=== PATIENT | male | born 1940 | race Caucasian/White ===

== ENCOUNTER 2016-11-15 10:09 | Emergency (ER) | payer MEDICARE, OTHER ==
[2016-11-15] MEDS ORDERED: IPRATROPIUM-ALBUTEROL 3 ML NEB INHALATION STA (10:27)
[2016-11-15] MEDS ORDERED: RX INFO: IV CONTRAST WAS GIVEN 1 EACH MISC MISCELLANE PRN (10:56)
[2016-11-15 10:58] LABS: Basophils # (A) 0.1 k/uL (0-0.2); Basophils % (A) 1 %; CH 31.1; CHCM 33.5; Eosinophils # (A) 0.2 k/uL (0-0.7); Eosinophils % (A) 3 %; HCT 41.3 % (39.0-53.0); HDW 2.22; HGB 13.7 gm/dL (13.0-17.5); Luc # (Auto) 0.12; Luc % (Auto) 2; Lymphocytes % (A) 13 %; MCHC 33.1 g/dL (31.0-37.0); MCV 93.4 fL (80.0-100.0); Mean Platelet Volume 6.7; Monocytes # (A) 0.5 k/uL (0-1.0); Monocytes % (A) 7 %; Neutrophils % (A) 76 %; RBC 4.42 m/uL (4.30-5.90); RDW 13.1 % (11.5-15.5); WBC 7.9 k/uL (3.8-10.6); WBC (Perox) 7.99
[2016-11-15 11:06] LABS: INR 1.1 (<1.1); Partial Thromboplastin Time 22.6 sec (22.0-30.0)
[2016-11-15 11:07] LABS: ALT 15 U/L (21-72); AST 23 U/L (17-59); Alkaline Phosphatase 78 U/L (38-126); Anion Gap 11 mmol/L; Blood Urea Nitrogen 11 mg/dL (9-20); Calcium 9.2 mg/dL (8.4-10.2); Carbon Dioxide 27 mmol/L (22-30); Chloride 105 mmol/L (98-107); Glucose 103 mg/dL (74-99); Magnesium 1.9 mg/dL (1.6-2.3); Non-African American GFR(MDRD) >60 (>60 ml/min/1.73 sqM); Potassium 3.9 mmol/L (3.5-5.1); Sodium 143 mmol/L (137-145); Total Bilirubin 0.8 mg/dL (0.2-1.3); Total Protein 7.6 g/dL (6.3-8.2)
[2016-11-15 11:09] VITALS: RESP 18
[2016-11-15 11:24] LABS: Creatine Kinase 57 U/L (55-170)
[2016-11-15 11:37] LABS: Creatine Kinase MB 0.4 ng/mL (0.0-2.4); Troponin I <0.012 ng/mL (0.000-0.034)
--- NOTE | 2016-11-15 11:54 | XR ---
EXAMINATION TYPE: XR chest 2V DATE OF EXAM: 11/15/2016 11:22 AM COMPARISON: Chest x-ray August HISTORY: Difficulty breathing, dyspnea TECHNIQUE: Frontal and lateral views of the chest are obtained. FINDINGS: Bilateral airspace disease is noted with associated bronchiectasis at the lung bases, ther e is a scarring. Pleural calcification noted along the right hemidiaphragm. There is no pneumothorax or pleural effusion. Heart size is stable. There are overlying cardiac leads. IMPRESSION: Correlate for pneumonia bilaterally, bronchiectasis.
--- NOTE | 2016-11-15 12:11 | CT ---
EXAMINATION TYPE: CT angio chest DATE OF EXAM: 11/15/2016 11:43 AM COMPARISON: NONE HISTORY: Shortness of breath. CT DLP: 323.8 mGycm Automated exposure control for dose reduction was used. CONTRAST: CTA scan of the thorax is performed with IV Contrast, patient injected with 100 mL of Omnipaque 300, pulmonary embolism protocol. FINDINGS: There is extensive bronchiectasis and consolidation at both lung bases. There are groundgla ss opacities throughout the left lung. There is a 9.3 mm spiculated density in the posterior segment of the right upper lobe. There is a 2.9 cm groundglass nodule in the apical posterior segment of the right upper lobe. There is a 2.8 cm groundglass nodule in the left lingula. There is a solid-appearin g 9.4 mm nodule in the left lingula best seen on image 82. There is a 3 cm ground glass nodule in the anterior segment of the left upper lobe. There is no significant axillary adenopathy. There are small shoddy aortopulmonary window lymph nodes . No pathologically enlarged lymph nodes are seen. This examination is negative for pulmonary embolus. The aorta is normal in caliber without evidence of dissection. The heart is enlarged. There is no ple ural or pericardial fluid. There is pleural calcification overlying the right hemidiaphragm. There is evidence of old granulomatous disease within the spleen. There is a 4.9 cm exophytic mass arising from the upper pole of the right kidney. This likely represe nts a cyst. Visualized portions of the upper abdomen are otherwise unremarkable. 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 IMPRESSION: 1. THIS EXAMINATION IS NEGATIVE FOR PULMONARY EMBOLUS. 2. EXTENSIVE BRONCHIECTASIS IN THE LOWER LOBES BILATERALLY. 3. EXTENSIVE GROUNDGLASS OPACITIES WELL SOLID PULMONARY NODULES PRESENT BILATERALLY. 4. EVIDENCE OF OLD SPECIFICITY EXPOSURE. 5. EVIDENCE OF OLD GRANULOMATOUS DISEASE WITHIN THE SPLEEN. 6. PROBABLE CYST IN THE UPPER POLE OF THE RIGHT KIDNEY. THIS SHOULD BE CONFIRMED WITH ULTRASOUND. 7. 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
--- NOTE | 2016-11-15 12:14 | ED ---
SOB HPI - General Chief Complaint: Shortness of Breath Stated Complaint: diff breathing Time Seen by Provider: 11/15/16 10:20 Source: patient, RN notes reviewed Mode of arrival: ambulatory Limitations: no limitations - History of Present Illness Initial Comments: This is a 76-year-old male with a history of bronchiectasis who presents with complaints of some chest discomfort occurs with breathing. He describes pleuritic type discomfort especially on the left no overt fevers chills and sweats he states he coughs all the time. He was instructed to come here for evaluation. He denies any chest pain at rest 1 with deep breathing no palpitations no lightheadedness or dizziness no other symptoms MD Complaint: shortness of breath, chest pain - Related Data Home Medications Medication Instructions Recorded Confirmed Albuterol Nebulized [Ventolin 2.5 mg INHALATION RT-Q4H PRN 11/15/16 11/15/16 Nebulized] Aspirin 81 mg PO DAILY 11/15/16 11/15/16 Ciprofloxacin HCl [Cipro] 500 mg PO Q12HR 11/15/16 11/15/16 Levothyroxine Sodium [Synthroid] 100 mcg PO DAILY 11/15/16 11/15/16 Omeprazole [PriLOSEC] 20 mg PO AC-BRKFST 11/15/16 11/15/16 Tamsulosin HCl [Flomax] 0.4 mg PO HS 11/15/16 11/15/16 Allergies Allergy/AdvReac Type Severity Reaction Status Date / Time No Known Allergies Allergy Verified 11/15/16 11:16 Review of Systems ROS Statement: Those systems with pertinent positive or pertinent negative responses have been documented in the HPI. ROS Other: All systems not noted in ROS Statement are negative. Past Medical History Additional Past Medical History / Comment(s): Bronchiectasis History of Any Multi-Drug Resistant Organisms: None Reported Past Surgical History: Orthopedic Surgery Additional Past Surgical History / Comment(s): thyroidectomy, right knee Past Psychological History: No Psychological Hx Reported Smoking Status: Former smoker Past Alcohol Use History: Occasional Past Drug Use History: None Reported General Exam - General Exam Comments Initial Comments: This is a well-developed well-nourished awake alert oriented 3 male Limitations: no limitations General appearance: alert, in no apparent distress Head exam: Present: atraumatic, normocephalic, normal inspection Eye exam: Present: normal appearance, PERRL, EOMI. Absent: scleral icterus, conjunctival injection, periorbital swelling ENT exam: Present: normal exam, mucous membranes moist Neck exam: Present: normal inspection. Absent: tenderness, meningismus, lymphadenopathy Respiratory exam: Present: rhonchi, decreased breath sounds. Absent: respiratory distress, wheezes, rales, stridor Cardiovascular Exam: Present: regular rate, normal rhythm, normal heart sounds. Absent: systolic murmur, diastolic murmur, rubs, gallop, clicks GI/Abdominal exam: Present: soft, normal bowel sounds. Absent: distended, tenderness, guarding, rebound, rigid Extremities exam: Present: normal inspection, full ROM, normal capillary refill. Absent: tenderness, pedal edema, joint swelling, calf tenderness Back exam: Present: normal inspection Neurological exam: Present: alert, oriented X3, CN II-XII intact Psychiatric exam: Present: normal affect, normal mood Skin exam: Present: warm, dry, intact, normal color. Absent: rash Course Vital Signs 11/15/16 11/15/16 11/15/16 10:10 10:58 11:07 Temperature 97.2 F L Pulse Rate 93 80 Respiratory 18 16 18 Rate Blood Pressure 153/74 O2 Sat by Pulse 91 L Oximetry 11/15/16 11/15/16 11/15/16 11:24 11:51 12:29 Temperature 98.4 F Pulse Rate 78 81 77 Respiratory 18 18 18 Rate Blood Pressure 137/81 129/75 153/82 O2 Sat by Pulse 94 L 95 95 Oximetry Medical Decision Making - Medical Decision Making I did discuss findings with the patient and with Dr. Vela. Patient be placed on oral steroids the patient will be discharged. - Lab Data Result diagrams: 11/15/16 10:45 11/15/16 10:45 Lab Results 11/15/16 11/15/16 11/15/16 Range/Units 10:45 10:45 10:45 WBC 7.9 (3.8-10.6) k/uL RBC 4.42 (4.30-5.90) m/uL Hgb 13.7 (13.0-17.5) gm/dL Hct 41.3 (39.0-53.0) % MCV 93.4 (80.0-100.0) fL MCH 31.0 (25.0-35.0) pg MCHC 33.1 (31.0-37.0) g/dL RDW 13.1 (11.5-15.5) % Plt Count 275 (150-450) k/uL Neutrophils % 76 % Lymphocytes % 13 % Monocytes % 7 % Eosinophils % 3 % Basophils % 1 % Neutrophils # 6.0 (1.3-7.7) k/uL Lymphocytes # 1.0 (1.0-4.8) k/uL Monocytes # 0.5 (0-1.0) k/uL Eosinophils # 0.2 (0-0.7) k/uL Basophils # 0.1 (0-0.2) k/uL PT (9.0-12.0) sec INR (<1.1) APTT (22.0-30.0) sec Sodium 143 (137-145) mmol/L Potassium 3.9 (3.5-5.1) mmol/L Chloride 105 (98-107) mmol/L Carbon Dioxide 27 (22-30) mmol/L Anion Gap 11 mmol/L BUN 11 (9-20) mg/dL Creatinine 0.62 L (0.66-1.25) mg/dL Est GFR (MDRD) Af Amer >60 (>60 ml/min/1.73 sqM) Est GFR (MDRD) Non-Af >60 (>60 ml/min/1.73 sqM) Glucose 103 H (74-99) mg/dL Calcium 9.2 (8.4-10.2) mg/dL Magnesium 1.9 (1.6-2.3) mg/dL Total Bilirubin 0.8 (0.2-1.3) mg/dL AST 23 (17-59) U/L ALT 15 L (21-72) U/L Alkaline Phosphatase 78 (38-126) U/L Total Creatine Kinase 57 (55-170) U/L CK-MB (CK-2) 0.4 (0.0-2.4) ng/mL CK-MB (CK-2) Rel Index 0.7 Troponin I <0.012 (0.000-0.034) ng/mL NT-Pro-B Natriuret Pep pg/mL Total Protein 7.6 (6.3-8.2) g/dL Albumin 3.9 (3.5-5.0) g/dL 11/15/16 11/15/16 Range/Units 10:45 10:45 WBC (3.8-10.6) k/uL RBC (4.30-5.90) m/uL Hgb (13.0-17.5) gm/dL Hct (39.0-53.0) % MCV (80.0-100.0) fL MCH (25.0-35.0) pg MCHC (31.0-37.0) g/dL RDW (11.5-15.5) % Plt Count (150-450) k/uL Neutrophils % % Lymphocytes % % Monocytes % % Eosinophils % % Basophils % % Neutrophils # (1.3-7.7) k/uL Lymphocytes # (1.0-4.8) k/uL Monocytes # (0-1.0) k/uL Eosinophils # (0-0.7) k/uL Basophils # (0-0.2) k/uL PT 11.0 (9.0-12.0) sec INR 1.1 (<1.1) APTT 22.6 (22.0-30.0) sec Sodium (137-145) mmol/L Potassium (3.5-5.1) mmol/L Chloride (98-107) mmol/L Carbon Dioxide (22-30) mmol/L Anion Gap mmol/L BUN (9-20) mg/dL Creatinine (0.66-1.25) mg/dL Est GFR (MDRD) Af Amer (>60 ml/min/1.73 sqM) Est GFR (MDRD) Non-Af (>60 ml/min/1.73 sqM) Glucose (74-99) mg/dL Calcium (8.4-10.2) mg/dL Magnesium (1.6-2.3) mg/dL Total Bilirubin (0.2-1.3) mg/dL AST (17-59) U/L ALT (21-72) U/L Alkaline Phosphatase (38-126) U/L Total Creatine Kinase (55-170) U/L CK-MB (CK-2) (0.0-2.4) ng/mL CK-MB (CK-2) Rel Index Troponin I (0.000-0.034) ng/mL NT-Pro-B Natriuret Pep 56 pg/mL Total Protein (6.3-8.2) g/dL Albumin (3.5-5.0) g/dL - EKG Data -: EKG Interpreted by Me EKG shows normal: sinus rhythm ([place] [address] QRS duration 96 QT/QTC of 370/444 left exodeviation some evidence of LVH.) - Radiology Data Radiology results: report reviewed (I did review the imaging and reports no acute findings.), image reviewed Disposition Clinical Impression: Bronchiectasis, Pleurisy Disposition: HOME SELF-CARE Condition: Good Instructions: Bronchiectasis (ED), Pleurisy (ED) Additional Instructions: Prednisone taper as directed 30 mg per day 5 days followed by 20 mg a day 5 days followed by 10 mg daily 5 days Referrals: None,Stated [Primary Care Provider] - 1-2 days Vangie Vela MD [STAFF PHYSICIAN] - 1-2 days
[2016-11-15 12:30] VITALS: PULSE 77
[2016-11-15] MEDS ORDERED: methylPREDNISolone SOD SUCCI 125 MG/2 ML VIAL IV STA (13:00)
[2016-11-15 13:15] VITALS: BP 135/79; TEMP 98.8
== END 2016-11-15 13:42 | disposition home or self-care (01) ==
LOC: EC 10:09
DX: J47.9 Bronchiectasis, uncomplicated (principal); R09.1 Pleurisy; Z87.891 Personal history of nicotine dependence; Z79.82 Long term (current) use of aspirin; Z79.899 Other long term (current) drug therapy
CPT/HCPCS: 36415; 94640; 93005; 83880; 80053; 82550; 82553; 83735; 84484; 85025; 85610; 85730; 71020; 71275; 99285; 96374; J2930; Q9967

== ENCOUNTER → 2017-03-06 | Outpatient (CLI) | payer MEDICARE, OTHER ==
[2017-03-06 13:24] LABS: Blood Urea Nitrogen 13 mg/dL (9-20); Non-African American GFR(MDRD) >60 (>60 ml/min/1.73 sqM)
--- NOTE | 2017-03-06 14:28 | CT ---
EXAMINATION TYPE: CT chest w con DATE OF EXAM: 03/06/2017 COMPARISON: 11/15/2016 TECHNIQUE: PA and lateral views submitted. HISTORY: Follow-up pulmonary nodule Contrast: 100 mL Omnipaque 300 FINDINGS: There is a right-sided hydropneumothorax measuring approximately 10-15%. No mediastinal deviation. Multiple pulmonary nodules are again noted and appear to be stable. Large bulla in the left lower lob e. Tree-in-bud appearance within both lower lobes can be seen occasionally with granulomatous disease or opportunistic infection. Areas of consolidation seen bilaterally including anterior segment left upper lobe and posterior segm ent right upper lobe. Marked bronchiectasis is noted involving the lung bases. Incidental note made of a splenic granuloma and coronary artery calcification There is extensive bronchiectasis and consolidation at both lung bases. There are groundglass opaciti es throughout the left lung. There is a 9.3 mm spiculated density in the posterior segment of the rig ht upper lobe. There is a 2.9 cm groundglass nodule in the apical posterior segment of the right uppe r lobe. There is a 2.8 cm groundglass nodule in the left lingula. There is a solid-appearing 9.4 mm n odule in the left lingula. There is a 3 cm ground glass nodule in the anterior segment of the left up per lobe. There is no significant axillary adenopathy. There are small shoddy aortopulmonary window lymph nodes . No pathologically enlarged lymph nodes are seen. Shotty adenopathy in the mediastinum noted. Accessory spleen noted. Cardiomegaly stable. The aorta is normal in caliber without evidence of dissection. The heart is enlarged. There is no ple ural or pericardial fluid. There is pleural calcification overlying the right hemidiaphragm. There is evidence of old granulomatous disease within the spleen. There is a 4.9 cm exophytic mass arising from the upper pole of the right kidney. This likely represe nts a cyst. Visualized portions of the upper abdomen are otherwise unremarkable. 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 Scoliotic curvature of the spine. C onsolidative process. Fatty replacement of the body and tail the pancreas. Atherosclerotic change aor ta. Calcified lymph nodes in the hilum noted. Correlate for chronic obstructive pulmonary disease. IMPRESSION: 1. Approximate 10-15% hydropneumothorax. Report called to patient's physician. 2. Severe changes of bronchiectasis involving the lower lungs bilaterally with bilateral areas of inf iltrate and subsegmental consolidation. Tree-in-bud pattern seen bilaterally which can be associated with atypical or opportunistic infection or granulomatous disease. 3. Multiple pulmonary nodules are again noted and appear stable. Malignancy not excluded. Pleural li cification may been the basis of asbestosis related disease.
== END | disposition home or self-care (01) ==
LOC: RADCTMAIN 12:07
PROVIDERS: ATTEND Internal Medicine
DX: J18.1 Lobar pneumonia, unspecified organism (principal); J47.9 Bronchiectasis, uncomplicated; R91.8 Other nonspecific abnormal finding of lung field; Z88.1 Allergy status to other antibiotic agents
CPT/HCPCS: 82565; 84520; 71260; 36415; Q9967

== ENCOUNTER 2017-08-05 16:47 | Inpatient (IN) | payer MEDICARE, OTHER ==
[2017-08-05] MEDS ORDERED: PNEUMONIA PROTOCOL UTILIZED 1 EACH MISC PO PRN (17:33)
[2017-08-05] MEDS ORDERED: IPRATROPIUM-ALBUTEROL 3 ML NEB INHALATION PRN (17:33)
--- NOTE | 2017-08-05 17:33 | ED ---
General Adult HPI - General Chief complaint: Recheck/Abnormal Lab/Rx Stated complaint: sepsis/pneumonia Time Seen by Provider: 08/05/17 17:08 Source: patient, EMS, RN notes reviewed, old records reviewed Mode of arrival: EMS Limitations: no limitations - History of Present Illness Initial comments: Patient is a pleasant 77-year-old male presenting to the emergency department as a transfer from [facility]. Patient was transferred for level of care. 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 Patient woke up this morning with fever and did have nausea with some episodes of vomiting. Patient was generally weak and unable to walk. Patient does have cough and shortness of breath however this is mostly chronic. An [facility] patient was found to have bilateral pneumonia and sepsis. Patient was started on levothyroid and given IV antibiotics. Patient states he is starting to feel better. - Related Data Home Medications Medication Instructions Recorded Confirmed Albuterol Nebulized [Ventolin 2.5 mg INHALATION RT-TID PRN 11/15/16 08/05/17 Nebulized] Aspirin 81 mg PO DAILY 11/15/16 08/05/17 Ciprofloxacin HCl [Cipro] 500 mg PO Q12HR 11/15/16 08/05/17 Levothyroxine Sodium [Synthroid] 100 mcg PO DAILY 11/15/16 08/05/17 Omeprazole [PriLOSEC] 20 mg PO DAILY 11/15/16 08/05/17 guaiFENesin [Mucinex] 600 mg PO BID PRN 08/05/17 08/05/17 predniSONE 10 mg PO DAILY PRN 08/05/17 08/05/17 Allergies Allergy/AdvReac Type Severity Reaction Status Date / Time No Known Allergies Allergy Verified 08/05/17 17:21 Review of Systems ROS Statement: Those systems with pertinent positive or pertinent negative responses have been documented in the HPI. ROS Other: All systems not noted in ROS Statement are negative. Constitutional: Reports: fever, chills, weakness Eyes: Denies: eye pain ENT: Denies: ear pain Respiratory: Reports: cough, dyspnea Cardiovascular: Denies: chest pain Endocrine: Reports: fatigue Gastrointestinal: Reports: nausea, vomiting. Denies: abdominal pain Genitourinary: Denies: dysuria Musculoskeletal: Denies: back pain Skin: Denies: rash Neurological: Denies: headache Past Medical History Additional Past Medical History / Comment(s): Bronchiectasis History of Any Multi-Drug Resistant Organisms: None Reported Past Surgical History: Orthopedic Surgery Additional Past Surgical History / Comment(s): thyroidectomy, right knee Past Psychological History: No Psychological Hx Reported Smoking Status: Former smoker Past Alcohol Use History: Occasional Past Drug Use History: None Reported General Exam Limitations: no limitations General appearance: alert, in no apparent distress Head exam: Present: atraumatic Eye exam: Present: normal appearance, PERRL ENT exam: Present: normal oropharynx Neck exam: Present: normal inspection Respiratory exam: Present: wheezes, rales Cardiovascular Exam: Present: regular rate, normal rhythm GI/Abdominal exam: Present: soft. Absent: tenderness Extremities exam: Present: normal inspection Neurological exam: Present: alert Psychiatric exam: Present: normal affect, normal mood Skin exam: Present: normal color Course Vital Signs 08/05/17 16:55 Temperature 97.9 F Pulse Rate 88 Respiratory 18 Rate Blood Pressure 111/63 O2 Sat by Pulse 89 L Oximetry - Reevaluation(s) Reevaluation #1: 08/05/17 17:24 Chart reviewed from [facility]. 08/05/17 17:26 Case was discussed with practitioner Karen, who will admit for Dr. james, covering for patient's stated primary care physician Dr. Perez. Patient states he sees Dr. Vela for pulmonology. Dr. Thompson has been paged. 08/05/17 17:27 Patient did meet criteria for septic shock prior to arrival. Lactic acid was done at 1.2. IV antibiotics were already started. Patient did receive fluid boluses. Patient was started on Levophed. Unclear if blood cultures were drawn and will be added at this time. 08/05/17 17:54 Case was discussed with Dr. Thompson, who will consult. EKG Findings - EKG Comments: EKG Findings:: Sinus rhythm and 90. ID 160. QRS 92. QT 372. QTC 455. Left axis. Normal QRS. No acute ST change. Procedures - Sepsis Sepsis Focused Exam #1 Sepsis Focused Exam Date: 08/05/17 Sepsis Focused Exam Time: 17:36 Sepsis Focused Exam Complete: Yes Vital Signs & RN Notes Reviewed: Yes Capillary Refill: < 2 Seconds: Fingers, Toes Peripheral Pulses: Normal: Radial (R), Radial (L) Skin Color: Normal for Patient Respiratory Exam: wheezes, rales Cardiovascular Exam: regular rate, normal rhythm Disposition Clinical Impression: Septic shock, Pneumonia Disposition: ADMITTED IP TO THIS HOSP Condition: Serious Referrals: Vangie Vela MD [Primary Care Provider] - 1-2 days Decision Time: 17:27
[2017-08-05 18:04] LABS: Basophils % (A) 0 %; Eosinophils % (A) 0 %; HCT 39.1 % (39.0-53.0); HGB 12.8 gm/dL (13.0-17.5); Lymphocytes # (A) 0.2 k/uL (1.0-4.8); Lymphocytes % (A) 1 %; MCH 30.1 pg (25.0-35.0); MCHC 32.8 g/dL (31.0-37.0); MCV 91.9 fL (80.0-100.0); Mean Platelet Volume 6.5; Monocytes # (A) 0.6 k/uL (0-1.0); Monocytes % (A) 4 %; Neutrophils # (A) 16.2 k/uL (1.3-7.7); Neutrophils % (A) 95 %; Platelet Count 175 k/uL (150-450); RBC 4.25 m/uL (4.30-5.90); RDW 14.3 % (11.5-15.5); WBC 17.1 k/uL (3.8-10.6)
[2017-08-05 18:18] LABS: ALT 20 U/L (21-72); AST 28 U/L (17-59); Albumin 3.2 g/dL (3.5-5.0); Alkaline Phosphatase 58 U/L (38-126); Anion Gap 9 mmol/L; Blood Urea Nitrogen 16 mg/dL (9-20); Calcium 8.4 mg/dL (8.4-10.2); Carbon Dioxide 27 mmol/L (22-30); Chloride 104 mmol/L (98-107); Glucose 103 mg/dL (74-99); Potassium 4.2 mmol/L (3.5-5.1); Sodium 140 mmol/L (137-145); Total Bilirubin 0.6 mg/dL (0.2-1.3); Total Protein 6.2 g/dL (6.3-8.2)
[2017-08-05] MEDS: SODIUM CHLORIDE 0.9% 1,000 ML IV SCH (19:09)
[2017-08-05] MEDS ORDERED: ACETAMINOPHEN TAB 500 MG TAB PO STA (19:19)
[2017-08-05] MEDS ORDERED: guaiFENesin 600 MG TABLET.ER PO PRN (20:34)
[2017-08-05] MEDS: IPRATROPIUM-ALBUTEROL 3 ML NEB INHALATION SCH (21:32)
[2017-08-05 21:42] VITALS: BMI 24.8
[2017-08-05] MEDS ORDERED: LEVOFLOXACIN 750MG-D5W PMX 750 MG in DEXTROSE/WATER 1 150ML.BAG IVPB SCH (22:00)
[2017-08-05] MEDS: PIPERACILLIN-TAZOBACTAM 3.375 GM in DEXTROSE/WATER 1 50ML.BAG IVPB SCH (23:34)
[2017-08-06] MEDS: ACETAMINOPHEN TAB 325 MG TAB PO PRN ×2 (06:27→14:11)
[2017-08-06] MEDS: LEVOTHYROXINE 100 MCG TAB PO SCH (06:27)
[2017-08-06] MEDS: SODIUM CHLORIDE 0.9% 1,000 ML IV SCH ×2 (06:29→11:22)
[2017-08-06] MEDS: IPRATROPIUM-ALBUTEROL 3 ML NEB INHALATION SCH ×4 (07:49→20:10)
--- NOTE | 2017-08-06 08:40 | XR ---
EXAMINATION TYPE: XR chest 2V DATE OF EXAM: 08/06/2017 COMPARISON: 08/05/2017 TECHNIQUE: PA and lateral views submitted. HISTORY: Cough FINDINGS: Bilateral lower lobe infiltrate noted. Small right effusion seen. Suggestion of pleural-based calcifi cation along the right diaphragm. Apical pleural thickening on the right stable. Arthropathy of the s houlders and atherosclerotic change aorta. Heart size stable. Underlying COPD suspected. IMPRESSION: 1. Bilateral lower lobe infiltrate greater on the right stable.
[2017-08-06] MEDS: PIPERACILLIN-TAZOBACTAM 3.375 GM in DEXTROSE/WATER 1 50ML.BAG IVPB SCH ×3 (09:19→23:22)
[2017-08-06] MEDS: ASPIRIN 81 MG PO SCH (09:19)
--- NOTE | 2017-08-06 13:33 | P.CNPUL ---
History of Present Illness Consult date: 08/06/17 Reason for consult: dyspnea, cough, COPD, hypoxemia, pneumonia, abnormal CXR/CT Chief complaint: Shortness of breath History of present illness: Consult dated 08/06/2017 77-year-old male who sees my partner for his bronchiectasis. His primary doctor is Dr. Perez. The patient apparently presented to the emergency room up in that area with complaints of increasing shortness of breath difficulty breathing. The patient was very congested. Could barely walk. Could even get up from the chair at home. Has significant no wet congested cough. He was producing some yellow phlegm. He was very short of breath. He was wheezing. He does have chronic complaints similar to this but this was more than acute episode. He apparently was in the hospital in April here, with a similar episode. He was seen in the emergency room by with a diagnosis of acute pneumonia and possible sepsis. Initially Dr. Willard thought he might have to come to the ICU because he was mildly hypotensive. That responded very nicely to fluid administration. His bronchiectasis he takes updraft treatments with albuterol. Also takes ciprofloxacin 500 mg twice a day for the first 10 days of every month uses Synthroid for his hypothyroidism Prilosec for his acid reflux disease Mucinex for his bronchiectasis and prednisone 10 mg when necessary. The patient also apparently uses N- acetylcysteine as a mucolytic and his nebulizer machine. Review of Systems A 12 point review of system is positive for shortness of breath chest congestion cough wheezing and phlegm production. Past Medical History Past Medical History: Pneumonia, Thyroid Disorder Additional Past Medical History / Comment(s): Bronchiectasis History of Any Multi-Drug Resistant Organisms: None Reported Past Surgical History: Orthopedic Surgery, Tonsillectomy Additional Past Surgical History / Comment(s): thyroidectomy, right knee Past Psychological History: No Psychological Hx Reported Smoking Status: Former smoker Past Alcohol Use History: Occasional Past Drug Use History: None Reported Medications and Allergies Home Medications Medication Instructions Recorded Confirmed Type Albuterol Nebulized [Ventolin 2.5 mg INHALATION RT-TID PRN 11/15/16 08/05/17 History Nebulized] Aspirin 81 mg PO DAILY 11/15/16 08/05/17 History Ciprofloxacin HCl [Cipro] 500 mg PO Q12HR 11/15/16 08/05/17 History Levothyroxine Sodium [Synthroid] 100 mcg PO DAILY 11/15/16 08/05/17 History Omeprazole [PriLOSEC] 20 mg PO DAILY 11/15/16 08/05/17 History Terazosin [Hytrin] 2 mg PO HS 08/05/17 08/05/17 History guaiFENesin [Mucinex] 600 mg PO BID PRN 08/05/17 08/05/17 History predniSONE 10 mg PO DAILY PRN 08/05/17 08/05/17 History Allergies Allergy/AdvReac Type Severity Reaction Status Date / Time No Known Allergies Allergy Verified 08/05/17 17:21 Physical Exam Osteopathic Statement: *. No significant issues noted on an osteopathic structural exam other than those noted in the History and Physical/Consult. Vitals: Vital Signs Temp Pulse Pulse Resp BP BP Pulse Ox 08/06/17 11:24 88 08/06/17 08:02 96 08/06/17 08:00 98.3 F 96 18 116/66 91 L 08/06/17 07:51 92 93 L 08/06/17 06:30 101.7 F H 08/06/17 04:00 100.5 F H 100 18 120/68 97 08/06/17 00:00 98.2 F 77 18 98/56 98 08/05/17 20:36 98.5 F 08/05/17 20:30 98.5 F 84 18 97/56 97 08/05/17 20:01 83 14 106/66 93 L 08/05/17 19:25 97.0 F L 85 17 109/58 93 L 08/05/17 19:09 82 18 105/57 93 L 08/05/17 18:59 85 20 99/55 94 L 08/05/17 18:00 78 20 107/59 95 08/05/17 17:33 97 08/05/17 17:30 81 22 100/59 94 L 08/05/17 16:55 97.9 F 88 18 111/63 89 L Intake and Output 08/05/17 08/06/17 08/06/17 22:59 06:59 14:59 Intake Total 300 1000 Output Total 225 Balance 300 775 Intake: IV 300 800 0.9 300 800 Intake, IV Titration 200 Amount Levofloxacin 750Mg-D5w 150 Pmx 750 mg In Dextrose/ Water 1 150ml.bag @ 100 mls/hr IVPB Q24H [facility] Rx#: [id number] Piperacillin-Tazobactam 3 50 .375 gm In Dextrose/Water 1 50ml.bag @ 12.5 mls/hr IVPB Q8HR [facility] Rx#: [id number] Output: Urine 225 Other: Voiding Method Urinal Urinal Urinal Weight 78.471 kg 78.8 kg No acute distress, oriented 3. HEENT examination is grossly unremarkable. Mucous membranes are moist. No oral lesions. Neck supple. Full range of motion. No adenopathy thyromegaly or neck vein distention. Cardiovascular examination reveals regular rhythm rate. S1-S2 normal. No S3 or S4. No discernible murmur noted. Lungs reveal diffuse bilateral expiratory rhonchi and wheezes. The some bibasilar crackles. Breath sounds are diminished. There is prolongation on forced maneuver. Abdomen soft bowel sounds are heard. No masses or tenderness. Extremities are intact. No cyanosis clubbing or edema. Skin is without rash or lesion. Neurologic examination is brief but nonfocal. Results - Laboratory Findings CBC and BMP: 08/05/17 17:05 08/05/17 17:05 Abnormal lab findings: Abnormal Labs 08/05/17 08/05/17 17:05 17:05 WBC 17.1 H RBC 4.25 L Hgb 12.8 L Neutrophils # 16.2 H Lymphocytes # 0.2 L Glucose 103 H ALT 20 L Total Protein 6.2 L Albumin 3.2 L - Diagnostic Findings Chest x-ray: image reviewed (Labs x-rays a medications are reviewed. The patient interviewed and examined.) Assessment and Plan Assessment: Assessment Exacerbation of the patient's underlying bronchiectasis/COPD, likely exacerbated by purulent tracheobronchitis or bronchopneumonia Hypothyroidism COPD Bronchiectasis Chronic cough Gastroesophageal reflux disease Plan: Plan dated 06/05/2018 The patient's medications are reviewed. He is on DuoNeb 4 times a day and when necessary. He also is on Zosyn 3.375 g every 8 hours. In addition, we will add some Perforomist plus Pulmicort twice a day. We'll also make sure he gets some Solu-Medrol. Additional recommendations and suggestions are forthcoming. Prognosis is guarded. Time with Patient: Greater than 30
[2017-08-06] MEDS: PANTOPRAZOLE 40 MG TABLET PO SCH (17:12)
[2017-08-06] MEDS: methylPREDNISolone SOD SUCCI 40 MG/ML 1 ML VIAL IV SCH ×2 (17:12→23:22)
--- NOTE | 2017-08-06 17:33 | HP ---
HISTORY AND PHYSICAL DATE OF ADMISSION: 08/05/2017. PRESENTING COMPLAINT: Cough, fever. HISTORY OF PRESENTING COMPLAINT: This is a 77-year-old patient of Dr. Perez. Also follows with Dr. Vela. Back in 2013 [place] was [place], he had an episode of coughing up blood, chest infection, with diagnosis of bronchiectasis. The patient's chronic stable medical conditions otherwise include hypothyroidism and BPH. The patient presents with 1 week of increasing cough, shortness of breath, runny nose, temperature up to 103, having some chills, feeling extremely weak and tired. He presented for the same. Chest x-ray showing basilar infiltrates. The patient was put on antibiotics and admitted for that. REVIEW OF SYSTEMS: Constitutional: Febrile. Decreased appetite, weak, tired. HEENT: Runny nose. RESPIRATORY: As above. CARDIOVASCULAR: None. GASTROINTESTINAL: Some constipation. GENITOURINARY: None. MUSCULOSKELETAL: None. DERMATOLOGIC: None. HEMATOLOGIC: None. LYMPHATICS: None. PSYCHIATRY: None. NEUROLOGIC: None. PAST HISTORY: Bronchiectasis, BPH, hypothyroidism. PAST SURGICAL HISTORY: Orthopedic surgery, tonsillectomy, thyroidectomy, right knee surgery. SOCIAL HISTORY: Alcohol occasionally. Smoked for about 20 years, stopped in 1992. 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 . FAMILY HISTORY: Reviewed, noncontributory to presentation. HOME MEDICATIONS: 1. Hytrin 2 mg at bedtime. 2. Mucinex 600 mg p.o. b.i.d. p.r.n. 3. Prilosec 20 mg p.o. daily. 4. Synthroid 100 mcg p.o. daily. 5. Cipro 500 mg p.o. every 12. 6. Aspirin 81 mg p.o. daily. 7. Ventolin 2.5 t.i.d. p.r.n. 8. Prednisone 10 mg p.o. daily p.r.n. ALLERGIES: None. PHYSICAL EXAMINATION: On examination, T-max 101.7 this morning, pulse 96, respirations 18, blood pressure 106/67, pulse ox 91% room air. GENERAL APPEARANCE: Average build, sitting up, tired appearing. EYES: Pupils are normal. HEENT: Oral cavity normal. NECK: JVD not raised. Mass not palpable. RESPIRATORY: Effort increased. LUNGS: Decreased breath sounds. Expiratory crackles especially in the right base. Inspiratory crackles. CARDIOVASCULAR: 1st and 2nd sounds. No edema. ABDOMEN: Soft, nontender. Liver and spleen not palpable. LYMPHATIC: No lymph nodes palpable in the neck or axillae. PSYCHIATRIC: Alert, oriented x3. Mood and affect normal. NEUROLOGIC: Pupils equal. Cranial nerves grossly intact. Power and sensation grossly intact. INVESTIGATIONS: Chest x-ray shows infiltrates, mostly on the right side. White count 17.1, hemoglobin 12.8, platelets 135, potassium 4.2 BUN and creatinine normal. Chest x-ray showing bilateral infiltrates. ASSESSMENT: 1. Acute bilateral pneumonia, suspect gram-negative organism. 2. Chronic bronchiectasis. 3. Hypothyroidism. 4. Benign prostatic hypertrophy. 5. Acute chronic obstructive pulmonary disease exacerbation in an ex-smoker. 6. Sepsis from bilateral pneumonia, present on admission. PLAN: Patient is put on IV Zosyn. Nebulized bronchodilators and steroids. Other home medications resumed. Care was discussed with the patient. Pulmonary, Dr. Padilla, was consulted. MMODL / IJN: [id number] /
[2017-08-06] MEDS: BUDESONIDE 1 MG/2 ML NEBU INHALATION SCH (20:10)
[2017-08-06] MEDS: FORMOTEROL FUMARATE 20 MCG/2 ML NEBU INHALATION SCH (20:10)
[2017-08-06 20:49] LABS: Glucose,Whole Blood 124 mg/dL (75-99)
[2017-08-06] MEDS ORDERED: LEVOFLOXACIN 750 MG TAB PO SCH (21:00)
[2017-08-06] MEDS: INSULIN ASPART 100 UNIT/ML 1 ML 10 ML VIAL SQ SCH (21:32)
[2017-08-06] MEDS: DOXAZOSIN 2 MG TAB PO SCH (21:32)
[2017-08-07 03:40] LABS: Hemoglobin A1C 5.7 % (4.0-6.0)
[2017-08-07] MEDS: SODIUM CHLORIDE 0.9% 1,000 ML IV SCH ×2 (04:58→06:50)
[2017-08-07 06:09] LABS: Glucose,Whole Blood 120 mg/dL (75-99)
[2017-08-07] MEDS: INSULIN ASPART 100 UNIT/ML 1 ML 10 ML VIAL SQ SCH ×4 (06:31→22:19)
[2017-08-07] MEDS: methylPREDNISolone SOD SUCCI 40 MG/ML 1 ML VIAL IV SCH ×4 (06:49→23:13)
[2017-08-07] MEDS: PANTOPRAZOLE 40 MG TABLET PO SCH (06:50)
[2017-08-07] MEDS: LEVOTHYROXINE 100 MCG TAB PO SCH (06:50)
[2017-08-07] MEDS: ASPIRIN 81 MG PO SCH (08:03)
[2017-08-07] MEDS: IPRATROPIUM-ALBUTEROL 3 ML NEB INHALATION SCH ×4 (08:20→20:22)
[2017-08-07] MEDS: BUDESONIDE 1 MG/2 ML NEBU INHALATION SCH ×2 (08:20→20:22)
[2017-08-07] MEDS: FORMOTEROL FUMARATE 20 MCG/2 ML NEBU INHALATION SCH ×2 (08:20→20:22)
[2017-08-07] MEDS: PIPERACILLIN-TAZOBACTAM 3.375 GM in DEXTROSE/WATER 1 50ML.BAG IVPB SCH ×3 (08:43→23:13)
[2017-08-07 11:08] LABS: Glucose,Whole Blood 171 mg/dL (75-99)
--- NOTE | 2017-08-07 11:32 | P.PN ---
Subjective Progress Note Date: 08/07/17 Principal diagnosis: Acute exacerbation of bronchiectasis. This is a very pleasant 77-year-old gentleman who was admitted on 08/05/2017 for an acute exacerbation of his bronchiectasis and COPD. He follows with Dr. Vela in our office for the same. He is maintained on ciprofloxacin 500 mg twice a day for the first 10 days of each month. He also will take oral prednisone when needed. Presently he is sitting up in a chair at the bedside. He is awake and alert in no acute distress. He states he is breathing easier today as compared to yesterday. He is maintaining O2 saturations in the low 90s on room air. He's been afebrile. No tachycardia. No tachypnea. Blood pressure stable. Blood culture reveals no growth to date. Objective - Vital Signs Vital signs: Vital Signs Temp 97.5 F L 08/07/17 08:00 Pulse 84 08/07/17 11:08 Resp 16 08/07/17 08:00 BP 120/71 08/07/17 08:00 Pulse Ox 92 L 08/07/17 08:00 Intake & Output 08/06/17 08/07/17 08/07/17 18:59 06:59 18:59 Intake Total 240 360 Output Total 700 1300 800 Balance -460 -1300 -440 Weight 77.3 kg Intake: Oral 240 360 Output: Urine 700 1300 800 Other: Voiding Method Urinal Urinal Urinal # Voids 1 - Exam GENERAL EXAM: Alert, active, comfortable in no apparent distress. HEAD: Normocephalic. EYES: Normal reaction of pupils, equal size. NOSE: Clear with pink turbinates. THROAT: No erythema or exudates. NECK: No masses, no JVD. CHEST: No chest wall deformity. LUNGS: Equal air entry with coarse crackles in the bilateral posterior bases. CVS: S1 and S2 normal with no audible murmur, regular rhythm. ABDOMEN: No hepatosplenomegaly, normal bowel sounds, no guarding or rigidity. SPINE: No scoliosis or deformity SKIN: No rashes CENTRAL NERVOUS SYSTEM: No focal deficits, tone is normal in all 4 extremities. EXTREMITIES: There is no peripheral edema. No clubbing, no cyanosis. Peripheral pulses are intact. - Labs CBC & Chem 7: 08/05/17 17:05 08/05/17 17:05 Labs: Abnormal Lab Results - Last 24 Hours (Table) 08/06/17 08/07/17 08/07/17 Range/Units 20:47 06:03 11:05 POC Glucose (mg/dL) 124 H 120 H 171 H (75-99) mg/dL Microbiology - Last 24 Hours (Table) 08/05/17 17:05 Blood Culture - Preliminary Blood No Growth after 24 hours Assessment and Plan Assessment: Impression: #1 Acute exacerbation of bronchiectasis in combination with an acute exacerbation of chronic obstructive pulmonary disease. #2 Acute hypoxic respiratory failure secondary to above. #3 History of bronchiectasis treated with ciprofloxacin 500 mg twice a day the first 10 days of each month. Mucinex and prednisone as needed. #4 History of multiple stable pulmonary nodules in follow-up in the outpatient setting. 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 #5 Hypothyroidism with previous thyroidectomy. Plan: The patient was seen and evaluated by Dr. Padilla. We will continue with his current treatment for now. Continue IV Solu-Medrol, DuoNeb inhalations, Pulmicort and Perforomist inhalations, Mucinex, antibiotics in the form of Zosyn. We'll increase his activity as tolerated. We'll continue to follow and make further recommendations based on his clinical status. I, the cosigning physician, performed a history & physical examination of the patient. Lungs sounds have coarse crackles in the bilateral posterior bases. Maintaining good O2 saturations in the 90s on room air. I discussed the assessment and plan of care with my nurse practitioner, Sheree Boyd. I attest to the above note as dictated by her.
--- NOTE | 2017-08-07 14:12 | P.PN ---
Progress Note - Text Progress Note Date: 08/07/17 DATE OF SERVICE: 08/07/2017 PRESENTING COMPLAINT: Cough and fever HISTORY OF PRESENT ILLNESS: 77-year-old male had an episode of coughing up blood chest infection with diagnosis of bronchiectasis. Presented to the emergency department with 1 week of increased cough shortness of breath when he knows temperature of 103 and having some chills feeling extremely weak and tired. Chest x-ray shows bibasilar infiltrates. Admitted for the same. INTERVAL HISTORY: 08/07/2017 Sitting up in bed appears tired. States he did not sleep very well last night. Continues to have a cough which he is unable to produce any sputum. States his breathing is better than it was when he arrived. But still has some shortness of breath with exertion. Remains on nasal cannula. Tolerating his diet and states his appetite is still somewhat low eating between 30 and 40% of his meals. Ambulatory independently but has shortness of breath. Last BM 08/07. REVIEW OF SYSTEMS: Done for constitutional ,cardiovascular, GI, pulmonary with relevant findings as above. CURRENT MEDICATIONS Acetaminophen, DuoNeb, aspirin, Pulmicort, Cardura, Perforomist, Mucinex, insulin, levothyroxine, Solu-Medrol, Protonix, Zosyn. PHYSICAL EXAM VITAL SIGNS: Temperature 97.4, pulse 75, respiratory rate 18, blood pressure 126/78, oxygen saturation 92% on room air. GENERAL APPEARANCE: Sitting up in bed, tired appearing, not in distress. HENT: Normocephalic, JVD not raised. Mass not palpable. Oral cavity dry mucous membranes, external appearance of ears and nose normal. EYES:Pupils equal. Conjunctiva normal. RESPIRATORY: Respiratory effort mildly increased. Lungs diminished with coarse crackles bilaterally to auscultation. CARDIOVASCULAR: First and second sounds normal. No edema. ABDOMEN: Soft. Liver and spleen not palpable. No tenderness. No mass palpable. PSYCHIATRY: Alert and oriented x3. Mood and affect normal. INVESTIGATIONS: LABS: Accu-Cheks noted ASSESSMENT: -Acute bilateral pneumonia, suspect gram-negative organism. -Chronic bronchiectasis. -Hypothyroidism with previous thyroidectomy -Benign prostatic hypertrophy. -Acute chronic obstructive pulmonary disease exacerbation and an ex-smoker. -Sepsis from bilateral pneumonia, present on admission. PLAN: Continue IV Zosyn, and nebulized bronchodilators and IV steroids. Increase activities patient can tolerate. Discharge planning for next 24-48 hours based on patient condition. We will continue to follow closely. SYSTEMS ANALYST DEVELOPER statement: Patient was seen and examined by nurse practitioner Karen London and all elements of the case discussed with attending Dr. Acharya
[2017-08-07 16:26] LABS: Glucose,Whole Blood 144 mg/dL (75-99)
--- NOTE | 2017-08-07 19:10 | PN ---
PROGRESS NOTE DATE OF SERVICE: 08/07/2017 ATTENDING NOTE: The patient seen and examined by me. I discussed with my nurse practitioner, Cristelalexey. Patient admitted with pneumonia, bronchiectasis exacerbation. Also COPD exacerbation, still coughing up some sputum. Cough is a little bit better. EXAMINATION: Afebrile, pulse 75, respirations 18, blood pressure 120/78, pulse ox 92% on room air. LUNGS: Decreased breath sounds. Some expiratory crackles. Mild wheezing. Sitting up on bed. Accu-Cheks noted. Blood cultures pending. ASSESSMENT: 1. Acute bilateral pneumonia, suspect gram-negative organism, present on admission. 2. Acute chronic obstructive pulmonary disease exacerbation in an ex-smoker. 3. Possible acute on chronic bronchiectasis flare-up. 4. Hypothyroidism with previous thyroidectomy. 5. Benign prostatic hypertrophy. 6. Patient is on chronic ciprofloxacin 500 mg twice a day for the 1st 10 days of each month. 7. Multiple stable pulmonary nodules, being followed as an outpatient setting. 8. 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 9. Possible acute hypoxic respiratory failure present on admission per Pulmonary. PLAN: At this point, patient is on IV Solu-Medrol, IV Zosyn. Will send off a sputum. Will also add Mucinex. Care was discussed with the patient. MMODL / IJN: [id number] /
[2017-08-07] MEDS: guaiFENesin 600 MG TABLET.ER PO SCH (20:14)
[2017-08-07] MEDS: DOXAZOSIN 2 MG TAB PO SCH (20:15)
[2017-08-07 20:53] LABS: Glucose,Whole Blood 193 mg/dL (75-99)
[2017-08-08 06:16] LABS: Glucose,Whole Blood 136 mg/dL (75-99)
[2017-08-08 06:36] LABS: Basophils % (A) 0 %; Eosinophils % (A) 0 %; HCT 39.5 % (39.0-53.0); HGB 12.8 gm/dL (13.0-17.5); Lymphocytes # (A) 0.6 k/uL (1.0-4.8); Lymphocytes % (A) 8 %; MCH 29.6 pg (25.0-35.0); MCHC 32.4 g/dL (31.0-37.0); MCV 91.5 fL (80.0-100.0); Mean Platelet Volume 6.8; Monocytes # (A) 0.2 k/uL (0-1.0); Monocytes % (A) 2 %; Neutrophils % (A) 89 %; Platelet Count 154 k/uL (150-450); RBC 4.32 m/uL (4.30-5.90); RDW 13.9 % (11.5-15.5); WBC 7.9 k/uL (3.8-10.6)
[2017-08-08] MEDS: LEVOTHYROXINE 100 MCG TAB PO SCH (06:36)
[2017-08-08] MEDS: PANTOPRAZOLE 40 MG TABLET PO SCH (06:36)
[2017-08-08] MEDS: methylPREDNISolone SOD SUCCI 40 MG/ML 1 ML VIAL IV SCH ×2 (06:36→12:46)
[2017-08-08] MEDS: INSULIN ASPART 100 UNIT/ML 1 ML 10 ML VIAL SQ SCH ×2 (06:46→12:46)
[2017-08-08 06:49] LABS: Anion Gap 10 mmol/L; Blood Urea Nitrogen 13 mg/dL (9-20); Calcium 9.1 mg/dL (8.4-10.2); Carbon Dioxide 28 mmol/L (22-30); Chloride 103 mmol/L (98-107); Glucose 144 mg/dL (74-99); Sodium 141 mmol/L (137-145)
[2017-08-08] MEDS: IPRATROPIUM-ALBUTEROL 3 ML NEB INHALATION SCH ×3 (08:09→16:26)
[2017-08-08] MEDS: BUDESONIDE 1 MG/2 ML NEBU INHALATION SCH (08:09)
[2017-08-08] MEDS: FORMOTEROL FUMARATE 20 MCG/2 ML NEBU INHALATION SCH (08:09)
[2017-08-08] MEDS: guaiFENesin 600 MG TABLET.ER PO SCH (08:17)
[2017-08-08] MEDS: PIPERACILLIN-TAZOBACTAM 3.375 GM in DEXTROSE/WATER 1 50ML.BAG IVPB SCH (08:17)
[2017-08-08] MEDS: ASPIRIN 81 MG PO SCH (08:17)
--- NOTE | 2017-08-08 11:43 | P.PN ---
Subjective Progress Note Date: 08/08/17 Principal diagnosis: Acute exacerbation of bronchiectasis. This is a very pleasant 77-year-old gentleman who was admitted on 08/05/2017 for an acute exacerbation of his bronchiectasis and COPD. He follows with Dr. Vela in our office for the same. He is maintained on ciprofloxacin 500 mg twice a day for the first 10 days of each month. He also will take oral prednisone when needed. Presently he is sitting up in a chair at the bedside. He is awake and alert in no acute distress. He states he is breathing easier today as compared to yesterday. He is maintaining O2 saturations in the low 90s on room air. He's been afebrile. No tachycardia. No tachypnea. Blood pressure stable. Blood culture reveals no growth to date. The patient is seen again today 08/08/2017 in follow-up on the selective care unit. He is currently sitting up in a chair at the bedside. He is awake and alert in no acute distress. He is nearly back to his baseline. He denies any worsening shortness of breath. He has a continued loose nonproductive cough. No chills or night sweats. Blood culture reveals no growth. No leukocytosis. He is afebrile. No tachycardia. No tachypnea. Maintaining O2 saturations in the 90s on room air. Objective - Vital Signs Vital signs: Vital Signs Temp 97.6 F 08/08/17 07:50 Pulse 78 08/08/17 08:30 Resp 18 08/08/17 08:00 BP 137/75 08/08/17 07:50 Pulse Ox 92 L 08/08/17 07:50 Intake & Output 08/07/17 08/08/17 08/08/17 18:59 06:59 18:59 Intake Total 1080 190 240 Output Total 2600 1000 Balance -1520 190 -760 Weight 77.5 kg Intake: IV 190 0.9 140 Piperacillin-Tazobactam 3 50 .375 gm In Dextrose/Water 1 50ml.bag @ 12.5 mls/hr IVPB Q8HR [facility] Rx#: [id number] Oral 1080 240 Output: Urine 2600 1000 Other: Voiding Method Urinal Urinal Urinal - Exam GENERAL EXAM: Alert, active, comfortable in no apparent distress. HEAD: Normocephalic. EYES: Normal reaction of pupils, equal size. NOSE: Clear with pink turbinates. THROAT: No erythema or exudates. NECK: No masses, no JVD. CHEST: No chest wall deformity. LUNGS: Equal air entry with coarse crackles in the bilateral posterior bases, right greater than left. CVS: S1 and S2 normal with no audible murmur, regular rhythm. ABDOMEN: No hepatosplenomegaly, normal bowel sounds, no guarding or rigidity. SPINE: No scoliosis or deformity SKIN: No rashes CENTRAL NERVOUS SYSTEM: No focal deficits, tone is normal in all 4 extremities. EXTREMITIES: There is no peripheral edema. No clubbing, no cyanosis. Peripheral pulses are intact. - Labs CBC & Chem 7: 08/08/17 06:00 08/08/17 06:00 Labs: Abnormal Lab Results - Last 24 Hours (Table) 08/07/17 08/07/17 08/08/17 Range/Units 16:24 20:51 06:00 Hgb 12.8 L (13.0-17.5) gm/dL Lymphocytes # 0.6 L (1.0-4.8) k/uL Creatinine (0.66-1.25) mg/dL Glucose (74-99) mg/dL POC Glucose (mg/dL) 144 H 193 H (75-99) mg/dL 08/08/17 08/08/17 Range/Units 06:00 06:14 Hgb (13.0-17.5) gm/dL Lymphocytes # (1.0-4.8) k/uL Creatinine 0.60 L (0.66-1.25) mg/dL Glucose 144 H (74-99) mg/dL POC Glucose (mg/dL) 136 H (75-99) mg/dL Microbiology - Last 24 Hours (Table) 08/05/17 17:05 Blood Culture - Preliminary Blood No Growth after 48 hours Assessment and Plan Assessment: Impression: #1 Acute exacerbation of bronchiectasis. #2 Acute hypoxic respiratory failure secondary to above. Recovered. #3 History of bronchiectasis treated with ciprofloxacin 500 mg twice a day the first 10 days of each month. Mucinex and prednisone as needed. #4 History of multiple stable pulmonary nodules in follow-up in the outpatient setting. 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 #5 Hypothyroidism with previous thyroidectomy. Plan: The patient was seen and evaluated by Dr. Padilla. He is cleared for discharge from the pulmonary standpoint. He'll complete a prednisone taper. Complete his course of antibiotics. Follow-up with Dr. Vela closely in our office. He is encouraged however to call sooner with any recurrence of symptoms or other questions or concerns. I, the cosigning physician, performed a history & physical examination of the patient. Lungs sounds have coarse crackles in the bilateral posterior bases. Maintaining good O2 saturations in the 90s on room air. I discussed the assessment and plan of care with my nurse practitioner, Sheree Boyd. I attest to the above note as dictated by her.
[2017-08-08 11:45] LABS: Glucose,Whole Blood 152 mg/dL (75-99)
[2017-08-08 11:59] VITALS: BP 143/77; RESP 16; TEMP 97.2
[2017-08-08 12:30] VITALS: PULSE 80
--- NOTE | 2017-08-08 23:05 | DS ---
DISCHARGE SUMMARY DATE OF ADMISSION: 08/05/2017. DATE OF DISCHARGE: 08/08/2017 FINAL DIAGNOSES: 1. Acute bilateral pneumonia; suspect Gram-negative organism, present on admission. 2. Acute chronic obstructive pulmonary disease exacerbation in an ex-smoker. 3. Acute on chronic bronchiectasis flareup. 4. Hypothyroidism with previous thyroidectomy. 5. Benign prostatic hypertrophy. 6. Patient is on chronic ciprofloxacin 500 mg twice a day for the first ten days of each month for the bronchiectasis. 7. Multiple stable pulmonary nodules, being followed as an outpatient. 8. Pleural calcification; may be secondary to asbestos-related disease. 9. Possible acute hypoxic respiratory failure, present on admission, per Pulmonary. HOSPITAL COURSE: This is a patient with known bronchiectasis who presented with cough, sputum production, not feeling well, tired. He was put on antibiotics, to which he responded well. The patient is on IV Zosyn. The patient's sputum production greatly improved by the time of discharge today with pulse ox 96% on room air. On examination, lungs have improved air entry, minimal crackles. He is up and about. Diet is greatly improved. Care was discussed with the patient. Discussion and discharge planning more than 35 minutes. Questions were answered. CONSULTATION: Dr. Padilla from Pulmonary. DISCHARGE MEDICATIONS: 1. Ventolin 2.5 t.i.d. p.r.n. 2. Aspirin 81 mg p.o. daily. 3. Cipro 500 mg p.o. q.12 to continue as before on the first ten days of the month. 4. Synthroid 100 mcg p.o. daily. 5. Prilosec 20 mg p.o. daily. 6. Hytrin 2 mg p.o. at bedtime. 7. Prednisone 10 mg p.r.n. 8. Tylenol 650 mg p.o. q.6 p.r.n. 9. Augmentin 875 one tablet p.o. q.12; 10 tablets. 10.DuoNeb t.i.d. 11.Mucinex 1200 mg p.o. q.12; 14 tablets. 12.Prednisone taper. FOLLOWUP: Follow up with Dr. Vela on 08/22/2017. Follow up with Dr. Perez on 08/20/2017. Discussion and discharge planning more than 35 minutes. MMODL / IJN: [id number] /
== END 2017-08-08 17:35 | disposition home or self-care (01) | DRG 871 ==
LOC: EC 16:47 → 6SEL 17:33
PROVIDERS: ADMIT Hospitalist; ATTEND Hospitalist
DX: A41.9 Sepsis, unspecified organism (principal); J15.6 Pneumonia due to other Gram-negative bacteria; J96.01 Acute respiratory failure with hypoxia; J47.1 Bronchiectasis with (acute) exacerbation; J47.0 Bronchiectasis with acute lower respiratory infection; N40.0 Benign prostatic hyperplasia without lower urinary tract symptoms; E89.0 Postprocedural hypothyroidism; Z77.090 Contact with and (suspected) exposure to asbestos; K21.9 Gastro-esophageal reflux disease without esophagitis; R91.8 Other nonspecific abnormal finding of lung field; R26.2 Difficulty in walking, not elsewhere classified; Z87.891 Personal history of nicotine dependence; Z79.899 Other long term (current) drug therapy; Z79.82 Long term (current) use of aspirin; Z79.52 Long term (current) use of systemic steroids; Z79.2 Long term (current) use of antibiotics; Z90.89 Acquired absence of other organs; Z87.01 Personal history of pneumonia (recurrent); Z79.4 Long term (current) use of insulin
CPT/HCPCS: 36415; 71046; 80048; 80053; 83036; 83605; 85025; 87040; 93005; 94640; 94667; 94760; 99285

== ENCOUNTER → 2017-08-22 | Outpatient (CLI) | payer MEDICARE, OTHER ==
[2017-08-22 11:12] LABS: Basophils # (A) 0.1 k/uL (0-0.2); Basophils % (A) 1 %; Eosinophils # (A) 0.2 k/uL (0-0.7); Eosinophils % (A) 2 %; HCT 41.4 % (39.0-53.0); HGB 13.1 gm/dL (13.0-17.5); Lymphocytes # (A) 1.5 k/uL (1.0-4.8); Lymphocytes % (A) 21 %; MCH 29.5 pg (25.0-35.0); MCHC 31.8 g/dL (31.0-37.0); MCV 92.9 fL (80.0-100.0); Mean Platelet Volume 7.1; Monocytes # (A) 0.4 k/uL (0-1.0); Monocytes % (A) 6 %; Neutrophils # (A) 4.7 k/uL (1.3-7.7); Neutrophils % (A) 68 %; Platelet Count 308 k/uL (150-450); RBC 4.45 m/uL (4.30-5.90); RDW 14.5 % (11.5-15.5); WBC 6.9 k/uL (3.8-10.6)
[2017-08-22 16:45] LABS: Immunoglobulin E 17.3 IU/mL (0.00-114.00)
[2017-08-23 11:02] LABS: IgG Subclass 3 90.8 mg/dL (11.0-85.0)
== END | disposition home or self-care (01) ==
LOC: LABWHC1 10:21
PROVIDERS: ATTEND Internal Medicine
DX: J47.9 Bronchiectasis, uncomplicated (principal)
CPT/HCPCS: 36415; 82784; 82785; 82787; 85025; 87070; 87077; 87186; 87205

== ENCOUNTER 2017-12-06 19:54 | Inpatient (IN) | payer MEDICARE, OTHER ==
[2017-12-06] MEDS ORDERED: SODIUM CHLORIDE 0.9% 1,000 ML IV STA (20:15)
[2017-12-06] MEDS ORDERED: IBUPROFEN 600 MG TAB PO STA (20:15)
[2017-12-06] MEDS ORDERED: ACETAMINOPHEN TAB 500 MG TAB PO STA (20:15)
[2017-12-06 20:54] LABS: Basophils % (A) 0 %; Eosinophils # (A) 0.1 k/uL (0-0.7); Eosinophils % (A) 1 %; HCT 45.4 % (39.0-53.0); HGB 15.2 gm/dL (13.0-17.5); Lymphocytes # (A) 0.7 k/uL (1.0-4.8); Lymphocytes % (A) 4 %; MCH 30.1 pg (25.0-35.0); MCHC 33.5 g/dL (31.0-37.0); MCV 89.7 fL (80.0-100.0); Mean Platelet Volume 6.7; Monocytes # (A) 0.4 k/uL (0-1.0); Monocytes % (A) 2 %; Neutrophils # (A) 14.1 k/uL (1.3-7.7); Neutrophils % (A) 92 %; Platelet Count 222 k/uL (150-450); RBC 5.06 m/uL (4.30-5.90); RDW 13.6 % (11.5-15.5); WBC 15.4 k/uL (3.8-10.6)
--- NOTE | 2017-12-06 20:56 | ED ---
General Adult HPI - General Chief complaint: Fever Stated complaint: Fever Time Seen by Provider: 12/06/17 20:03 Source: patient, EMS, RN notes reviewed, old records reviewed Mode of arrival: EMS Limitations: no limitations - History of Present Illness Initial comments: This is a 77-year-old male the ER for evaluation. They presents for evaluation of fever, fever with cough and congestion, mild shortness of breath. Patient sent from bronchiectasis. He has esophageal dilation earlier today. Patient had fever that developed this afternoon, continued fever currently. Patient continue to cough up sputum. No chest pain denies any abdominal pain no sore throat no dysuria diarrhea - Related Data Home Medications Medication Instructions Recorded Confirmed Albuterol Nebulized [Ventolin 2.5 mg INHALATION RT-TID PRN 11/15/16 12/06/17 Nebulized] Aspirin 81 mg PO DAILY 11/15/16 12/06/17 Levothyroxine Sodium [Synthroid] 100 mcg PO DAILY 11/15/16 12/06/17 Omeprazole [PriLOSEC] 20 mg PO DAILY 11/15/16 12/06/17 Terazosin [Hytrin] 2 mg PO HS 08/05/17 12/06/17 Budesonide-Formot 160-4.5 Mcg 2 puff INHALATION RT-BID PRN 12/06/17 12/06/17 [Symbicort 160-4.5 Mcg Inhaler] Ipratropium-Albuterol Nebulize 3 ml INHALATION RT-TID 12/06/17 12/06/17 [Duoneb 0.5 mg-3 mg/3 ml Soln] Previous Rx's Medication Instructions Recorded guaiFENesin [Mucinex] 1,200 mg PO Q12HR #14 tablet.er 08/08/17 Allergies Allergy/AdvReac Type Severity Reaction Status Date / Time No Known Allergies Allergy Verified 12/06/17 20:35 Review of Systems ROS Statement: Those systems with pertinent positive or pertinent negative responses have been documented in the HPI. ROS Other: All systems not noted in ROS Statement are negative. Past Medical History Past Medical History: Pneumonia, Thyroid Disorder Additional Past Medical History / Comment(s): Bronchiectasis, narrowing of esophagus, sepsis february History of Any Multi-Drug Resistant Organisms: None Reported Past Surgical History: Orthopedic Surgery, Tonsillectomy Additional Past Surgical History / Comment(s): thyroidectomy, right knee Past Psychological History: No Psychological Hx Reported Smoking Status: Former smoker Past Alcohol Use History: Occasional Past Drug Use History: None Reported General Exam Limitations: no limitations General appearance: alert, in no apparent distress Head exam: Present: atraumatic, normocephalic, normal inspection Eye exam: Present: normal appearance, PERRL, EOMI. Absent: scleral icterus, conjunctival injection, periorbital swelling ENT exam: Present: normal exam, mucous membranes moist Neck exam: Present: normal inspection. Absent: tenderness, meningismus, lymphadenopathy Respiratory exam: Present: wheezes, decreased breath sounds, prolonged expiratory. Absent: respiratory distress, rales, rhonchi, stridor Cardiovascular Exam: Present: normal rhythm, tachycardia, normal heart sounds. Absent: systolic murmur, diastolic murmur, rubs, gallop, clicks GI/Abdominal exam: Present: soft, normal bowel sounds. Absent: distended, tenderness, guarding, rebound, rigid Extremities exam: Present: normal inspection, full ROM, normal capillary refill. Absent: tenderness, pedal edema, joint swelling, calf tenderness Back exam: Present: normal inspection Neurological exam: Present: alert, oriented X3, CN II-XII intact Psychiatric exam: Present: normal affect, normal mood Skin exam: Present: warm, dry, intact, normal color. Absent: rash Course Vital Signs 12/06/17 12/06/17 12/06/17 20:00 21:54 22:05 Temperature 104 F H Pulse Rate 118 H 103 H 104 H Respiratory 20 Rate Blood Pressure 155/74 O2 Sat by Pulse 89 L Oximetry 12/06/17 22:36 Temperature Pulse Rate 100 Respiratory 18 Rate Blood Pressure 118/63 O2 Sat by Pulse 95 Oximetry - Reevaluation(s) Reevaluation #1: 12/06/17 23:15 Patient is swelling, does feel better with fever control Medical Decision Making - Medical Decision Making 77 male the ER for evaluation. Patient has positive fever history of bronchiectasis with esophageal dilation today. Patient be admitted for IV antibiotics to control fever and prevent infection. Patient will be admitted for further evaluation and treatment, cultures - Lab Data Result diagrams: 12/06/17 20:39 12/06/17 20:39 Lab Results 12/06/17 12/06/17 12/06/17 Range/Units 20:39 20:39 20:39 WBC 15.4 H (3.8-10.6) k/uL RBC 5.06 (4.30-5.90) m/uL Hgb 15.2 (13.0-17.5) gm/dL Hct 45.4 (39.0-53.0) % MCV 89.7 (80.0-100.0) fL MCH 30.1 (25.0-35.0) pg MCHC 33.5 (31.0-37.0) g/dL RDW 13.6 (11.5-15.5) % Plt Count 222 (150-450) k/uL Neutrophils % 92 % Lymphocytes % 4 % Monocytes % 2 % Eosinophils % 1 % Basophils % 0 % Neutrophils # 14.1 H (1.3-7.7) k/uL Lymphocytes # 0.7 L (1.0-4.8) k/uL Monocytes # 0.4 (0-1.0) k/uL Eosinophils # 0.1 (0-0.7) k/uL Basophils # 0.0 (0-0.2) k/uL Sodium 138 (137-145) mmol/L Potassium 4.3 (3.5-5.1) mmol/L Chloride 102 (98-107) mmol/L Carbon Dioxide 23 (22-30) mmol/L Anion Gap 13 mmol/L BUN 17 (9-20) mg/dL Creatinine 0.60 L (0.66-1.25) mg/dL Est GFR (CKD-EPI)AfAm >90 (>60 ml/min/1.73 sqM) Est GFR (CKD-EPI)NonAf >90 (>60 ml/min/1.73 sqM) Glucose 83 (74-99) mg/dL Plasma Lactic Acid [place] (0.7-2.0) mmol/L Calcium 9.4 (8.4-10.2) mg/dL Total Bilirubin 1.1 (0.2-1.3) mg/dL AST 44 (17-59) U/L ALT 22 (21-72) U/L Alkaline Phosphatase 75 (38-126) U/L Total Protein 7.8 (6.3-8.2) g/dL Albumin 4.4 (3.5-5.0) g/dL Urine Color Urine Appearance (Clear) Urine pH (5.0-8.0) Ur Specific [place] (1.001-1.035) Urine Protein (Negative) Urine Glucose (UA) (Negative) Urine Ketones (Negative) Urine Blood (Negative) Urine Nitrite (Negative) Urine Bilirubin (Negative) Urine Urobilinogen (<2.0) mg/dL Ur Leukocyte Esterase (Negative) Urine RBC (0-5) /hpf Urine WBC (0-5) /hpf Urine Bacteria (None) /hpf Influenza Type A RNA Not Detected (Not Detectd) Influenza Type B (PCR) Not Detected (Not Detectd) 12/06/17 12/06/17 Range/Units 20:39 20:43 WBC (3.8-10.6) k/uL RBC (4.30-5.90) m/uL Hgb (13.0-17.5) gm/dL Hct (39.0-53.0) % MCV (80.0-100.0) fL MCH (25.0-35.0) pg MCHC (31.0-37.0) g/dL RDW (11.5-15.5) % Plt Count (150-450) k/uL Neutrophils % % Lymphocytes % % Monocytes % % Eosinophils % % Basophils % % Neutrophils # (1.3-7.7) k/uL Lymphocytes # (1.0-4.8) k/uL Monocytes # (0-1.0) k/uL Eosinophils # (0-0.7) k/uL Basophils # (0-0.2) k/uL Sodium (137-145) mmol/L Potassium (3.5-5.1) mmol/L Chloride (98-107) mmol/L Carbon Dioxide (22-30) mmol/L Anion Gap mmol/L BUN (9-20) mg/dL Creatinine (0.66-1.25) mg/dL Est GFR (CKD-EPI)AfAm (>60 ml/min/1.73 sqM) Est GFR (CKD-EPI)NonAf (>60 ml/min/1.73 sqM) Glucose (74-99) mg/dL Plasma Lactic Acid [place] 1.3 (0.7-2.0) mmol/L Calcium (8.4-10.2) mg/dL Total Bilirubin (0.2-1.3) mg/dL AST (17-59) U/L ALT (21-72) U/L Alkaline Phosphatase (38-126) U/L Total Protein (6.3-8.2) g/dL Albumin (3.5-5.0) g/dL Urine Color Light Yellow Urine Appearance Clear (Clear) Urine pH 7.5 (5.0-8.0) Ur Specific [place] 1.010 (1.001-1.035) Urine Protein Negative (Negative) Urine Glucose (UA) Negative (Negative) Urine Ketones 1+ H (Negative) Urine Blood Negative (Negative) Urine Nitrite Negative (Negative) Urine Bilirubin Negative (Negative) Urine Urobilinogen <2.0 (<2.0) mg/dL Ur Leukocyte Esterase Small H (Negative) Urine RBC 3 (0-5) /hpf Urine WBC 5 (0-5) /hpf Urine Bacteria Rare H (None) /hpf Influenza Type A RNA (Not Detectd) Influenza Type B (PCR) (Not Detectd) - Radiology Data Radiology results: report reviewed (Chest x-ray CT chest negative for acute disease), image reviewed Disposition Clinical Impression: Fever, Postoperative fever Disposition: ADMITTED IP TO THIS HOSP Condition: Fair Is patient prescribed a controlled substance at d/c from ED?: No Referrals: Gildardo Perez MD [Primary Care Provider] - 1-2 days
[2017-12-06 21:06] LABS: Appearance,Urine Clear (Clear); Bacteria,Urine Rare /hpf; Bilirubin,Urine Negative (Negative); Blood,Urine Negative (Negative); Color,Urine Light Yellow; Glucose,Urine (UA) Negative (Negative); Ketones,Urine 1+ (Negative); Leukocyte Esterase,Urine Small (Negative); Nitrite,Urine Negative (Negative); PH, Urine 7.5 (5.0-8.0); Protein,Urine Negative (Negative); RBC,Urine 3 /hpf (0-5); Urobilinogen,Urine <2.0 mg/dL (<2.0); WBC,Urine 5 /hpf (0-5)
[2017-12-06 21:07] LABS: ALT 22 U/L (21-72); AST 44 U/L (17-59); Albumin 4.4 g/dL (3.5-5.0); Alkaline Phosphatase 75 U/L (38-126); Anion Gap 13 mmol/L; Blood Urea Nitrogen 17 mg/dL (9-20); Calcium 9.4 mg/dL (8.4-10.2); Carbon Dioxide 23 mmol/L (22-30); Chloride 102 mmol/L (98-107); Glucose 83 mg/dL (74-99); Potassium 4.3 mmol/L (3.5-5.1); Sodium 138 mmol/L (137-145); Total Bilirubin 1.1 mg/dL (0.2-1.3); Total Protein 7.8 g/dL (6.3-8.2)
--- NOTE | 2017-12-06 21:19 | XR ---
EXAMINATION TYPE: XR chest 2V DATE OF EXAM: 12/06/2017 COMPARISON: 08/06/2017 HISTORY: Chest pain fever and chills TECHNIQUE: Frontal and lateral views of the chest are obtained. FINDINGS: There is coarse interstitial density throughout the lungs with coalescent patchy infiltrat e and atelectasis at the lung bases. Thoracic aorta is atheromatous. Heart size is normal. Pulmonary vascularity is difficult to evaluate because of the lung disease. There are chest leads. IMPRESSION: Extensive pulmonary fibrosis. There is improved aeration of the right lung base compared to last exam. No new pulmonary infiltrate. No heart failure seen.
[2017-12-06] MEDS ORDERED: IPRATROPIUM-ALBUTEROL 3 ML NEB INHALATION STA (21:27)
[2017-12-06] MEDS ORDERED: RX INFO: IV CONTRAST WAS GIVEN 1 EACH MISC MISCELLANE PRN (21:45)
[2017-12-06] MEDS ORDERED: cefTRIAXone 2,000 MG in SODIUM CHLORIDE 0.9% 100 ML IVPB STA (21:45)
[2017-12-06] MEDS ORDERED: cefTRIAXone IN SWFI 2,000 MG/20 ML SYRINGE IVP STA (21:46)
--- NOTE | 2017-12-06 22:42 | CT ---
EXAMINATION TYPE: CT chest w con DATE OF EXAM: 12/06/2017 COMPARISON: 03/06/2017 HISTORY: Patient had esophageal dilatation today. When he got home, started having fever and chills. CT DLP: 378.2 mGycm Automated exposure control for dose reduction was used. CONTRAST: CT scan of the chest is performed with IV Contrast, patient injected with 100 mL of Isovue 300. FINDINGS: There is extensive patchy infiltrate at the lung bases. There is extensive bronchiectasis in the lowe r lobes. There are multiple fluid levels in the dilated bronchi. There is bullous emphysema in the le ft lower lobe. There is patchy nodular infiltrate in the remainder of the lung [place]. Thoracic aorta is atheromatous. There is no mediastinal air identified. There is no sign of an esophageal mass. I s ee no mediastinal adenopathy. There are paratracheal lymph nodes measure less than 1 cm. There is no pericardial effusion. There is no pleural effusion. There is spurring in the thoracic spine. IMPRESSION: Extensive pulmonary infiltrates and cystic bronchiectasis. Pulmonary emphysema. No evide nce of mediastinal emphysema. There is overall no adverse change compared to old CT scan. There is cl earing of the right-sided pneumothorax compared to old exam.
[2017-12-06] MEDS ORDERED: SODIUM CHLORIDE 0.9% 1,000 ML IV ONE (23:13)
[2017-12-06] MEDS ORDERED: ACETAMINOPHEN TAB 325 MG TAB PO PRN (23:14)
[2017-12-07] MEDS ORDERED: IPRATROPIUM-ALBUTEROL 3 ML NEB INHALATION SCH
[2017-12-07] MEDS ORDERED: IPRATROPIUM-ALBUTEROL 3 ML NEB INHALATION PRN (00:29)
[2017-12-07 00:30] VITALS: BMI 24.6
[2017-12-07 06:29] VITALS: BP 104/61; RESP 20; TEMP 96.9
[2017-12-07] MEDS: IPRATROPIUM-ALBUTEROL 3 ML NEB INHALATION SCH ×3 (07:19→15:31)
[2017-12-07] MEDS ORDERED: SYMBICORT 160-4.5 MCG INHALER INHALATION SCH (10:00)
[2017-12-07] MEDS ORDERED: PANTOPRAZOLE 40 MG TABLET PO SCH (10:00)
[2017-12-07] MEDS ORDERED: guaiFENesin 600 MG TABLET.ER PO SCH (10:00)
[2017-12-07] MEDS ORDERED: ASPIRIN 81 MG PO SCH (10:00)
[2017-12-07] MEDS ORDERED: LEVOTHYROXINE 100 MCG TAB PO SCH (10:00)
--- NOTE | 2017-12-07 10:36 | P.CONS ---
History of Present Illness - Reason for Consult Consult date: 12/07/17 Status post esophageal dilation Requesting physician: Fabien Acharya - History of Present Illness 77-year-old gentleman with a history of esophageal stricture status post dilation and [place] yesterday. He has an underlying history of bronchiectasis status post multiple bronchoscopies. Patient was discharged yesterday in satisfactory condition but later developed chills high fever T-max 104. He presented to the emergency room for further evaluation. Presently he denies abdominal pain dysphagia odynophagia chest pain shortness of breath hematemesis hematochezia or melena. CT chest extensive pulmonary infiltrates and cystic bronchiectasis. Pulmonary emphysema. No evidence of mediastinal emphysema. No evidence of pneumomediastinum. No sign of esophageal mass. Review of Systems Constitutional: That it with fever, chills, denies sweats, weight gain, or loss. HEENT: Negative for migraines, blurred vision or loss, earaches, drainage, tinnitus, oral mucosal lesions, dysphagia, or odynophagia. Cardiac: Negative for chest pain, arrhythmias, or palpitation. Respiratory: Negative for shortness of breath, hemoptysis, cough, or sputum production. Gastrointestinal: See HPI for pertinent findings. Genitourinary: Negative for hematuria, urgency, frequency, polyuria, dysuria, or penile discharge. Musculoskeletal: Negative for muscle aches, swelling, arthritis, and arthralgias. Neurologic: Negative for stroke or TIA. Endocrine: Negative for thyroid problems. Skin: Negative for rash or itching. Psychiatric: Negative history for depression and anxiety Past Medical History Past Medical History: Pneumonia, Thyroid Disorder Additional Past Medical History / Comment(s): Bronchiectasis, narrowing of esophagus, sepsis february History of Any Multi-Drug Resistant Organisms: None Reported Past Surgical History: Orthopedic Surgery, Tonsillectomy Additional Past Surgical History / Comment(s): thyroidectomy, right knee Past Psychological History: No Psychological Hx Reported Smoking Status: Former smoker Past Alcohol Use History: Occasional Past Drug Use History: None Reported Medications and Allergies Home Medications Medication Instructions Recorded Confirmed Type Albuterol Nebulized [Ventolin 2.5 mg INHALATION RT-TID PRN 11/15/16 12/06/17 History Nebulized] Aspirin 81 mg PO DAILY 11/15/16 12/06/17 History Levothyroxine Sodium [Synthroid] 100 mcg PO DAILY 11/15/16 12/06/17 History Omeprazole [PriLOSEC] 20 mg PO DAILY 11/15/16 12/06/17 History Terazosin [Hytrin] 2 mg PO HS 08/05/17 12/06/17 History guaiFENesin [Mucinex] 1,200 mg PO Q12HR #14 tablet.er 08/08/17 12/06/17 Rx Budesonide-Formot 160-4.5 Mcg 2 puff INHALATION RT-BID PRN 12/06/17 12/06/17 History [Symbicort 160-4.5 Mcg Inhaler] Ipratropium-Albuterol Nebulize 3 ml INHALATION RT-TID 12/06/17 12/06/17 History [Duoneb 0.5 mg-3 mg/3 ml Soln] Allergies Allergy/AdvReac Type Severity Reaction Status Date / Time No Known Allergies Allergy Verified 12/06/17 20:35 Physical Exam Vitals: Vital Signs Temp Pulse Pulse Resp BP BP Pulse Ox 12/07/17 07:31 80 12/07/17 07:22 76 94 L 12/07/17 06:05 96.9 F L 70 20 104/61 96 12/07/17 00:30 97.6 F 93 20 107/63 95 12/06/17 23:58 100.6 F H 86 16 120/68 98 12/06/17 23:56 98.5 F 93 16 118/78 98 12/06/17 22:36 100 18 118/63 95 12/06/17 22:05 104 H 12/06/17 21:54 103 H 12/06/17 20:00 104 F H 118 H 20 155/74 89 L Intake and Output 12/06/17 12/07/17 12/07/17 22:59 06:59 14:59 Other: Voiding Method Toilet # Voids 2 Weight 78.925 kg 78 kg General appearance: The patient is alert, oriented, in no acute distress. HET: Head is normocephalic and atraumatic. Pupils are equal and reactive. Oropharynx is clear without lesions. Neck: Supple without lymphadenopathy. Trachea midline. Heart: S1 S2. Regular rate and rhythm. Lungs: No crackles or wheezes are heard. Bilateral diminishment in bases Abdomen: Soft, nontender, nondistended with bowel sounds. No peritoneal signs. No palpable organomegaly or masses. Extremities: Normal skin color and turgor. No cyanosis, rash, ulceration, clubbing, or edema. Radial and pedal pulses are 2/4 bilaterally. Neurological: No focal deficits. Strength and sensation are grossly intact. Results CBC & Chem 7: 12/06/17 20:39 12/06/17 20:39 Labs: Abnormal Lab Results - Last 24 Hours (Table) 12/06/17 12/06/17 12/06/17 Range/Units 20:39 20:39 20:43 WBC 15.4 H (3.8-10.6) k/uL Neutrophils # 14.1 H (1.3-7.7) k/uL Lymphocytes # 0.7 L (1.0-4.8) k/uL Creatinine 0.60 L (0.66-1.25) mg/dL Urine Ketones 1+ H (Negative) Ur Leukocyte Esterase Small H (Negative) Urine Bacteria Rare H (None) /hpf Microbiology - Last 24 Hours (Table) 12/06/17 20:43 Urine Culture - Preliminary Urine,Voided CT scan - chest: report reviewed (Dr. Pino) Assessment and Plan (1) Fever Current Visit: Yes Status: Acute Code(s): R50.9 - FEVER, UNSPECIFIED SNOMED Code(s): 614291115 (2) Status post dilatation of esophageal stricture Current Visit: Yes Status: Chronic Code(s): Z98.890 - OTHER SPECIFIED POSTPROCEDURAL STATES; Z87.19 - PERSONAL HISTORY OF OTHER DISEASES OF THE DIGESTIVE SYSTEM SNOMED Code(s): 332813836 (3) Bronchiectasis Current Visit: Yes Status: Chronic Code(s): J47.9 - BRONCHIECTASIS, UNCOMPLICATED SNOMED Code(s): 54998876 Plan: Presently he is comfortable denying chest pain shortness of breath odynophagia or dysphagia. He's requesting discharge. Tolerating regular diet. CT reported no evidence of pneumomediastinum. From a GI standpoint continue with GI prophylaxis diet as tolerated. We'll continue to follow with you. Thank you for this kind referral and the opportunity to participate in the care of your patient. This consultation was discussed with Dr. Pino. The impression and plan of care have been directed as dictated.
--- NOTE | 2017-12-07 11:12 | P.CNPUL ---
History of Present Illness Consult date: 12/07/17 Requesting physician: Fabien Acharya Reason for consult: dyspnea, abnormal CXR/CT Chief complaint: Shortness of breath, cough, congestion History of present illness: This is a very pleasant 77-year-old gentleman who follows with Dr. Perez as his primary care physician. He has a history of hypothyroidism secondary to thyroidectomy, gastroesophageal reflux disease. He also has a history of bronchiectasis and pulmonary fibrosis and follows in our office for the same. He has been taken Cipro 500 mg twice a day for the first 10 days of every month. He was last seen by Dr. Vela in October and was doing quite well at that time and his Cipro was changed to every other month. He also continues on Mucinex. He has a vest as well to help loosen secretions when needed. He also has a history of esophageal stricture and had undergone EGD with dilation at [facility] yesterday. He was doing well at discharge liter last evening he developed a high temperature of 104 with chills and presented to the emergency room for the same. CT scan of the chest did reveal extensive pulmonary infiltrates and cystic bronchiectasis. There is evidence of emphysema. No mediastinal emphysema. No pneumothorax. There were however no new changes compared to previous CAT scan from 2017. He is seen today in consultation on the regular medical floor. He is awake and alert in no acute distress. He is maintaining O2 saturations in the mid 90s on room air. He is currently afebrile. Hemodynamically stable.. Feeling quite well. His knee shortness of breath, cough or congestion. No chills. No dysphagia. White count 15.4. Hemoglobin 15.2. Creatinine 0.60. Influenza screen was negative. Review of Systems Constitutional: Reports fever Eyes: denies blurred vision, denies decreased vision Ears: deny: decreased hearing Ears, nose, mouth and throat: Denies headache, Denies sore throat Cardiovascular: Denies chest pain, Denies shortness of breath Respiratory: Reports cough Gastrointestinal: Denies abdominal pain, Denies diarrhea, Denies nausea, Denies vomiting Genitourinary: Reports as per HPI Musculoskeletal: Denies myalgias Integumentary: Denies pruritus, Denies rash Neurological: Denies numbness, Denies weakness Psychiatric: Denies anxiety, Denies depression Endocrine: Denies fatigue, Denies weight change Hematologic/Lymphatic: Reports as per HPI Allergic/Immunologic: Reports as per HPI Past Medical History Past Medical History: GERD/Reflux, Pneumonia, Thyroid Disorder Additional Past Medical History / Comment(s): Bronchiectasis, fibrosis, narrowing of esophagus status post EGD with dilation, sepsis secondary to pneumonia 07/2017 History of Any Multi-Drug Resistant Organisms: None Reported Past Surgical History: Orthopedic Surgery, Tonsillectomy Additional Past Surgical History / Comment(s): thyroidectomy, right knee Past Psychological History: No Psychological Hx Reported Smoking Status: Former smoker Past Alcohol Use History: Occasional Past Drug Use History: None Reported Medications and Allergies Home Medications Medication Instructions Recorded Confirmed Type Albuterol Nebulized [Ventolin 2.5 mg INHALATION RT-TID PRN 11/15/16 12/06/17 History Nebulized] Aspirin 81 mg PO DAILY 11/15/16 12/06/17 History Levothyroxine Sodium [Synthroid] 100 mcg PO DAILY 11/15/16 12/06/17 History Omeprazole [PriLOSEC] 20 mg PO DAILY 11/15/16 12/06/17 History Terazosin [Hytrin] 2 mg PO HS 08/05/17 12/06/17 History guaiFENesin [Mucinex] 1,200 mg PO Q12HR #14 tablet.er 08/08/17 12/06/17 Rx Budesonide-Formot 160-4.5 Mcg 2 puff INHALATION RT-BID PRN 12/06/17 12/06/17 History [Symbicort 160-4.5 Mcg Inhaler] Ipratropium-Albuterol Nebulize 3 ml INHALATION RT-TID 12/06/17 12/06/17 History [Duoneb 0.5 mg-3 mg/3 ml Soln] Allergies Allergy/AdvReac Type Severity Reaction Status Date / Time No Known Allergies Allergy Verified 12/06/17 20:35 Physical Exam Vitals: Vital Signs Temp Pulse Pulse Resp BP BP Pulse Ox 12/07/17 07:31 80 12/07/17 07:22 76 94 L 12/07/17 06:05 96.9 F L 70 20 104/61 96 12/07/17 00:30 97.6 F 93 20 107/63 95 12/06/17 23:58 100.6 F H 86 16 120/68 98 12/06/17 23:56 98.5 F 93 16 118/78 98 12/06/17 22:36 100 18 118/63 95 12/06/17 22:05 104 H 12/06/17 21:54 103 H 12/06/17 20:00 104 F H 118 H 20 155/74 89 L Intake and Output 12/06/17 12/07/17 12/07/17 22:59 06:59 14:59 Other: Voiding Method Toilet # Voids 2 Weight 78.925 kg 78 kg - Constitutional General appearance: average body habitus - EENT Eyes: EOMI, PERRLA ENT: hearing grossly normal Ears: bilateral: normal - Neck Neck: normal ROM Carotids: bilateral: upstroke normal - Respiratory Respiratory: bilateral: rhonchi - Cardiovascular Rhythm: regular Heart sounds: normal: S1, S2 - Gastrointestinal General gastrointestinal: no organomegaly, soft, no tenderness - Integumentary Integumentary: normal turgor - Neurologic Neurologic: CNII-XII intact - Musculoskeletal Musculoskeletal: gait normal - Psychiatric Psychiatric: A&O x's 3, appropriate affect, intact judgment & insight Results - Laboratory Findings CBC and BMP: 12/06/17 20:39 12/06/17 20:39 Abnormal lab findings: Abnormal Labs 12/06/17 12/06/17 12/06/17 20:39 20:39 20:43 WBC 15.4 H Neutrophils # 14.1 H Lymphocytes # 0.7 L Creatinine 0.60 L Urine Ketones 1+ H Ur Leukocyte Esterase Small H Urine Bacteria Rare H - Diagnostic Findings Chest x-ray: image reviewed CT scan - chest: image reviewed Assessment and Plan Assessment: Impression: #1 Febrile illness suspect secondary to aspiration of gastric contents during EGD/dilatation. No clear evidence of pneumonia. Recovered. #2 Dysphagia with esophageal stricture status post EGD dilatation on 12/06/2017 in [facility]. #3 History of bronchiectasis maintained on Cipro the first 10 days of the month. #4 History of pulmonary fibrosis. #5 Hypothyroidism secondary to thyroidectomy. #6 Gastroesophageal reflux disease. Plan: The patient was seen and evaluated by Dr. Padilla. Chest x-ray, CAT scans and labs were all reviewed. He does feel the patient may have aspirated during the procedure caused a reaction with fever. The patient is feeling quite back to his baseline. He could be discharged home on a course of antibiotics. He will follow up with Dr. Vela in our office in 1-2 weeks' time. We'll repeat a chest x-ray then. He is encouraged however to call sooner with any recurrence of symptoms or other questions or concerns. I, the cosigning physician, performed a history & physical examination of the patient. Lungs sounds have few scattered rhonchi. Maintaining good O2 saturations in the 90s on room air. I discussed the assessment and plan of care with my nurse practitioner, Sheree Boyd. I attest to the above note as dictated by her. Time with Patient: Greater than 30
[2017-12-07 11:24] VITALS: PULSE 86
--- NOTE | 2017-12-07 17:43 | HP ---
HISTORY AND PHYSICAL HISTORY AND PHYSICAL AND DISCHARGE SUMMARY: DATE OF ADMISSION: 12/06/2017 DATE OF DISCHARGE: 12/07/2017 PRESENTING COMPLAINT: Cough. HISTORY OF PRESENTING COMPLAINT: This is a very pleasant 77-year-old patient who follows with Dr. Perez. Patient also follows with Dr. Vela from Pulmonary. Patient's chronic stable medical conditions include BPH, bronchiectasis, hypothyroid, for which patient is chronically on ciprofloxacin. 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 Patient yesterday underwent dilatation of the esophagus by Dr. Pino, went home, and developed what he describes as chills, fever, some cough, not able to bring up any sputum. Patient presented to the ER. Initially patient had a temperature recorded of 104 with a pulse of 118 and a pulse ox of 89%. Patient was admitted to the ER and given a dose of ceftriaxone, IV fluids, admitted for the same. Overnight the patient felt better; did not feel like eating, but felt like eating this morning. REVIEW OF SYSTEMS: CONSTITUTIONAL: Fever chills. HEENT: None. RESPIRATORY: Baseline cough. CARDIOVASCULAR: None. GASTROINTESTINAL: None. GENITOURINARY: None. MUSCULOSKELETAL: None. DERMATOLOGICAL: None. HEMATOLOGICAL: None. LYMPHATICS: None. PSYCHIATRY: None. NEUROLOGICAL: None. PAST MEDICAL HISTORY: 1. Pneumonia. 2. COPD. 3. Bronchiectasis. 4. Hypothyroidism. 5. BPH. 6. Pulmonary nodules. 7. 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 PAST SURGICAL HISTORY: 1. Orthopedic surgery. 2. Tonsillectomy. 3. Thyroidectomy. 4. Right knee surgery. SOCIAL HISTORY: Alcohol occasionally. Smoked for 20 years; stopped in 1992. 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 Lives with his . FAMILY HISTORY: Reviewed; noncontributory to presentation. HOME MEDICATIONS: 1. Synthroid 100 mcg p.o. daily. 2. Aspirin 81 mg p.o. daily. 3. Mucinex 1200 mg p.o. q.12. 4. Hytrin 2 mg p.o. at bedtime. 5. Prilosec 20 mg p.o. daily. 6. DuoNeb t.i.d. 7. Symbicort 2 puffs b.i.d. p.r.n. 8. Ventolin 2.5 t.i.d. p.r.n. ALLERGIES: NONE. PHYSICAL EXAMINATION: VITAL SIGNS ON PRESENTATION: Temperature 104, pulse 118, respiration 20, blood pressure 155/74, pulse ox 89% on room air. GENERAL APPEARANCE: Sitting on bed, slightly tired-appearing. EYES: Pupils equal. Conjunctivae normal. HEENT: External appearance of nose and ears normal. Oral cavity normal. NECK: JVD not raised. Mass not palpable. RESPIRATORY: Effort normal. LUNGS: Decreased breath sounds. Some mild crackles. CARDIOVASCULAR: First and second sounds normal. No edema. ABDOMEN: Soft, non-tender. Liver and spleen not palpable. LYMPHATIC: No lymph node palpable in neck or axillae. PSYCHIATRY: Alert and oriented x3. Mood and affect normal. NEUROLOGICAL: Pupils equal. Cranial nerves grossly intact. Power and sensation grossly intact. INVESTIGATIONS: White count 15.4, hemoglobin 15.2, potassium 4.3. CT scan of the chest shows extensive infiltrates and cystic bronchiectasis, emphysema. There was no change compared to the previous CT scan. ASSESSMENT: 1. Possible acute chemical pneumonitis in a patient who did undergo esophageal dilatation with a sepsis-like picture/sepsis, present on admission. 2. Chronic obstructive pulmonary disease in an ex-smoker. 3. Chronic bronchiectasis. 4. Hypothyroidism. 5. Benign prostatic hypertrophy. 6. Multiple stable pulmonary nodules. 7. Pleural calcification for asbestos-related disease. 8. Esophageal stricture, status post dilatation by Dr. Virginia Pino. PLAN: Patient did receive IV ceftriaxone. Home medications are resumed. Dr. Padilla saw the patient earlier this morning and later called me that patient can be discharged. I did discuss with her about his vital signs on presentation and a white count, but she said Dr. Padilla is rather comfortable with the clinical picture and patient can go home on a short course of antibiotics. I am adding Bactrim DS for 5 days. Patient is also very keen to go home, as he feels well. Follow up with Dr. Vela on 12/14/2017. Follow up with Dr. Perez on 12/12/2017. This is both a history and physical and discharge summary. MMODL / IJN: [id number] /
[2017-12-07] MEDS ORDERED: cefTRIAXone IN SWFI 1,000 MG/10 ML SYRINGE IVP SCH (21:00)
[2017-12-07] MEDS ORDERED: DOXAZOSIN 2 MG TAB PO SCH (21:00)
--- NOTE | 2017-12-18 09:35 | CDI ---
Last Revision, May 2017 Documentation Clarification Form Date: 12/18/2017 12:00:00 AM From: Karissa Hoskins Phone: If you have a question , please contact Guillermina Yoo, Ad Clerk at [phone] between 8am and 5pm. Admit Date: 12/06/2017 11:15:00 PM Patient Name: Brice Ahuja Visit Number: [id number] Discharge Date: 12/07/17 ATTENTION: The Clinical Documentation Specialists (CDI) and [facility] Coding Staff appreciate your assistance in clarifying documentation. Please respond to the clarification below the line at the bottom and electronically sign. The CDI & [facility] Coding staff will review the response and follow-up if needed. Please note: Queries are made part of the Legal Health Record. If you have any questions, please contact the author of this message via ITS. Dr. Fabien Acharya: H&P states "chemical pneumonitis in a patient who did undergo esophageal dilatation with a sepsis like picture/sepsis POA." Pulmonary Consult states -febrile reaction due to aspiration of gastric contents -no pneumonia History/Risk Factors: Previous esophageal dilatation, fever Clinical Indicators: CXR showing infiltrate WBC/Left Shift 15.4 Vitals signs on admission: 104F 118 bpm 20 155/74 89 in ER In your professional opinion, please clarify diagnoses after study: Sepsis ruled out Sepsis confirmed & Pneumonia ruled out Pneumonia, confirmed Other, please specify Unable to determine see addendum to dc summary MTDD
--- NOTE | 2018-01-05 21:41 | DS ---
DISCHARGE SUMMARY DATE OF ADMISSION: 12/06/2017 DATE OF DISCHARGE: 12/07/2017. ADDENDUM: FINAL DIAGNOSIS: Possible aspiration pneumonia and chemical pneumonitis causing sepsis, present on admission. MMODL / IJN: [id number] /
== END 2017-12-07 16:01 | disposition home or self-care (01) | DRG 871 ==
LOC: EC 19:54 → 4MS4W 23:15
PROVIDERS: ADMIT Hospitalist; ATTEND Hospitalist
DX: A41.9 Sepsis, unspecified organism (principal); J69.0 Pneumonitis due to inhalation of food and vomit; J95.4 Chemical pneumonitis due to anesthesia; E89.0 Postprocedural hypothyroidism; J43.9 Emphysema, unspecified; J47.9 Bronchiectasis, uncomplicated; Z87.891 Personal history of nicotine dependence; J84.10 Pulmonary fibrosis, unspecified; K21.9 Gastro-esophageal reflux disease without esophagitis; K22.2 Esophageal obstruction; N40.0 Benign prostatic hyperplasia without lower urinary tract symptoms; Z79.51 Long term (current) use of inhaled steroids; Z79.82 Long term (current) use of aspirin; Z79.899 Other long term (current) drug therapy; R91.8 Other nonspecific abnormal finding of lung field; J61 Pneumoconiosis due to asbestos and other mineral fibers; Z87.01 Personal history of pneumonia (recurrent); R13.10 Dysphagia, unspecified; Z79.890 Hormone replacement therapy
CPT/HCPCS: 36415; 71046; 71260; 80053; 81001; 83605; 85025; 87040; 87086; 87502; 94640; 94760; 96361; 96374; 99285

== ENCOUNTER → 2018-03-15 | Day surgery (SDC) | payer MEDICARE, OTHER ==
[2018-03-14 09:32] VITALS: BMI 23.5
[~2018-03-15] MED LIST: FAMOTIDINE 20 MG/2 ML VIAL IV ONE; GLYCOPYRROLATE 0.2 MG/ML 2 ML VIAL ONE; LACTATED RINGERS 1,000 ML IV SCH; LIDOCAINE 1% 20 ML VIAL (10MG/ML) FOR IV START INTRADERMA ONE; LIDOCAINE 2% SYG (PF) 100 MG/5 ML ONE; METOCLOPRAMIDE 5 MG/ML 2 ML VIAL IVP ONE; PROPOFOL 10 MG/ML 20 ML VIAL IV ONE
[2018-03-15 09:00] VITALS: RESP 16; TEMP 97.3
--- NOTE | 2018-03-15 10:08 | P.PCN ---
Date of Procedure: 03/15/18 Procedure(s) Performed: BRIEF HISTORY: Patient is a 77-year-old, pleasant, white male, scheduled for an upper endoscopy as a part of evaluation of progressive dysphagia to solids. He underwent an upper endoscopy with balloon dilation in December 2017 and was diagnosed with distal esophageal stricture. He still has persistent symptoms and hence scheduled for repeat upper endoscopy with balloon dilation PROCEDURE PERFORMED: Esophagogastroduodenoscopy with balloon dilation. PREOPERATIVE DIAGNOSIS: Progressive dysphagia to solids/history of esophageal stricture. IV sedation per anesthesia. PROCEDURE: After informed consent was obtained, the patient was brought into the endoscopy unit. IV sedation was administered by Anesthesia under continuous monitoring. Initially the Olympus GIF-140 video endoscope was inserted into the mouth. Esophagus intubated without any difficulty. It was gradually advanced into the esophagus where esophageal stricture where identified. I could not pass the scope to the stricture. Hence I proceeded with balloon dilation using 10-12 mm TTS balloon as sequential fashion for 90 seconds. Following this I was able to advance the scope into the stomach and duodenum and carefully examined. The bulb and the second part of the duodenum appeared normal. The scope at this time was withdrawn to the stomach, adequately insufflated with air , and upon careful examination, mucosa of the antrum, body, cardia and the fundus appeared normal. The scope was then withdrawn into the esophagus. Small sliding Hiatal hernia noted. The GE junction was located at 40 cm from the incisors. There was a mucosal tears noted the site of dilation with some oozing. The rest of the esophagus appeared normal. There were no erosions or ulcerations seen and the patient tolerated the procedure well. IMPRESSION: 1. Distal esophageal stricture status post balloon dilation with 10-12 mm TTS balloon as described above. 2. Small hiatal hernia. RECOMMENDATIONS: The findings of this examination were discussed with the patient as well as his family. He will be on clear liquid diet today and will be advanced as tolerated. He will remain on Prilosec 20 mg daily and follow antireflux measures. He'll be seen in the office in 3 months.
[2018-03-15 10:21] VITALS: BP 129/76; PULSE 81
== END ==
LOC: ORWHC2ENDO 08:43
PROVIDERS: ATTEND Internal Medicine Gastroenterology
DX: K22.2 Esophageal obstruction (principal); K44.9 Diaphragmatic hernia without obstruction or gangrene; I10 Essential (primary) hypertension; J44.9 Chronic obstructive pulmonary disease, unspecified; E07.9 Disorder of thyroid, unspecified; Z79.82 Long term (current) use of aspirin; Z79.890 Hormone replacement therapy; Z79.51 Long term (current) use of inhaled steroids; Z79.899 Other long term (current) drug therapy
CPT/HCPCS: 43249; J2765; J2001; J2704; C1726

== ENCOUNTER 2022-04-14 09:52 | Day surgery (SDC) | payer MEDICARE, OTHER ==
[2022-04-12 10:04] VITALS: BMI 21.5
[~2022-04-14 09:52] MED LIST changes: -FAMOTIDINE 20 MG/2 ML VIAL IV ONE; -GLYCOPYRROLATE 0.2 MG/ML 2 ML VIAL ONE; -LIDOCAINE 1% 20 ML VIAL (10MG/ML) FOR IV START INTRADERMA ONE; -LIDOCAINE 2% SYG (PF) 100 MG/5 ML ONE; -METOCLOPRAMIDE 5 MG/ML 2 ML VIAL IVP ONE; -PROPOFOL 10 MG/ML 20 ML VIAL IV ONE
[2022-04-14 10:54] VITALS: TEMP 96.8
[2022-04-14] MEDS ORDERED: LIDOCAINE 1% (10MG/ML) FOR IV START INTRADERMA ONE (11:00)
[2022-04-14] MEDS ORDERED: PROPOFOL 10 MG/ML 20 ML VIAL IV ONE (12:04)
[2022-04-14] MEDS ORDERED: LIDOCAINE 2% INJ 20 MG/ML (2 ML VIAL) ONE (12:04)
--- NOTE | 2022-04-14 12:18 | P.PCN ---
Date of Procedure: 04/14/22 Procedure(s) Performed: BRIEF HISTORY: Patient is a 81-year-old, pleasant, white male scheduled for an upper endoscopy as a part of evaluation of intermittent dysphagia to solids for the last 4 months duration. He has prior history of esophageal stricture for which she underwent an EGD with dilation in 2018. He does have long-standing history of GERD and has been maintained on omeprazole 20 mg daily for several years.. PROCEDURE PERFORMED: Esophagogastroduodenoscopy with biopsy and dilation. PREOPERATIVE DIAGNOSIS: Progressive dysphagia to solids and history of distal esophageal stricture. IV sedation per anesthesia. PROCEDURE: After informed consent was obtained, the patient was brought into the endoscopy unit. IV sedation was administered by Anesthesia under continuous monitoring. Initially the Olympus GIF-140 video endoscope was inserted into the mouth. Esophagus intubated without any difficulty. It was gradually advanced into the stomach and duodenum and carefully examined. The bulb and the second part of the duodenum appeared normal. The scope at this time was withdrawn to the stomach, adequately insufflated with air, and upon careful examination, mucosa of the antrum, body, cardia and the fundus appeared normal. The scope was then withdrawn into the esophagus. Small hiatal hernia noted. The GE junction was located at 39 cm from the incisors. There was a distal esophageal stricture identified that was dilated using 12-15 mm TTS balloon in a sequential fashion for 60 seconds. There was a small mucosal tear at the site of dilation. Biopsies were also done from the GE junction. The rest of the esophagus appeared normal. There were no erosions or ulcerations seen and the patient tolerated the procedure well. IMPRESSION: 1. Distal esophageal stricture status post balloon dilation using 12-15 mm TTS balloon as described above. 2. Small hiatal hernia.. RECOMMENDATIONS: The findings of this examination were discussed with the patient as well as his family. He was advised to be on a clear liquid diet for lunch today. Continue with omeprazole 20 mg daily and follow antrum reflux measures. Follow up in office in 3 months..
[2022-04-14 12:38] VITALS: BP 138/78; PULSE 84; RESP 20
== END 2022-04-14 13:00 ==
LOC: ORWHC2ENDO 09:52
PROVIDERS: ATTEND Internal Medicine Gastroenterology
DX: K22.2 Esophageal obstruction (principal); K44.9 Diaphragmatic hernia without obstruction or gangrene; R13.10 Dysphagia, unspecified; J84.10 Pulmonary fibrosis, unspecified; J47.9 Bronchiectasis, uncomplicated; E07.9 Disorder of thyroid, unspecified; K21.9 Gastro-esophageal reflux disease without esophagitis; Z79.890 Hormone replacement therapy; Z79.899 Other long term (current) drug therapy; Z90.89 Acquired absence of other organs
CPT/HCPCS: 88305; 43239; 43249; J2704; J2001; C1726

== ENCOUNTER 2023-03-06 10:16 | Emergency (ER) | payer OTHER, MEDICARE ==
[2023-03-06 10:25] VITALS: RESP 16
[2023-03-06 11:34] LABS: Basophils % (A) 0 %; Eosinophils # (A) 0.1 k/uL (0-0.7); Eosinophils % (A) 2 %; HCT 37.8 % (39.0-53.0); HGB 12.5 gm/dL (13.0-17.5); Lymphocytes # (A) 0.7 k/uL (1.0-4.8); Lymphocytes % (A) 8 %; MCH 30.7 pg (25.0-35.0); MCHC 33.1 g/dL (31.0-37.0); MCV 92.8 fL (80.0-100.0); Mean Platelet Volume 7.4; Monocytes # (A) 0.4 k/uL (0-1.0); Monocytes % (A) 5 %; Neutrophils # (A) 7.4 k/uL (1.3-7.7); Neutrophils % (A) 84 %; Platelet Count 264 k/uL (150-450); RBC 4.07 m/uL (4.30-5.90); RDW 13.4 % (11.5-15.5); WBC 8.8 k/uL (3.8-10.6)
[2023-03-06] MEDS ORDERED: methylPREDNISolone SOD SUCCI 125 MG/2 ML VIAL IV STA (11:49)
[2023-03-06] MEDS ORDERED: IPRATROPIUM-ALBUTEROL 3 ML NEB INHALATION STA (11:49)
[2023-03-06 12:12] LABS: ALT 14 U/L (4-49); AST 27 U/L (17-59); African American GFR (CKD) >90 (>60 ml/min/1.73 sqM); Albumin 3.9 g/dL (3.5-5.0); Alkaline Phosphatase 89 U/L (38-126); Anion Gap 10 mmol/L; Blood Urea Nitrogen 11 mg/dL (9-20); Calcium 9.4 mg/dL (8.4-10.2); Carbon Dioxide 27 mmol/L (22-30); Chloride 101 mmol/L (98-107); Glucose 84 mg/dL (74-99); Non-African American GFR(CKD) >90 (>60 ml/min/1.73 sqM); Potassium 4.4 mmol/L (3.5-5.1); Sodium 138 mmol/L (137-145); Total Bilirubin 0.9 mg/dL (0.2-1.3); Total Protein 8.3 g/dL (6.3-8.2)
--- NOTE | 2023-03-06 12:14 | ED ---
General Adult HPI - General Chief complaint: Shortness of Breath Stated complaint: SOB Time Seen by Provider: 03/06/23 10:32 Source: patient, RN notes reviewed, old records reviewed Mode of arrival: ambulatory Limitations: no limitations - History of Present Illness Initial comments: Patient is an 82-year-old male with past medical history remarkable for COPD, respiratory disease on vest therapy, hypertension, pneumonia who presents emergency Department complaining of relatively chronic symptoms but is not having productive cough which he normally gets and he wants to be evaluated so he doesn't develop a pneumonia. States he has been on doxycycline for the last 5-6 days and finished a course of steroids that is still coughing but no production. States it really he does have a productive cough in the past and this happens he eventually does have pneumonia and he wants to stay hydrated and try to avoid this. Denies any chest pain, current shortness of breath, abdominal pain, nausea, vomiting. States he was a former smoker. Not on oxygen at home. Typically runs between 93 and 95% where he is at right now. No fevers. No sick contacts. No other acute complaints. Presents for further evaluation at this time. Follows up with his aviation project engineer Dr. Baird next Sunday. - Related Data Home Medications Medication Instructions Recorded Confirmed Levothyroxine Sodium [Synthroid] 100 mcg PO QAM 11/15/16 04/12/22 Omeprazole [PriLOSEC] 20 mg PO QAM 11/15/16 04/12/22 Terazosin [Hytrin] 2 mg PO HS 08/05/17 04/12/22 Ipratropium-Albuterol Nebulize 3 ml INHALATION TID 12/06/17 04/12/22 [Duoneb 0.5 mg-3 mg/3 ml Soln] Mac Support (Lung Support Supp 1 dose PO DAILY 04/12/22 04/12/22 Previous Rx's Medication Instructions Recorded Levofloxacin [Levaquin] 750 mg PO DAILY 10 Days #10 tab 03/06/23 predniSONE [Deltasone] 40 mg PO DAILY 5 Days #10 tab 03/06/23 Allergies Allergy/AdvReac Type Severity Reaction Status Date / Time No Known Allergies Allergy Verified 03/06/23 10:21 Review of Systems ROS Statement: Those systems with pertinent positive or pertinent negative responses have been documented in the HPI. Review of Systems: CONST: Denies fever EYES: Denies blurry vision ENT: Denies nasal congestion C/V: Denies Chest pain RESP: Denies shortness of breath GI: Denies abdominal pain : Denies dysuria SKIN: Denies rash. MSK: Denies joint pain. NEURO: Denies headache ROS Other: All systems not noted in ROS Statement are negative. Past Medical History Past Medical History: GERD/Reflux, Hearing Disorder / Deafness, Hypertension, Pneumonia, Prostate Disorder, Respiratory Disorder, Thyroid Disorder Additional Past Medical History / Comment(s): Bronchiectasis, difficulty swallowing/narrowing of esophagus, hx sepsis secondary to Pneumonia 07/2017, bilateral hearing aid use. History of Any Multi-Drug Resistant Organisms: None Reported Past Surgical History: Orthopedic Surgery, Tonsillectomy Additional Past Surgical History / Comment(s): Thyroidectomy, right knee arthroscopy, EGD with dilation X2, bronchoscopy, colonoscopy, bilateral cataracts removed. Past Anesthesia/Blood Transfusion Reactions: No Reported Reaction Additional Past Anesthesia/Blood Transfusion Reaction / Comment(s): Aspirated food in lung after last EGD 11/2017. Past Psychological History: No Psychological Hx Reported Smoking Status: Former smoker Past Alcohol Use History: Occasional Past Drug Use History: None Reported - Past Family History Mother Family Medical History: No Reported History General Exam - General Exam Comments Initial Comments: General: Appears in no acute distress. HEAD: Normal with no signs of head trauma. EYES: PERRLA, EOMI, conjunctiva normal, no discharge. ENT: Hearing grossly intact, normal oropharynx. RESPIRATORY: Bilateral coarse breath sounds. Mild wheezing. No increased work of breathing. Baseline oxygen saturation 90-95% on room air. C/V: Regular rate and rhythm. S1 and S2 auscultated, no edema, peripheral pulses 2+ and intact throughout ABD: Abd is soft, nontender, nondistended EXT: Normal range of motion, no obvious deformity SKIN: No rashes or lesions observed on exposed skin. NEURO: Alert and oriented times. Limitations: no limitations Course Vital Signs 03/06/23 03/06/23 03/06/23 10:21 12:12 12:23 Temperature 97.1 F L Pulse Rate 102 H 74 76 Respiratory 16 Rate Blood Pressure 140/77 O2 Sat by Pulse 93 L Oximetry 03/06/23 03/06/23 03/06/23 12:49 12:50 13:00 Temperature Pulse Rate Respiratory Rate Blood Pressure 122/76 O2 Sat by Pulse 93 L 93 L 94 L Oximetry 03/06/23 03/06/23 03/06/23 13:10 13:20 13:30 Temperature Pulse Rate Respiratory Rate Blood Pressure 122/76 O2 Sat by Pulse 94 L 93 L 92 L Oximetry 03/06/23 03/06/23 13:40 13:55 Temperature 97.6 F Pulse Rate 103 H Respiratory 16 Rate Blood Pressure O2 Sat by Pulse 92 L 94 L Oximetry Medical Decision Making - Medical Decision Making Was pt. sent in by a medical professional or institution (, PA, ACCOUNTS RECEIVABLE SPECIALIST, urgent care, hospital, or [facility]...) When possible be specific @ -No Did you speak to anyone other than the patient for history (EMS, parent, family, police, friend...)? What history was obtained from this source @ -No Did you review nursing and triage notes (agree or disagree)? Why? @ -I reviewed and agree with nursing and triage notes Were old charts reviewed (outside hosp., previous admission, EMS record, old EKG, old radiological studies, urgent care reports/EKG's, [facility] records)? Report findings @ -Old charts reviewed. Differential Diagnosis (chest pain, altered mental status, abdominal pain women, abdominal pain men, vaginal bleeding, weakness, fever, dyspnea, syncope, headache, dizziness, GI bleed, back pain, seizure, CVA, palpatations, mental health, musculoskeletal)? @ -Differential Dyspnea: Coronary syndrome, arrhythmia, tamponade, asthma, COPD, pulmonary embolism, pneumonia, pneumothorax, pulmonary effusion, anaphylaxis, diabetic ketoacidosis, flailed chest, pulmonary contusion, diaphragmatic rupture, anemia, neuromuscular, this is not meant to be an all-inclusive list. EKG interpreted by me (3pts min.). @ -As above X-rays interpreted by me (1pt min.). @ -Chest x-ray reveals suspected chronic findings the patient has bilateral lower lobe infiltrates which are seen on prior chest x-rays and is likely related to some scarring is is relatively unchanged from x-rays from last month as well as from November. Patient also has a right apical pleural based thickening which is seen on those chest x-rays as well. Radiology cannot rule out possible metastatic lesion. CT interpreted by me (1pt min.). @ -None done U/S interpreted by me (1pt. min.). @ -None done What testing was considered but not performed or refused? (CT, X-rays, U/S, labs)? Why? @ -Considered CT chest to evaluate the right apical pleural thickening however patient has had multiple x-rays of the last few months and this does appear somewhat chronic and stable. Recommended he discuss with his aviation project engineer for further imaging he sees next week. He was in agreement with this plan. Plan made in conjunction with the patient. What meds were considered but not given or refused? Why? @ -None Did you discuss the management of the patient with other professionals (professionals i.e. , PA, ACCOUNTS RECEIVABLE SPECIALIST, lab, RT, psych nurse, social security specialist, shearing machine feeder, teacher, ammunition officer, watch case polisher)? Give summary @ -No Was smoking cessation discussed for >3mins.? @ -No Was critical care preformed (if so, how long)? @ -No Were there social determinants of health that impacted care today? How? (Homelessness, low income, unemployed, alcoholism, drug addiction, transportation, low edu. Level, literacy, decrease access to med. care, retirement, rehab)? @ -No Was there de-escalation of care discussed even if they declined (Discuss DNR or withdrawal of care, Hospice)? DNR status @ -No What co-morbidities impacted this encounter? (DM, HTN, Smoking, COPD, CAD, Cancer, CVA, ARF, Chemo, Hep., AIDS, mental health diagnosis, sleep apnea, morbid obesity)? @ -None Was patient admitted / discharged? Hospital course, mention meds given and route, prescriptions, significant lab abnormalities, going to OR and other pertinent info. @ -Patient's workup was started in triage. Based on the patient's presentation and physical exam, I'm concerned for likely has chronic bronchitis versus COPD. States he is normally on Levaquin and is asking for an antibiotic switches believes this may be contributing to his symptoms. Has been taking doxycycline. Vitals within acceptable limits for the patient. We will obtain basic labs, screening EKG, chest x-ray, viral swabs. He was in agreement with this plan. EKG showed no signs of acute ischemia.Labs are unremarkable. Viral swabs negative. Chest x-ray shows what appears to be chronic findings as well as a concerning pleural thickening in the right apical lung. This appears somewhat chronic as it is seen on prior chest x-rays. No recent CT chest. Has been having for close follow-up with aviation project engineer Dr. Vela. I discussed results with the patient and he expresses understanding. We discussed specifically the findings of the right apical lung. We discussed possibly obtain CT chest on this visit however as the patient has had this on previous x-rays, and has close follow-up with pulmonology, recommended discussion with Dr. Baird. He was in agreement this plan. We will switch his antibiotic to Levaquin. He also be given prednisone for home. Patient was in agreement this plan. Strict return precautions discussed.Patient does have breathing treatments and inhalers at [facility]. I will provide the patient with a prescription for Levaquin, prednisone. I instructed the patient to follow up with their PCP in the next 1-3 days. I explained that the patient should return to the emergency department if they experience any worsening symptoms. Strict return precautions were discussed with the patient. The patient expressed understanding of these instructions. I a nswered all questions that the patient had. The patient was discharged home in good condition with their prescriptions and follow up information. Undiagnosed new problem with uncertain prognosis? @ -No Drug Therapy requiring intensive monitoring for toxicity (Heparin, Nitro, Insulin, Cardizem)? @ -No Were any procedures done? @ -No Diagnosis/symptom? @ -COPD Acute, or Chronic, or Acute on Chronic? @ -Acute on chronic Uncomplicated (without systemic symptoms) or Complicated (systemic symptoms)? @ -Uncomplicated Side effects of treatment? @ -none Exacerbation, Progression, or Severe Exacerbation] @ -Exacerbation Poses a threat to life or bodily function? @ -no Diagnosis/symptom? @ -Suspected pneumonia Acute, or Chronic, or Acute on Chronic? @ -. Acute on Chronic Uncomplicated (without systemic symptoms) or Complicated (systemic symptoms)? @ -Complicated Side effects of treatment? @ -none Exacerbation, Progression, or Severe Exacerbation] @ -no Poses a threat to life or bodily function? @ -no - Lab Data Result diagrams: 03/06/23 11:00 03/06/23 11:00 Lab Results 03/06/23 03/06/23 03/06/23 Range/Units 11:00 11:00 12:16 WBC 8.8 (3.8-10.6) k/uL RBC 4.07 L (4.30-5.90) m/uL Hgb 12.5 L (13.0-17.5) gm/dL Hct 37.8 L (39.0-53.0) % MCV 92.8 (80.0-100.0) fL MCH 30.7 (25.0-35.0) pg MCHC 33.1 (31.0-37.0) g/dL RDW 13.4 (11.5-15.5) % Plt Count 264 (150-450) k/uL MPV 7.4 Neutrophils % 84 % Lymphocytes % 8 % Monocytes % 5 % Eosinophils % 2 % Basophils % 0 % Neutrophils # 7.4 (1.3-7.7) k/uL Lymphocytes # 0.7 L (1.0-4.8) k/uL Monocytes # 0.4 (0-1.0) k/uL Eosinophils # 0.1 (0-0.7) k/uL Basophils # 0.0 (0-0.2) k/uL Sodium 138 (137-145) mmol/L Potassium 4.4 (3.5-5.1) mmol/L Chloride 101 (98-107) mmol/L Carbon Dioxide 27 (22-30) mmol/L Anion Gap 10 mmol/L BUN 11 (9-20) mg/dL Creatinine 0.64 L (0.66-1.25) mg/dL Est GFR (CKD-EPI)AfAm >90 (>60 ml/min/1.73 sqM) Est GFR (CKD-EPI)NonAf >90 (>60 ml/min/1.73 sqM) Glucose 84 (74-99) mg/dL Calcium 9.4 (8.4-10.2) mg/dL Total Bilirubin 0.9 (0.2-1.3) mg/dL AST 27 (17-59) U/L ALT 14 (4-49) U/L Alkaline Phosphatase 89 (38-126) U/L Total Protein 8.3 H (6.3-8.2) g/dL Albumin 3.9 (3.5-5.0) g/dL Influenza Type A (PCR) Not Detected (Not Detectd) Influenza Type B (PCR) Not Detected (Not Detectd) RSV (PCR) Not Detected (Not Detectd) SARS-CoV-2 (PCR) Not Detected (Not Detectd) - EKG Data -: EKG Interpreted by Me EKG Comments: 12-lead Electrocardiogram Interpretation Note EKG was reviewed and interpreted by myself. 12-lead ECG performed at 1100 is interpreted by me as revealing normal sinus rhythm at a rate of 98 beats per minute. Left axis deviation. CA interval is 192 ms, QRS durations 101 ms, QTc is 404 ms.. There were no ST or T wave abnormalities to suggest myocardial ischemia or injury. R wave progression across the precordium was satisfactory. By my interpretation this EKG is non-diagnostic for acute ischemia. Disposition Clinical Impression: Pneumonia, COPD (chronic obstructive pulmonary disease) Disposition: HOME SELF-CARE Condition: Good Instructions (If sedation given, give patient instructions): Chronic Cough (ED), Community Acquired Pneumonia (ED), Bronchiectasis (ED) Additional Instructions: Follow up with Dr. vela to discuss right apical pleural thickening. Prescriptions: predniSONE [Deltasone] 40 mg PO DAILY 5 Days #10 tab Levofloxacin [Levaquin] 750 mg PO DAILY 10 Days #10 tab Is patient prescribed a controlled substance at d/c from ED?: No Referrals: [facility],Clinic [Primary Care Provider] - 1-2 days Time of Disposition: 13:44
--- NOTE | 2023-03-06 13:04 | XR ---
EXAMINATION TYPE: XR chest 2V DATE OF EXAM: 03/06/2023 COMPARISON: 12/06/2017 TECHNIQUE: PA and lateral views submitted. HISTORY: Shortness of breath FINDINGS: Bilateral lower lobe infiltrate. Scoliosis of the spine with atherosclerotic change aorta. Diffuse os teopenia with arthropathy of the shoulders. Heart size normal and no overt failure. Osseous structure s demonstrate hypertrophic and degenerative changes of the spine. Biapical pleural thickening on the right. IMPRESSION: 1. COPD with bilateral lower lobe infiltrate. There is interval development of right apical pleural-b ased thickening for which CT scan is recommended to exclude a apical lung lesion..
[2023-03-06 13:28] VITALS: BP 122/76
[2023-03-06] MEDS ORDERED: LEVOFLOXACIN 750 MG TAB PO STA (13:41)
[2023-03-06 14:05] VITALS: PULSE 103; TEMP 97.6
== END 2023-03-06 14:08 | disposition home or self-care (01) ==
LOC: EC 10:16
DX: J18.9 Pneumonia, unspecified organism (principal); J44.9 Chronic obstructive pulmonary disease, unspecified; I10 Essential (primary) hypertension; K21.9 Gastro-esophageal reflux disease without esophagitis; E07.9 Disorder of thyroid, unspecified; Z87.891 Personal history of nicotine dependence; Z79.890 Hormone replacement therapy; Z79.899 Other long term (current) drug therapy; Z20.822 Contact with and (suspected) exposure to COVID-19
CPT/HCPCS: 36415; 94640; 93005; 80053; 85025; 87636; 71046; 99285; 96374; J2930

== ENCOUNTER 2023-08-16 15:47 | Inpatient (IN) | payer MEDICARE, OTHER ==
[2023-08-16 16:41] LABS: Basophils # (A) 0.1 k/uL (0-0.2); Basophils % (A) 0 %; Eosinophils # (A) 0.1 k/uL (0-0.7); Eosinophils % (A) 0 %; HCT 37.9 % (39.0-53.0); HGB 12.4 gm/dL (13.0-17.5); Lymphocytes # (A) 1.5 k/uL (1.0-4.8); Lymphocytes % (A) 9 %; MCH 30.4 pg (25.0-35.0); MCHC 32.9 g/dL (31.0-37.0); MCV 92.6 fL (80.0-100.0); Mean Platelet Volume 7.5; Monocytes # (A) 0.5 k/uL (0-1.0); Monocytes % (A) 3 %; Neutrophils # (A) 14.2 k/uL (1.3-7.7); Neutrophils % (A) 86 %; Platelet Count 266 k/uL (150-450); RBC 4.09 m/uL (4.30-5.90); RDW 13.2 % (11.5-15.5); WBC 16.4 k/uL (3.8-10.6)
[2023-08-16 16:51] LABS: Partial Thromboplastin Time 25.2 sec (22.0-30.0); Prothrombin Time 11.3 sec (10.0-12.5)
[2023-08-16] MEDS: SODIUM CHLORIDE 0.9% 1,000 ML IV SCH (16:53)
[2023-08-16] MEDS: diphenhydrAMINE 50 MG/ML 1 ML VIAL IVP STA (16:54)
[2023-08-16] MEDS: METOCLOPRAMIDE 5 MG/ML 2 ML VIAL IVP STA (16:54)
[2023-08-16 16:57] LABS: ALT 10 U/L (4-49); AST 27 U/L (17-59); African American GFR (CKD) >90 (>60 ml/min/1.73 sqM); Albumin 3.9 g/dL (3.5-5.0); Alkaline Phosphatase 95 U/L (38-126); Anion Gap 8 mmol/L; Blood Urea Nitrogen 10 mg/dL (9-20); Calcium 9.4 mg/dL (8.4-10.2); Carbon Dioxide 28 mmol/L (22-30); Chloride 102 mmol/L (98-107); Glucose 113 mg/dL (74-99); Magnesium 1.8 mg/dL (1.6-2.3); Non-African American GFR(CKD) >90 (>60 ml/min/1.73 sqM); Sodium 138 mmol/L (137-145); Total Bilirubin 0.8 mg/dL (0.2-1.3); Total Protein 8.1 g/dL (6.3-8.2)
--- NOTE | 2023-08-16 17:21 | XR ---
EXAMINATION: XR chest 2V: 08/16/2023 4:40 PM CLINICAL INDICATION: difficulty breathing TECHNIQUE: AP and lateral views COMPARISON: 08/02/2023 FINDINGS/IMPRESSION: LUNG PARENCHYMA: There is moderate-marked interval worsening in the overall lung inflation pattern. T he previously seen bibasilar and right apical dense consolidation is redemonstrated, with intervening prominent added opacity throughout the interstitium with areas of coalescence, right greater than le ft. The pattern is consistent with a clinical diagnosis of increasing pneumonia. Request clinical exc lusion of a component of pulmonary edema. PLEURAL SPACES: No pneumothorax. No large pleural effusion. MEDIASTINUM: The cardiomediastinal silhouette is unremarkable. OTHER: No acute skeletal or soft tissue findings.
--- NOTE | 2023-08-16 19:08 | ED ---
SOB HPI - General Chief Complaint: Shortness of Breath Stated Complaint: Maria Fernanda Time Seen by Provider: 08/16/23 16:00 Source: patient Mode of arrival: EMS Limitations: no limitations - History of Present Illness Initial Comments: 83-year-old male with past medical history of bronchiectasis who presents to the emergency department with shortness of breath. Patient was recently hospitalized for COVID. States that he has been short of breath since he was d iagnosed but his symptoms got somewhat better when he was discharged home. States over the past day he has become extremely short of breath. He has a thick productive cough. Patient arrives and is febrile. He is 87% on room air. Patient has several episodes of vomiting. He denies chest pain. Does report to some brown sputum production. Denies history of DVT or PE. No other alleviating, precipitating modifying factors - Related Data Home Medications Medication Instructions Recorded Confirmed Levothyroxine Sodium [Synthroid] 100 mcg PO DAILY 11/15/16 08/16/23 Omeprazole [PriLOSEC] 20 mg PO DAILY 11/15/16 08/16/23 Terazosin [Hytrin] 4 mg PO HS 08/05/17 08/16/23 Acetylcysteine [Nac] 500 mg PO BID 08/16/23 08/16/23 Albuterol Inhaler [Ventolin Hfa 1 - 2 puff INHALATION RT-Q6H PRN 08/16/23 08/16/23 Inhaler] Cholecalciferol (Vitamin D3) 50 mcg PO DAILY 08/16/23 08/16/23 [Vitamin D3 (50 Mcg = 2000 Iu)] Fluticasone Propion/Salmeterol 1 puff INHALATION RT-BID 08/16/23 08/16/23 [Fluticasone-Salmeterol 250-50] Vitamin E (Dl,Tocopheryl Acet) 400 unit PO DAILY 08/16/23 08/16/23 [Vitamin E (400 Iu = 180 mg)] guaiFENesin [Mucinex] 600 mg PO Q12H 08/16/23 08/16/23 polyethylene glycoL 3350 [Miralax] 17 gm PO DAILY PRN 08/16/23 08/16/23 Allergies Allergy/AdvReac Type Severity Reaction Status Date / Time No Known Allergies Allergy Verified 08/16/23 20:00 Review of Systems ROS Statement: Those systems with pertinent positive or pertinent negative responses have been documented in the HPI. ROS Other: All systems not noted in ROS Statement are negative. Past Medical History Past Medical History: COPD, GERD/Reflux, Hearing Disorder / Deafness, Hypertension, Pneumonia, Prostate Disorder, Respiratory Disorder, Thyroid Disorder Additional Past Medical History / Comment(s): Bronchiectasis, difficulty swallowing/narrowing of esophagus, hx sepsis secondary to Pneumonia 07/2017, bilateral hearing aid use. History of Any Multi-Drug Resistant Organisms: None Reported Past Surgical History: Orthopedic Surgery, Tonsillectomy Additional Past Surgical History / Comment(s): Thyroidectomy, right knee arthroscopy, EGD with dilation X2, bronchoscopy, colonoscopy, bilateral catara cts removed. Past Anesthesia/Blood Transfusion Reactions: No Reported Reaction Additional Past Anesthesia/Blood Transfusion Reaction / Comment(s): Aspirated food in lung after last EGD 11/2017. Past Psychological History: No Psychological Hx Reported Smoking Status: Former smoker Past Alcohol Use History: Occasional Past Drug Use History: None Reported - Past Family History Mother Family Medical History: No Reported History General Exam Limitations: no limitations General appearance: alert, in no apparent distress Head exam: Present: atraumatic, normocephalic, normal inspection Eye exam: Present: normal appearance, PERRL, EOMI. Absent: scleral icterus, conjunctival injection, periorbital swelling ENT exam: Present: normal exam, mucous membranes moist Neck exam: Present: normal inspection. Absent: tenderness, meningismus, lymphadenopathy Respiratory exam: Present: respiratory distress, wheezes, accessory muscle use, decreased breath sounds, other (Course). Absent: rales, rhonchi, stridor Cardiovascular Exam: Present: regular rate, normal rhythm, normal heart sounds. Absent: systolic murmur, diastolic murmur, rubs, gallop, clicks GI/Abdominal exam: Present: soft, normal bowel sounds. Absent: distended, tenderness, guarding, rebound, rigid Extremities exam: Present: normal inspection, full ROM, normal capillary refill. Absent: tenderness, pedal edema, joint swelling, calf tenderness Back exam: Present: normal inspection Neurological exam: Present: alert, oriented X3, CN II-XII intact Psychiatric exam: Present: normal affect, normal mood Skin exam: Present: warm, dry, intact, normal color. Absent: rash Course Vital Signs 08/16/23 08/16/23 08/16/23 15:51 16:05 16:08 Temperature 100.8 F H Pulse Rate 117 H 107 H Respiratory 24 24 20 Rate Blood Pressure 140/79 133/74 O2 Sat by Pulse 87 L 97 Oximetry 08/16/23 08/16/23 08/16/23 17:00 20:34 21:45 Temperature 99.3 F 98.3 F Pulse Rate 106 H 82 85 Respiratory 22 22 22 Rate Blood Pressure 132/78 111/60 105/57 O2 Sat by Pulse 96 95 94 L Oximetry 08/16/23 08/16/23 08/17/23 23:00 23:55 01:03 Temperature Pulse Rate 76 70 64 Respiratory 22 24 25 H Rate Blood Pressure 92/52 101/54 95/53 O2 Sat by Pulse 96 95 95 Oximetry Procedures - [place] Protocol (Time Out) Nurse: Alexei Hadley Medical Decision Making - Medical Decision Making Was pt. sent in by a medical professional or institution (, PA, CHAIN TESTING MACHINE OPERATOR, urgent care, hospital, or skilled nursing...) When possible be specific @ -No Did you speak to anyone other than the patient for history (EMS, parent, family, police, friend...)? What history was obtained from this source @ -Spoke with EMS Did you review nursing and triage notes (agree or disagree)? Why? @ -I reviewed and agree with nursing and triage notes Were old charts reviewed (outside hosp., previous admission, EMS record, old EKG, old radiological studies, urgent care reports/EKG's, skilled nursing records)? Report findings @ -I reviewed patient's discharge summary from 2 weeks ago Differential Diagnosis (chest pain, altered mental status, abdominal pain women, abdominal pain men, vaginal bleeding, weakness, fever, dyspnea, syncope, headache, dizziness, GI bleed, back pain, seizure, CVA, palpatations, mental health, musculoskeletal)? @ -Differential Dyspnea: Coronary syndrome, arrhythmia, tamponade, asthma, COPD, pulmonary embolism, pneumonia, pneumothorax, pulmonary effusion, anaphylaxis, diabetic ketoacidosis, flailed chest, pulmonary contusion, diaphragmatic rupture, anemia, neuromuscular, this is not meant to be an all-inclusive list. EKG interpreted by me (3pts min.). @ -Yes and demonstrates sinus tachycardia with a rate of 110. IL interval 172. QRS 102. QTc of 383. No acute ST segment elevations or depressions X-rays interpreted by me (1pt min.). @ -Yes and demonstrates worsening pneumonia CT interpreted by me (1pt min.). @ -Yes and does not demonstrate PE U/S interpreted by me (1pt. min.). @ -None done What testing was considered but not performed or refused? (CT, X-rays, U/S, labs)? Why? @ -None What meds were considered but not given or refused? Why? @ -None Did you discuss the management of the patient with other professionals (manan jara i.e. , PA, CHAIN TESTING MACHINE OPERATOR, lab, RT, psych nurse, drug abuse social worker, grade recorder, teacher, zoology technical officer, geriatric case manager)? Give summary @ -Spoke with Dr. Summers for admission Was smoking cessation discussed for >3mins.? @ -No Was critical care preformed (if so, how long)? @ -No Were there social determinants of health that impacted care today? How? (Homelessness, low income, unemployed, alcoholism, drug addiction, transportation, low edu. Level, literacy, decrease access to med. care, long-term, rehab)? @ -No Was there de-escalation of care discussed even if they declined (Discuss DNR or withdrawal of care, Hospice)? DNR status @ -No What co-morbidities impacted this encounter? (DM, HTN, Smoking, COPD, CAD, Cancer, CVA, ARF, Chemo, Hep., AIDS, mental health diagnosis, sleep apnea, morbid obesity)? @ -Bronchiectasis Was patient admitted / discharged? Hospital course, mention meds given and route, prescriptions, significant lab abnormalities, going to OR and other pertinent info. @ -Admitted. Upon arrival patient placed into room 2. Thorough history and physical exam was performed. Patient was given Zofran for nausea. Laboratory studies are conducted. Chest x-ray was performed. Due to hypoxia, tachycardia and brown sputum production a CT of the chest was performed. No PE but patient does have worsening pneumonia. Antibiotics are initiated. Patient was given a breathing treatment and steroids. Patient will be admitted to [facility] [place] physicians with sonar watchstander to consult Undiagnosed new problem with uncertain prognosis? @ -No Drug Therapy requiring intensive monitoring for toxicity (Heparin, Nitro, Insulin, Cardizem)? @ -No Were any procedures done? @ -No Diagnosis/symptom? @ -Acute hypoxic respiratory failure, pneumonia, history of bronchiectasis, recent diagnosis of COVID Acute, or Chronic, or Acute on Chronic? @ -Acute Uncomplicated (without systemic symptoms) or Complicated (systemic symptoms)? @ -Complicated Side effects of treatment? @ -No Exacerbation, Progression, or Severe Exacerbation? @ -Yes Poses a threat to life or bodily function? How? (Chest pain, USA, VT, pneumonia, PE, COPD, DKA, ARF, appy, cholecystitis, CVA, Diverticulitis, Homicidal, Suicidal, threat to staff... and all critical care pts) @ -Yes as patient is hypoxic - Lab Data Result diagrams: 08/19/23 06:15 08/19/23 06:15 Lab Results 08/16/23 08/16/23 08/16/23 Range/Units 16:02 16:02 16:02 WBC 16.4 H (3.8-10.6) k/uL RBC 4.09 L (4.30-5.90) m/uL Hgb 12.4 L (13.0-17.5) gm/dL Hct 37.9 L (39.0-53.0) % MCV 92.6 (80.0-100.0) fL MCH 30.4 (25.0-35.0) pg MCHC 32.9 (31.0-37.0) g/dL RDW 13.2 (11.5-15.5) % Plt Count 266 (150-450) k/uL MPV 7.5 Neutrophils % 86 % Lymphocytes % 9 % Monocytes % 3 % Eosinophils % 0 % Basophils % 0 % Neutrophils # 14.2 H (1.3-7.7) k/uL Lymphocytes # 1.5 (1.0-4.8) k/uL Monocytes # 0.5 (0-1.0) k/uL Eosinophils # 0.1 (0-0.7) k/uL Basophils # 0.1 (0-0.2) k/uL PT 11.3 (10.0-12.5) sec INR 1.0 (<1.2) APTT 25.2 (22.0-30.0) sec D-Dimer (<0.60) mg/L FEU Sodium 138 (137-145) mmol/L Potassium 4.0 (3.5-5.1) mmol/L Chloride 102 (98-107) mmol/L Carbon Dioxide 28 (22-30) mmol/L Anion Gap 8 mmol/L BUN 10 (9-20) mg/dL Creatinine 0.58 L (0.66-1.25) mg/dL Est GFR (CKD-EPI)AfAm >90 (>60 ml/min/1.73 sqM) Est GFR (CKD-EPI)NonAf >90 (>60 ml/min/1.73 sqM) Glucose 113 H (74-99) mg/dL Plasma Lactic Acid [place] (0.7-2.0) mmol/L Calcium 9.4 (8.4-10.2) mg/dL Magnesium 1.8 (1.6-2.3) mg/dL Total Bilirubin 0.8 (0.2-1.3) mg/dL AST 27 (17-59) U/L ALT 10 (4-49) U/L Alkaline Phosphatase 95 (38-126) U/L Troponin I (0.000-0.034) ng/mL Total Protein 8.1 (6.3-8.2) g/dL Albumin 3.9 (3.5-5.0) g/dL Urine Color Urine Appearance (Clear) Urine pH (5.0-8.0) Ur Specific [place] (1.001-1.035) Urine Protein (Negative) Urine Glucose (UA) (Negative) Urine Ketones (Negative) Urine Blood (Negative) Urine Nitrite (Negative) Urine Bilirubin (Negative) Urine Urobilinogen (<2.0) mg/dL Ur Leukocyte Esterase (Negative) Urine RBC (0-5) /hpf Urine WBC (0-5) /hpf Ur Squamous Epith Cells (0-4) /hpf Urine Mucus (None) /hpf Influenza Type A (PCR) (Not Detectd) Influenza Type B (PCR) (Not Detectd) RSV (PCR) (Not Detectd) SARS-CoV-2 (PCR) (Not Detectd) 08/16/23 08/16/23 08/16/23 Range/Units 16:02 16:02 16:02 WBC (3.8-10.6) k/uL RBC (4.30-5.90) m/uL Hgb (13.0-17.5) gm/dL Hct (39.0-53.0) % MCV (80.0-100.0) fL MCH (25.0-35.0) pg MCHC (31.0-37.0) g/dL RDW (11.5-15.5) % Plt Count (150-450) k/uL MPV Neutrophils % % Lymphocytes % % Monocytes % % Eosinophils % % Basophils % % Neutrophils # (1.3-7.7) k/uL Lymphocytes # (1.0-4.8) k/uL Monocytes # (0-1.0) k/uL Eosinophils # (0-0.7) k/uL Basophils # (0-0.2) k/uL PT (10.0-12.5) sec INR (<1.2) APTT (22.0-30.0) sec D-Dimer (<0.60) mg/L FEU Sodium (137-145) mmol/L Potassium (3.5-5.1) mmol/L Chloride (98-107) mmol/L Carbon Dioxide (22-30) mmol/L Anion Gap mmol/L BUN (9-20) mg/dL Creatinine (0.66-1.25) mg/dL Est GFR (CKD-EPI)AfAm (>60 ml/min/1.73 sqM) Est GFR (CKD-EPI)NonAf (>60 ml/min/1.73 sqM) Glucose (74-99) mg/dL Plasma Lactic Acid [place] 1.3 (0.7-2.0) mmol/L Calcium (8.4-10.2) mg/dL Magnesium (1.6-2.3) mg/dL Total Bilirubin (0.2-1.3) mg/dL AST (17-59) U/L ALT (4-49) U/L Alkaline Phosphatase (38-126) U/L Troponin I 0.018 (0.000-0.034) ng/mL Total Protein (6.3-8.2) g/dL Albumin (3.5-5.0) g/dL Urine Color Urine Appearance (Clear) Urine pH (5.0-8.0) Ur Specific [place] (1.001-1.035) Urine Protein (Negative) Urine Glucose (UA) (Negative) Urine Ketones (Negative) Urine Blood (Negative) Urine Nitrite (Negative) Urine Bilirubin (Negative) Urine Urobilinogen (<2.0) mg/dL Ur Leukocyte Esterase (Negative) Urine RBC (0-5) /hpf Urine WBC (0-5) /hpf Ur Squamous Epith Cells (0-4) /hpf Urine Mucus (None) /hpf Influenza Type A (PCR) Not Detected (Not Detectd) Influenza Type B (PCR) Not Detected (Not Detectd) RSV (PCR) Not Detected (Not Detectd) SARS-CoV-2 (PCR) Detected A (Not Detectd) 08/16/23 08/16/23 Range/Units 16:43 20:08 WBC (3.8-10.6) k/uL RBC (4.30-5.90) m/uL Hgb (13.0-17.5) gm/dL Hct (39.0-53.0) % MCV (80.0-100.0) fL MCH (25.0-35.0) pg MCHC (31.0-37.0) g/dL RDW (11.5-15.5) % Plt Count (150-450) k/uL MPV Neutrophils % % Lymphocytes % % Monocytes % % Eosinophils % % Basophils % % Neutrophils # (1.3-7.7) k/uL Lymphocytes # (1.0-4.8) k/uL Monocytes # (0-1.0) k/uL Eosinophils # (0-0.7) k/uL Basophils # (0-0.2) k/uL PT (10.0-12.5) sec INR (<1.2) APTT (22.0-30.0) sec D-Dimer 0.91 H (<0.60) mg/L FEU Sodium (137-145) mmol/L Potassium (3.5-5.1) mmol/L Chloride (98-107) mmol/L Carbon Dioxide (22-30) mmol/L Anion Gap mmol/L BUN (9-20) mg/dL Creatinine (0.66-1.25) mg/dL Est GFR (CKD-EPI)AfAm (>60 ml/min/1.73 sqM) Est GFR (CKD-EPI)NonAf (>60 ml/min/1.73 sqM) Glucose (74-99) mg/dL Plasma Lactic Acid Teres[place] (0.7-2.0) mmol/L Calcium (8.4-10.2) mg/dL Magnesium (1.6-2.3) mg/dL Total Bilirubin (0.2-1.3) mg/dL AST (17-59) U/L ALT (4-49) U/L Alkaline Phosphatase (38-126) U/L Troponin I (0.000-0.034) ng/mL Total Protein (6.3-8.2) g/dL Albumin (3.5-5.0) g/dL Urine Color Colorless Urine Appearance Clear (Clear) Urine pH 5.5 (5.0-8.0) Ur Specific [place] 1.048 H (1.001-1.035) Urine Protein Negative (Negative) Urine Glucose (UA) Negative (Negative) Urine Ketones Negative (Negative) Urine Blood Small H (Negative) Urine Nitrite Negative (Negative) Urine Bilirubin Negative (Negative) Urine Urobilinogen <2.0 (<2.0) mg/dL Ur Leukocyte Esterase Negative (Negative) Urine RBC 2 (0-5) /hpf Urine WBC 1 (0-5) /hpf Ur Squamous Epith Cells <1 (0-4) /hpf Urine Mucus Rare H (None) /hpf Influenza Type A (PCR) (Not Detectd) Influenza Type B (PCR) (Not Detectd) RSV (PCR) (Not Detectd) SARS-CoV-2 (PCR) (Not Detectd) Disposition Clinical Impression: Pneumonia, Fever, Bronchiectasis Disposition: ADMITTED IP TO THIS [facility] Condition: Serious Is patient prescribed a controlled substance at d/c from ED?: No Time of Disposition: 20:46 Decision to Admit Reason: Admit from EC Decision Date: 08/16/23 Decision Time: 20:46
--- NOTE | 2023-08-16 19:27 | CT ---
EXAMINATION TYPE: CT chest angio for PE DATE OF EXAM: 08/16/2023 COMPARISON: NONE HISTORY: SOB, COVID + XFEW WEEKS, hemoptysis, tachycardia, hypoxia CT DLP: 385.4 mGycm. Automated Exposure Control for Dose Reduction was Utilized. CONTRAST: CTA scan of the thorax is performed with IV Contrast, patient injected with 70ml mL of Isov ue 370. MIP Images are created on CT scanner and reviewed. 3D reconstructed images are created on an independent workstation and reviewed. FINDINGS: LUNGS: There are multifocal prominent ill-defined zones of consolidation throughout the right and lef t lung, consistent with multifocal bronchopneumonia. Would suggest consideration of follow-up CT to m onitor. There is tracheomegaly and diffuse bronchiectasis, varicoid bronchiectasis in the lung bases and prominent in degree. There is no pleural effusion or pneumothorax. MEDIASTINUM: There is moderately satisfactory enhancement of the pulmonary arteries with no CT eviden ce for pulmonary embolism. There is no evidence of acute aortic process. There are prominent coronary calcifications. No cardiomegaly or pericardial effusion. The caliber of the central pulmonary arteri es is mildly dilated, which can correlate with a clinical diagnosis of pulmonary hypertension. There are numerous subcentimeter lymph nodes, but no size criteria fulfilling hilar or mediastinal ad enopathy. OTHER: No additional significant abnormality is seen. IMPRESSION: Negative for pulmonary embolism or acute aortic process. Prominent coronary calcifications noted. Severe multifocal bilateral bronchopneumonia.
[2023-08-16] MEDS ORDERED: PNEUMONIA PROTOCOL UTILIZED 1 EACH MISC PO PRN (20:35)
[2023-08-16 20:37] LABS: Appearance,Urine Clear (Clear); Bilirubin,Urine Negative (Negative); Blood,Urine Small (Negative); Color,Urine Colorless; Glucose,Urine (UA) Negative (Negative); Ketones,Urine Negative (Negative); Leukocyte Esterase,Urine Negative (Negative); Mucus,Urine Rare /hpf; Nitrite,Urine Negative (Negative); PH, Urine 5.5 (5.0-8.0); Protein,Urine Negative (Negative); RBC,Urine 2 /hpf (0-5); Squamous Epithelial Cell,Urine <1 /hpf (0-4); Urobilinogen,Urine <2.0 mg/dL (<2.0); WBC,Urine 1 /hpf (0-5)
[2023-08-16 20:42] LABS: Specific Gravity,Urine 1.048 (1.001-1.035)
[2023-08-16] MEDS: ACETAMINOPHEN TAB 500 MG TAB PO STA (20:46)
[2023-08-16] MEDS: PIPERACILLIN-TAZOBACTAM 3.375 GM in SODIUM CHLORIDE 0.9% 100 ML IVPB SCH (23:51)
--- NOTE | 2023-08-17 03:07 | P.HPIM ---
History of Present Illness H&P Date: 08/16/23 Chief Complaint: Weakness shortness of breath 83-year-old male with bronchiectasis not on home oxygen Patient coming in for evaluation of progressive generalized weakness with exertional dyspnea, he reports chronic cough associated with light hemoptysis for the past 5 to 7 years unchanged. He was diagnosed with COVID about 4 weeks ago he was sick for day or 2 where he had generalized malaise and feeling very tired and fatigued and then improved however in the ED he is still testing positive for COVID. He was found to be hypoxic in the emergency department was started on supplemental oxygen otherwise he does not use oxygen at home he denies any smoking denies any illicit drugs denies any recent travel or history of blood clots D-dimer was positive in the ED CT angio of the chest showed no acute pulmonary embolism however confirmed possible pneumonia. Patient otherwise denies any weight changes denies any chest pain denies any abdominal pain denies any nausea vomiting changes in bowel or urinary habits Denies tobacco smoking illicit drugs or heavy alcohol review of systems Pertinent positives as noted in HPI. All other systems were reviewed and are ne gative on exam Constitutional: No acute distress, conversant, pleasant Eyes: Anicteric sclerae, moist conjunctiva, Pupils equal round reactive to light ENMT: NC/AT Oropharynx clear, no erythema, or exudates Neck: Supple, no masses, or JVD No carotid bruits No thyromegaly Lungs: Diminished breath sounds throughout Clear to percussion Normal respiratory effort, no accessory muscle use Cardiovascular: Heart regular in rate and rhythm, No murmurs, gallops, or rubs No peripheral edema Abdominal: Soft Nontender, no guarding, rebound or rigidity Abdomen moving with respiration Normoactive bowel sounds Extremities: No digital cyanosis Pedal pulses intact and symmetrical Radial pulses intact and symmetrical No calf tenderness Psychiatric: Alert and oriented to person, place and time Appropriate affect fair judgement Neuro Muscles Strength 5/5 in all 4 extremities Sensation to light touch grossly present throughout Cranial nerves II-XII grossly intact Past Medical History Past Medical History: COPD, GERD/Reflux, Hearing Disorder / Deafness, Hypertension, Pneumonia, Prostate Disorder, Respiratory Disorder, Thyroid Disorder Additional Past Medical History / Comment(s): Bronchiectasis, difficulty swallowing/narrowing of esophagus, hx sepsis secondary to Pneumonia 07/2017, bilateral hearing aid use. History of Any Multi-Drug Resistant Organisms: None Reported Past Surgical History: Orthopedic Surgery, Tonsillectomy Additional Past Surgical History / Comment(s): Thyroidectomy, right knee arthroscopy, EGD with dilation X2, bronchoscopy, colonoscopy, bilateral cataracts removed. Past Anesthesia/Blood Transfusion Reactions: No Reported Reaction Additional Past Anesthesia/Blood Transfusion Reaction / Comment(s): Aspirated food in lung after last EGD 11/2017. Past Psychological History: No Psychological Hx Reported Smoking Status: Former smoker Past Alcohol Use History: Occasional Past Drug Use History: None Reported - Past Family History Mother Family Medical History: No Reported History Medications and Allergies Home Medications Medication Instructions Recorded Confirmed Type Levothyroxine Sodium [Synthroid] 100 mcg PO DAILY 11/15/16 08/16/23 History Omeprazole [PriLOSEC] 20 mg PO DAILY 11/15/16 08/16/23 History Terazosin [Hytrin] 4 mg PO HS 08/05/17 08/16/23 History Acetylcysteine [Nac] 500 mg PO BID 08/16/23 08/16/23 History Albuterol Inhaler [Ventolin Hfa 1 - 2 puff INHALATION RT-Q6H PRN 08/16/23 08/16/23 History Inhaler] Cholecalciferol (Vitamin D3) 50 mcg PO DAILY 08/16/23 08/16/23 History [Vitamin D3 (50 Mcg = 2000 Iu)] Fluticasone Propion/Salmeterol 1 puff INHALATION RT-BID 08/16/23 08/16/23 History [Fluticasone-Salmeterol 250-50] Vitamin E (Dl,Tocopheryl Acet) 400 unit PO DAILY 08/16/23 08/16/23 History [Vitamin E (400 Iu = 180 mg)] guaiFENesin [Mucinex] 600 mg PO Q12H 08/16/23 08/16/23 History polyethylene glycoL 3350 [Miralax] 17 gm PO DAILY PRN 08/16/23 08/16/23 History Allergies Allergy/AdvReac Type Severity Reaction Status Date / Time No Known Allergies Allergy Verified 08/16/23 20:00 Physical Exam Vitals: Vital Signs Temp Pulse Resp BP Pulse Ox 08/16/23 23:55 70 24 101/54 95 08/16/23 23:00 76 22 92/52 96 08/16/23 21:45 98.3 F 85 22 105/57 94 L 08/16/23 20:34 99.3 F 82 22 111/60 95 08/16/23 17:00 106 H 22 132/78 96 08/16/23 16:08 107 H 20 133/74 97 08/16/23 16:05 24 08/16/23 15:51 100.8 F H 117 H 24 140/79 87 L Intake and Output 08/16/23 08/16/23 08/17/23 14:59 22:59 06:59 Other: Weight 63.503 kg Results CBC & Chem 7: 08/16/23 16:02 08/16/23 16:02 Labs: Abnormal Lab Results - Last 24 Hours (Table) 08/16/23 08/16/23 08/16/23 Range/Units 16:02 16:02 16:02 WBC 16.4 H (3.8-10.6) k/uL RBC 4.09 L (4.30-5.90) m/uL Hgb 12.4 L (13.0-17.5) gm/dL Hct 37.9 L (39.0-53.0) % Neutrophils # 14.2 H (1.3-7.7) k/uL D-Dimer (<0.60) mg/L FEU Creatinine 0.58 L (0.66-1.25) mg/dL Glucose 113 H (74-99) mg/dL Ur Specific [place] (1.001-1.035) Urine Blood (Negative) Urine Mucus (None) /hpf SARS-CoV-2 (PCR) Detected A (Not Detectd) 08/16/23 08/16/23 Range/Units 16:43 20:08 WBC (3.8-10.6) k/uL RBC (4.30-5.90) m/uL Hgb (13.0-17.5) gm/dL Hct (39.0-53.0) % Neutrophils # (1.3-7.7) k/uL D-Dimer 0.91 H (<0.60) mg/L FEU Creatinine (0.66-1.25) mg/dL Glucose (74-99) mg/dL Ur Specific [place] 1.048 H (1.001-1.035) Urine Blood Small H (Negative) Urine Mucus Rare H (None) /hpf SARS-CoV-2 (PCR) (Not Detectd) Assessment and Plan Assessment: 83-year-old male with bronchiectasis and hypothyroid not on home oxygen coming in for worsening shortness of breath fevers chills generalized malaise he was diagnosed with COVID 4 weeks ago I discussed case with ED doctor accepted the admission for acute community-acquired pneumonia with acute hypoxemia with anticipated length of stay more than 2 midnights Sepsis secondary to community-acquired pneumonia Acute hypoxic respiratory failure Positive D-dimer, CT angio of the chest negative for acute PE. Patient found to have multifocal pneumonia Follow-up cultures Check urine Legionella Zosyn 3.375 g IV piggyback every 8 hours to cover Pseudomonas as patient has history of bronchiectasis Azithromycin 500 mg p.o. daily Supplemental oxygen as needed Supportive care Tylenol 650 mg p.o. as needed for fever 4 times daily Symptomatic control of cough with Mucinex DM twice daily as needed Resume home inhalers Continue with albuterol inhaler Droplet precautions secondary to positive COVID IV fluid hydration with normal saline 130 cc/h White count elevated 16.4, febrile temperature 100.8 F tachycardia Full code DVT prophylaxis Lovenox subcu daily 40 mg Chronic conditions Hypothyroid resume levothyroxine Blood work otherwise unremarkable Hemoglobin 12.4 Sodium 138 potassium 4 BUN 10 creatinine 0.5
[2023-08-17] MEDS: LEVOTHYROXINE 100 MCG TAB PO SCH (06:29)
[2023-08-17] MEDS: PANTOPRAZOLE 40 MG TABLET PO SCH (06:29)
[2023-08-17] MEDS ORDERED: IPRATROPIUM-ALBUTEROL 3 ML NEB INHALATION SCH (08:00)
[2023-08-17] MEDS: SYMBICORT 80-4.5 MCG INHALER INHALATION SCH (08:22)
[2023-08-17] MEDS: ALBUTEROL HFA INHALER INHALATION SCH (08:22)
--- NOTE | 2023-08-17 08:23 | XR ---
EXAMINATION TYPE: XR chest 1V portable DATE OF EXAM: 08/17/2023 COMPARISON: 08/16/2023 HISTORY: Cough TECHNIQUE: Single frontal view of the chest is obtained. FINDINGS: Right apical pleural thickening with bilateral lower lobe small right effusion. 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 Underlying COPD. No other ax. Heart size normal. Ather osclerotic change aorta. Degenerative changes spine, osteopenia and air throughout the shoulders. Nod ular density left upper lobe. IMPRESSION: 1. Bilateral areas of infiltrate are stable correlate for pneumonia. 2. stable right apical pleural thickening. 3. Vague nodular BE postinflammatory or infectious. Neoplastic process
[2023-08-17] MEDS: guaiFENesin-DM 600/30MG 1 EACH TAB.ER.12H PO PRN (08:51)
[2023-08-17] MEDS: AZITHROMYCIN 500 MG TAB PO SCH (08:51)
[2023-08-17] MEDS: ENOXAPARIN 40 MG/0.4 ML SYRINGE SQ SCH (08:51)
[2023-08-17] MEDS: NON FORMULARY DRUG (Acetylcysteine [Nac] 500 MG Capsule) PO SCH (10:16)
--- NOTE | 2023-08-17 12:53 | P.CNPUL ---
History of Present Illness Consult date: 08/17/23 Requesting physician: Bruno Sandoval Reason for consult: dyspnea, abnormal CXR/CT Chief complaint: Shortness of breath, cough, hemoptysis History of present illness: This is a very pleasant 83-year-old male patient with a known history of bronchiectasis, chronic obstructive pulmonary disease, former smoker, hearing disorder, hypertension, hypothyroidism, esophageal strictures with previous d ilatations. He presented here to the emergency room yesterday with complaints of increasing shortness of breath, cough, congestion and blood tinged sputum. Chest x-ray reveals moderate to marked interval worsening in the overall lung inflation pattern. Previously seen bibasilar right apical dense consolidation redemonstrated. CT angiogram was negative for pulmonary embolism. There is prominent coronary calcifications noted. Severe multifocal broad bilateral bronchopneumonia. White count 16.4. Hemoglobin 12.4. Platelets 266. D-dimer 0.91. Sodium 138. Potassium 4.0. Bicarb 28. BUN 10. Creatinine 0.58. Glucose 113. Influenza screen negative. RSV screen negative. COVID-19 screen positive. He is seen today in consultation on the regular medical floor. He is currently sitting up in bed. Awake and alert in no acute distress. He does have a loose productive cough of some blood-tinged sputum. He has been initiated on Zosyn and azithromycin. Continued on Symbicort and albuterol. Lovenox for DVT prophylaxis. Review of Systems REVIEW OF SYSTEMS: CONSTITUTIONAL: Denies any recent significant weight loss or weight gain. EYES: Denies change in vision. EARS, NOSE, MOUTH, THROAT: Denies headaches, denies sore throat. CARDIOVASCULAR: Denies chest pain, palpitations or syncopal episodes. RESPIRATORY: Positive for shortness of breath, cough, congestion, hemoptysis. GASTROINTESTINAL: Denies change in appetite, denies abdominal pain GENITOURINARY: Denies hematuria, denies infections. MUSKULOSKELETAL: Denies pain, denies swelling. INTEGUMENTARY: Denies rash, denies eczema. NEUROLOGICAL: Denies recent memory loss, no recent seizure activity. PSYCHIATRIC: Denies anxiety, denies depression. HEMATOLOGIC/LYMPHATIC: Denies anemia, denies enlarged lymph nodes. Past Medical History Past Medical History: COPD, GERD/Reflux, Hearing Disorder / Deafness, Hypertension, Pneumonia, Prostate Disorder, Respiratory Disorder, Thyroid Disorder Additional Past Medical History / Comment(s): Bronchiectasis, difficulty swallowing/narrowing of esophagus, hx sepsis secondary to Pneumonia 07/2017, bilateral hearing aid use. History of Any Multi-Drug Resistant Organisms: None Reported Past Surgical History: Orthopedic Surgery, Tonsillectomy Additional Past Surgical History / Comment(s): Thyroidectomy, right knee ar throscopy, EGD with dilation X2, bronchoscopy, colonoscopy, bilateral cataracts removed. Past Anesthesia/Blood Transfusion Reactions: No Reported Reaction Additional Past Anesthesia/Blood Transfusion Reaction / Comment(s): Aspirated food in lung after last EGD 11/2017. Past Psychological History: No Psychological Hx Reported Smoking Status: Former smoker Past Alcohol Use History: Occasional Past Drug Use History: None Reported - Past Family History Mother Family Medical History: No Reported History Medications and Allergies Home Medications Medication Instructions Recorded Confirmed Type Levothyroxine Sodium [Synthroid] 100 mcg PO DAILY 11/15/16 08/16/23 History Omeprazole [PriLOSEC] 20 mg PO DAILY 11/15/16 08/16/23 History Terazosin [Hytrin] 4 mg PO HS 08/05/17 08/16/23 History Acetylcysteine [Nac] 500 mg PO BID 08/16/23 08/16/23 History Albuterol Inhaler [Ventolin Hfa 1 - 2 puff INHALATION RT-Q6H PRN 08/16/23 08/16/23 History Inhaler] Cholecalciferol (Vitamin D3) 50 mcg PO DAILY 08/16/23 08/16/23 History [Vitamin D3 (50 Mcg = 2000 Iu)] Fluticasone Propion/Salmeterol 1 puff INHALATION RT-BID 08/16/23 08/16/23 History [Fluticasone-Salmeterol 250-50] Vitamin E (Dl,Tocopheryl Acet) 400 unit PO DAILY 08/16/23 08/16/23 History [Vitamin E (400 Iu = 180 mg)] guaiFENesin [Mucinex] 600 mg PO Q12H 08/16/23 08/16/23 History polyethylene glycoL 3350 [Miralax] 17 gm PO DAILY PRN 08/16/23 08/16/23 History Allergies Allergy/AdvReac Type Severity Reaction Status Date / Time No Known Allergies Allergy Verified 08/16/23 20:00 Physical Exam Vitals: Vital Signs Temp Pulse Pulse Resp BP BP Pulse Ox 08/17/23 08:28 94 L 08/17/23 07:20 98.1 F 64 17 94/53 93 L 08/17/23 02:02 98.1 F 63 17 95/58 97 08/17/23 01:03 64 25 H 95/53 95 08/16/23 23:55 70 24 101/54 95 08/16/23 23:00 76 22 92/52 96 08/16/23 21:45 98.3 F 85 22 105/57 94 L 08/16/23 20:34 99.3 F 82 22 111/60 95 08/16/23 17:00 106 H 22 132/78 96 08/16/23 16:08 107 H 20 133/74 97 08/16/23 16:05 24 08/16/23 15:51 100.8 F H 117 H 24 140/79 87 L Intake and Output 08/16/23 08/17/23 08/17/23 22:59 06:59 14:59 Output Total 500 Balance -500 Output: Urine 500 Other: Weight 63.503 kg 63.503 kg GENERAL EXAM: Alert, very pleasant 83-year-old male patient, on 2 L nasal cannula, fairly comfortable in no apparent distress. HEAD: Normocephalic. EYES: Normal reaction of pupils, equal size. NOSE: Clear with pink turbinates. THROAT: No erythema or exudates. NECK: No masses, no JVD. CHEST: No chest wall deformity. LUNGS: Equal air entry with bilateral scattered rhonchi, coarse crackles in the bases. CVS: S1 and S2 normal with no audible murmur, regular rhythm. ABDOMEN: No hepatosplenomegaly, normal bowel sounds, no guarding or rigidity. SPINE: No scoliosis or deformity SKIN: No rashes CENTRAL NERVOUS SYSTEM: No focal deficits, tone is normal in all 4 extremities. EXTREMITIES: There is no peripheral edema. No clubbing, no cyanosis. Peripheral pulses are intact. Results - Laboratory Findings CBC and BMP: 08/16/23 16:02 08/16/23 16:02 PT/INR, D-dimer PT 11.3 sec (10.0-12.5) 08/16/23 16:02 INR 1.0 (<1.2) 08/16/23 16:02 D-Dimer 0.91 mg/L FEU (<0.60) H 08/16/23 16:43 Abnormal lab findings: Abnormal Labs 08/16/23 08/16/23 08/16/23 16:02 16:02 16:02 WBC 16.4 H RBC 4.09 L Hgb 12.4 L Hct 37.9 L Neutrophils # 14.2 H D-Dimer Creatinine 0.58 L Glucose 113 H Ur Specific [place] Urine Blood Urine Mucus SARS-CoV-2 (PCR) Detected A 08/16/23 08/16/23 16:43 20:08 WBC RBC Hgb Hct Neutrophils # D-Dimer 0.91 H Creatinine Glucose Ur Specific [place] 1.048 H Urine Blood Small H Urine Mucus Rare H SARS-CoV-2 (PCR) - Diagnostic Findings Chest x-ray: image reviewed CT scan - chest: image reviewed Assessment and Plan Assessment: Acute hypoxemic respiratory failure secondary to acute community-acquired pneumonia, bronchiectasis and COVID-19 infection Hemoptysis secondary to above Acute COVID-19 infection History of bronchiectasis History of esophageal stricture status post dilatation x 2 History of pulmonary fibrosis Hypothyroidism Gastroesophageal reflux disease Plan: The patient was seen and evaluated CT angiogram, chest x-ray, labs and medications reviewed Continue Zosyn and azithromycin Check a procalcitonin Obtain a sputum sample Continue bronchodilators Titrate the FiO2 as tolerated We will continue to follow and make further recommendations based on his clinical status I have personally seen and examined the patient, performed the documentation and the assessment and plan as written. Number of minutes spent on the visit: 20.
[2023-08-17] MEDS: dexAMETHasone 2 MG TAB PO SCH (14:24)
[2023-08-17] MEDS ORDERED: guaiFENesin 600 MG TABLET.ER PO SCH (16:45)
--- NOTE | 2023-08-17 16:58 | P.PN ---
Subjective Progress Note Date: 08/17/23 (delayed charting seen at 1005) Patient is an 83-year-old male with bronchiectasis not requiring home oxygen, COVID positivity 4 weeks ago with presistent positive results, hypertension, GERD, hypothyroidism, and multiple other comorbid conditions who presented to the ER with complaints of weakness and worsening shortness of breath. In the emergency department he underwent extensive evaluation. He was found to be febrile with a temperature of 100.8 and hypoxic with an O2 sat of 87% on room air. Laboratory analysis was remarkable for white blood cell count of 16.4. He did test positive for COVID-19. Chest x-ray demonstrated moderate interval worsening of overall lung inflation pattern. This was followed with CTA of the chest which demonstrated severe multifocal bilateral bronchial pneumonia. Patient was admitted and started on IV fluids and Zosyn along with Decadron. Pulmonary was consulted. Patient seen and examined at bedside. He is feeling much better than yesterday. He is frustrated that he has to be on inhalers and not nebulized breathing treatments. Typically at home he uses a nebulizer followed with a percussion vest to his bronchiectasis and this works well to help with sputum production. His breathing is better. Vital signs reviewed General: nontoxic, no distress, appears at stated age Cardiovascular: S1S2 reg, no murmur Lungs: Coarse breath sounds bilateral, no rhonchi, no rales , no accessory muscle use Abdominal: soft, nontender to palpation, no guarding Ext: no gross muscle atrophy, no edema b/l lower extremities, no contractures Neuro: CN II-XI grossly intact, no focal neuro deficits Psych: Alert, oriented, appropriate affect Assessment/Plan: Bilateral pneumonia, possible gram-negative in the setting of bronchiectasis Acute hypoxic respiratory failure Suspect persistently positive COVID, possible acute infection Pulmonary fibrosis Sepsis -Continue with Zosyn, await sputum culture -Add chest physiotherapy -Pulmonary G note reviewed: Continue with Zosyn and Zithromax, check procalcitonin. -Zithromax 500 mg oral daily dose #1 of 3 -Zosyn 3.375 g IV piggyback every 8 hours day #1 -Symbicort 160-4.52 puffs twice daily, albuterol 2 puffs 4 times daily, add albuterol 2 puffs every 2 hours as needed for shortness of breath -Normal saline decreased to 75 cc/h -Resume home Mucinex 600 mg twice daily, hospital does not stock acetylcysteine Chronic: Hypothyroidism GERD History of esophageal stricture requiring dilatation x 2 Imaging: As per HPI Data Review: As per HPI DVT prophylaxis: Lovenox Anticipated discharge date: Pending clinical course Anticipated discharge place: Pending clinical course This dictation was prepared using [employer] voice recognition software. Though every attempt is made to correct errors during dictation some may still exist. Objective - Vital Signs Vital signs: Vital Signs Temp 98.2 F 08/17/23 14:00 Pulse 79 08/17/23 14:00 Resp 18 08/17/23 14:00 BP 96/48 08/17/23 14:00 Pulse Ox 93 L 08/17/23 14:00 FiO2 Intake & Output 08/16/23 08/17/23 08/17/23 18:59 06:59 18:59 Output Total 500 Balance -500 Weight 63.503 kg 63.503 kg Output: Urine 500 - Labs CBC & Chem 7: 08/16/23 16:02 08/16/23 16:02 Labs: Abnormal Lab Results - Last 24 Hours (Table) 08/16/23 08/16/23 08/16/23 Range/Units 16:02 16:02 16:43 D-Dimer 0.91 H (<0.60) mg/L FEU Creatinine 0.58 L (0.66-1.25) mg/dL Glucose 113 H (74-99) mg/dL Ur Specific [place] (1.001-1.035) Urine Blood (Negative) Urine Mucus (None) /hpf SARS-CoV-2 (PCR) Detected A (Not Detectd) 08/16/23 Range/Units 20:08 D-Dimer (<0.60) mg/L FEU Creatinine (0.66-1.25) mg/dL Glucose (74-99) mg/dL Ur Specific [place] 1.048 H (1.001-1.035) Urine Blood Small H (Negative) Urine Mucus Rare H (None) /hpf SARS-CoV-2 (PCR) (Not Detectd) Microbiology - Last 24 Hours (Table) 08/16/23 21:30 Gram Stain - Preliminary Sputum
[2023-08-17] MEDS: guaiFENesin 600 MG TABLET.ER PO SCH (17:36)
[2023-08-17] MEDS: SYMBICORT 160-4.5 MCG INHALER INHALATION SCH (21:36)
[2023-08-17] MEDS: DOXAZOSIN 4 MG TAB PO SCH (21:54)
[2023-08-17] MEDS: polyethylene glycoL 3350 17 GM POWD.PACK PO STA (22:33)
[2023-08-18 11:11] LABS: HCT 34.1 % (39.0-53.0); HGB 10.5 gm/dL (13.0-17.5); MCH 28.9 pg (25.0-35.0); MCHC 30.8 g/dL (31.0-37.0); MCV 93.8 fL (80.0-100.0); Mean Platelet Volume 7.5; Platelet Count 227 k/uL (150-450); RBC 3.63 m/uL (4.30-5.90); RDW 13.3 % (11.5-15.5)
[2023-08-18 11:25] LABS: African American GFR (CKD) >90 (>60 ml/min/1.73 sqM); Anion Gap 4 mmol/L; Blood Urea Nitrogen 10 mg/dL (9-20); Calcium 9.1 mg/dL (8.4-10.2); Carbon Dioxide 27 mmol/L (22-30); Chloride 107 mmol/L (98-107); Glucose 185 mg/dL (74-99); Non-African American GFR(CKD) >90 (>60 ml/min/1.73 sqM); Potassium 3.9 mmol/L (3.5-5.1); Sodium 138 mmol/L (137-145)
--- NOTE | 2023-08-18 11:42 | P.PN ---
Subjective Progress Note Date: 08/18/23 This is a very pleasant 83-year-old male patient with a known history of bronchiectasis, chronic obstructive pulmonary disease, former smoker, hearing disorder, hypertension, hypothyroidism, esophageal strictures with previous dilatations. He presented here to the emergency room yesterday with complaints of increasing shortness of breath, cough, congestion and blood tinged sputum. Chest x-ray reveals moderate to marked interval worsening in the overall lung inflation pattern. Previously seen bibasilar right apical dense consolidation redemonstrated. CT angiogram was negative for pulmonary embolism. There is prominent coronary calcifications noted. Severe multifocal broad bilateral bronchopneumonia. White count 16.4. Hemoglobin 12.4. Platelets 266. D-dimer 0.91. Sodium 138. Potassium 4.0. Bicarb 28. BUN 10. Creatinine 0.58. Glucose 113. Influenza screen negative. RSV screen negative. COVID-19 screen positive. He is seen today in consultation on the regular medical floor. He is currently sitting up in bed. Awake and alert in no acute distress. He does have a loose productive cough of some blood-tinged sputum. He has been initiated on Zosyn and azithromycin. Continued on Symbicort and albuterol. Lovenox for DVT prophylaxis. The patient is seen today August 18, 2023 in follow-up the regular medical floor. He is awake and alert in no acute distress. Currently sitting up in bed. He can continues with a loose nonproductive cough. He is working with the flutter valve. He is to have chest physiotherapy. Maintaining good O2 saturations in the 90s on 2 L/min per nasal cannula. No IV fluids. He is continued on Zosyn and azithromycin. Procalcitonin was 2.03. Culture pending. Sputum culture pending. White count 7.0. Hemoglobin 10.5. Platelets 227. Sodium 138. Potassium 3.9. Bicarb 27. BUN 10. Creatinine 0.50. He is continued on albuterol HFA, Symbicort, Decadron. Lovenox for DVT prophylaxis. Remains on Mucinex. Objective - Vital Signs Vital signs: Vital Signs Temp 97.9 F 08/18/23 07:41 Pulse 78 08/18/23 08:00 Resp 17 08/18/23 08:00 BP 129/74 08/18/23 07:41 Pulse Ox 95 08/18/23 09:03 FiO2 Intake & Output 08/17/23 08/18/23 08/18/23 18:59 06:59 18:59 Output Total 400 550 Balance -400 -550 Output: Urine 400 550 Other: Voiding Method Toilet - Exam GENERAL EXAM: Alert, pleasant, thin 83-year-old male, on 2 L nasal cannula, fairly comfortable in no apparent distress. HEAD: Normocephalic. EYES: Normal reaction of pupils, equal size. NOSE: Clear with pink turbinates. THROAT: No erythema or exudates. NECK: No masses, no JVD. CHEST: No chest wall deformity. LUNGS: Equal air entry with bilateral scattered rhonchi s. CVS: S1 and S2 normal with no audible murmur, regular rhythm. ABDOMEN: No hepatosplenomegaly, normal bowel sounds, no guarding or rigidity. SPINE: No scoliosis or deformity SKIN: No rashes CENTRAL NERVOUS SYSTEM: No focal deficits, tone is normal in all 4 extremities. EXTREMITIES: There is no peripheral edema. No clubbing, no cyanosis. Periphera l pulses are intact. - Labs CBC & Chem 7: 08/18/23 10:50 08/18/23 10:50 Labs: Abnormal Lab Results - Last 24 Hours (Table) 08/17/23 08/18/23 08/18/23 Range/Units 12:40 10:50 10:50 RBC 3.63 L (4.30-5.90) m/uL Hgb 10.5 L (13.0-17.5) gm/dL Hct 34.1 L (39.0-53.0) % MCHC 30.8 L (31.0-37.0) g/dL Creatinine 0.50 L (0.66-1.25) mg/dL Glucose 185 H (74-99) mg/dL Procalcitonin 2.03 H (0.02-0.09) ng/mL Microbiology - Last 24 Hours (Table) 08/16/23 21:08 Blood Culture - Preliminary Blood 08/16/23 16:00 Blood Culture - Preliminary Blood 08/16/23 21:30 Gram Stain - Preliminary Sputum Assessment and Plan Assessment: Acute hypoxemic respiratory failure secondary to acute community-acquired pneumonia, bronchiectasis and COVID-19 infection Hemoptysis secondary to above Acute COVID-19 infection History of bronchiectasis History of esophageal stricture status post dilatation x 2 History of pulmonary fibrosis Hypothyroidism Gastroesophageal reflux disease Plan: The patient was seen and evaluated Labs and medications reviewed Continue Zosyn and discontinue azithromycin Continue Mucinex, flutter valve, chest physiotherapy Continue bronchodilators Titrate the FiO2 as tolerated We will continue to follow I have personally seen and examined the patient, performed the documentation and the assessment and plan as written. Number of minutes spent on the visit: 10.
--- NOTE | 2023-08-18 15:39 | P.PN ---
Subjective Progress Note Date: 08/18/23 (delayed charting seen at 0915) Patient is an 83-year-old male with bronchiectasis not requiring home oxygen, COVID positivity 4 weeks ago with presistent positive results, hypertension, GERD, hypothyroidism, and multiple other comorbid conditions who presented to the ER with complaints of weakness and worsening shortness of breath. In the emergency department he underwent extensive evaluation. He was found to be febrile with a temperature of 100.8 and hypoxic with an O2 sat of 87% on room air. Laboratory analysis was remarkable for white blood cell count of 16.4. He did test positive for COVID-19. Chest x-ray demonstrated moderate interval worsening of overall lung inflation pattern. This was followed with CTA of the chest which demonstrated severe multifocal bilateral bronchial pneumonia. Patient was admitted and started on IV fluids and Zosyn along with Decadron. Pulmonary was consulted. Patient seen and examined at bedside. He is concerned as he is not producing as much sputum as he typically does at home with his percussion vest and breathing treatments. He overall feels as though his breathing is slightly better than before. Vital signs reviewed General: nontoxic, no distress, appears at stated age Cardiovascular: S1S2 reg, no murmur Lungs: Coarse breath sounds bilateral, no rhonchi, no rales , no accessory muscle use Abdominal: soft, nontender to palpation, no guarding Ext: no gross muscle atrophy, no edema b/l lower extremities, no contractures Neuro: CN II-XI grossly intact, no focal neuro deficits Psych: Alert, oriented, appropriate affect Assessment/Plan: Bilateral pneumonia, possible gram-negative in the setting of bronchiectasis Acute hypoxic respiratory failure Suspect persistently positive COVID, possible acute infection Pulmonary fibrosis Sepsis - await sputum culture -Case discussed with Dr. Padilla. He does agree with need for increased CPT. This was also discussed with respiratory therapy and we will proceed with manual CPT. Patient will bring in home N-acetylcysteine. -Zithromax 500 mg oral daily dose #2 of 3 -Zosyn 3.375 g IV piggyback every 8 hours day #2 -Symbicort 160-4.52 puffs twice daily, albuterol 2 puffs 4 times daily, add albuterol 2 puffs every 2 hours as needed for shortness of breath -discontinue fluids - Mucinex 600 mg twice daily Anemia - suspect due to IV fluids - Repeat CBC in AM Chronic: Hypothyroidism GERD History of esophageal stricture requiring dilatation x 2 Imaging: None new Data Review: Labs reviewed today include CBC and basic metabolic profile which are remarkable for hemoglobin of 10.5. Procalcitonin came back positive at 2.03. -Await sputum cultures -Blood cultures negative x 24 hours DVT prophylaxis: Lovenox Anticipated discharge date: Pending clinical course Anticipated discharge place: Pending clinical course This dictation was prepared using [employer] voice recognition software. Though every attempt is made to correct errors during dictation some may still exist. Objective - Vital Signs Vital signs: Vital Signs Temp 97.9 F 08/18/23 14:00 Pulse 72 08/18/23 14:00 Resp 16 08/18/23 14:00 BP 121/66 08/18/23 14:00 Pulse Ox 96 08/18/23 14:00 FiO2 Intake & Output 08/17/23 08/18/23 08/18/23 18:59 06:59 18:59 Output Total 400 550 Balance -400 -550 Output: Urine 400 550 Other: Voiding Method Toilet - Labs CBC & Chem 7: 08/18/23 10:50 08/18/23 10:50 Labs: Abnormal Lab Results - Last 24 Hours (Table) 08/17/23 08/18/23 08/18/23 Range/Units 12:40 10:50 10:50 RBC 3.63 L (4.30-5.90) m/uL Hgb 10.5 L (13.0-17.5) gm/dL Hct 34.1 L (39.0-53.0) % MCHC 30.8 L (31.0-37.0) g/dL Creatinine 0.50 L (0.66-1.25) mg/dL Glucose 185 H (74-99) mg/dL Procalcitonin 2.03 H (0.02-0.09) ng/mL Microbiology - Last 24 Hours (Table) 08/16/23 21:08 Blood Culture - Preliminary Blood 08/16/23 16:00 Blood Culture - Preliminary Blood 08/16/23 21:30 Gram Stain - Preliminary Sputum
[2023-08-18] MEDS: ACETAMINOPHEN TAB 325 MG TAB PO PRN (20:58)
[2023-08-18] MEDS: diphenhydrAMINE 25 MG CAP PO PRN (20:58)
[2023-08-19 06:25] LABS: HCT 33.2 % (39.0-53.0); MCHC 33.2 g/dL (31.0-37.0); MCV 93.3 fL (80.0-100.0); Mean Platelet Volume 7.3; Platelet Count 238 k/uL (150-450); RBC 3.55 m/uL (4.30-5.90); RDW 13.4 % (11.5-15.5); WBC 8.3 k/uL (3.8-10.6)
[2023-08-19 06:39] LABS: African American GFR (CKD) >90 (>60 ml/min/1.73 sqM); Anion Gap 2 mmol/L; Blood Urea Nitrogen 9 mg/dL (9-20); Carbon Dioxide 29 mmol/L (22-30); Chloride 107 mmol/L (98-107); Glucose 80 mg/dL (74-99); Non-African American GFR(CKD) >90 (>60 ml/min/1.73 sqM); Potassium 3.9 mmol/L (3.5-5.1); Sodium 138 mmol/L (137-145)
--- NOTE | 2023-08-19 11:25 | P.PN ---
Subjective Progress Note Date: 08/19/23 This is a very pleasant 83-year-old male patient with a known history of bronchiectasis, chronic obstructive pulmonary disease, former smoker, hearing disorder, hypertension, hypothyroidism, esophageal strictures with previous dilatations. He presented here to the emergency room yesterday with complaints of increasing shortness of breath, cough, congestion and blood tinged sputum. Chest x-ray reveals moderate to marked interval worsening in the overall lung inflation pattern. Previously seen bibasilar right apical dense consolidation redemonstrated. CT angiogram was negative for pulmonary embolism. There is prominent coronary calcifications noted. Severe multifocal broad bilateral bronchopneumonia. White count 16.4. Hemoglobin 12.4. Platelets 266. D-dimer 0.91. Sodium 138. Potassium 4.0. Bicarb 28. BUN 10. Creatinine 0.58. Glucose 113. Influenza screen negative. RSV screen negative. COVID-19 screen positive. He is seen today in consultation on the regular medical floor. He is currently sitting up in bed. Awake and alert in no acute distress. He does have a loose productive cough of some blood-tinged sputum. He has been initiated on Zosyn and azithromycin. Continued on Symbicort and albuterol. Lovenox for DVT prophylaxis. The patient is seen today August 18, 2023 in follow-up the regular medical floor. He is awake and alert in no acute distress. Currently sitting up in bed. He can continues with a loose nonproductive cough. He is working with the flutter valve. He is to have chest physiotherapy. Maintaining good O2 saturations in the 90s on 2 L/min per nasal cannula. No IV fluids. He is continued on Zosyn and azithromycin. Procalcitonin was 2.03. Culture pending. Sputum culture pending. White count 7.0. Hemoglobin 10.5. Platelets 227. Sodium 138. Potassium 3.9. Bicarb 27. BUN 10. Creatinine 0.50. He is continued on albuterol HFA, Symbicort, Decadron. Lovenox for DVT prophylaxis. Remains on Mucinex. The patient is seen today August 19, 2023 in follow-up on the regular medical floor. He is sitting up in bed. Awake and alert in no acute distress. He continues with a loose productive cough. Sputum culture is positive for Pseudomonas species. Blood culture showing no growth. White count 8.3. Hemoglobin 11.0. Platelets 238. Sodium 138. Potassium 3.9. Bicarb 29. BUN 9. Creatinine 0.51. Glucose 80. Procalcitonin 2.03. He remains on Zosyn. Continued on Decadron. Continued on bronchodilators. Lovenox for DVT prophylaxis. Objective - Vital Signs Vital signs: Vital Signs Temp 97.6 F 08/19/23 08:00 Pulse 64 08/19/23 08:00 Resp 16 08/19/23 08:00 BP 128/69 08/19/23 08:00 Pulse Ox 96 08/19/23 08:00 FiO2 Intake & Output 08/18/23 08/19/23 08/19/23 18:59 06:59 18:59 Intake Total 980 990 Balance 980 990 Intake: Intake, IV Titration 980 490 Amount Piperacillin-Tazobactam 3 200 100 .375 gm In Sodium Chloride 0.9% 100 ml @ 25 mls/hr IVPB Q8HR [facility] Rx# :[id number] Sodium Chloride 0.9% 1, 780 390 000 ml @ 130 mls/hr IV . Q7H42M [facility] Rx#:[id number] Oral 500 Other: Voiding Method Toilet Toilet # Voids 3 - Exam GENERAL EXAM: Alert, pleasant, 83-year-old male, on 2 L nasal cannula, comfortable in no apparent distress. HEAD: Normocephalic. EYES: Normal reaction of pupils, equal size. NOSE: Clear with pink turbinates. THROAT: No erythema or exudates. NECK: No masses, no JVD. CHEST: No chest wall deformity. LUNGS: Equal air entry with bilateral scattered rhonchi. CVS: S1 and S2 normal with no audible murmur, regular rhythm. ABDOMEN: No hepatosplenomegaly, normal bowel sounds, no guarding or rigidity. SPINE: No scoliosis or deformity SKIN: No rashes CENTRAL NERVOUS SYSTEM: No focal deficits, tone is normal in all 4 extremities. EXTREMITIES: There is no peripheral edema. No clubbing, no cyanosis. Peripheral pulses are intact. - Labs CBC & Chem 7: 08/19/23 06:15 08/19/23 06:15 Labs: Abnormal Lab Results - Last 24 Hours (Table) 08/18/23 08/19/23 08/19/23 Range/Units 10:50 06:15 06:15 RBC 3.55 L (4.30-5.90) m/uL Hgb 11.0 L (13.0-17.5) gm/dL Hct 33.2 L (39.0-53.0) % Creatinine 0.50 L 0.51 L (0.66-1.25) mg/dL Glucose 185 H (74-99) mg/dL Microbiology - Last 24 Hours (Table) 08/16/23 21:30 Gram Stain - Final Sputum Sputum Culture - Final Pseudomonas spec 08/16/23 21:08 Blood Culture - Preliminary Blood 08/16/23 16:00 Blood Culture - Preliminary Blood Assessment and Plan Assessment: Acute hypoxemic respiratory failure secondary to acute community-acquired pneumonia, bronchiectasis and COVID-19 infection. Sputum culture showing Pseudomonas species Hemoptysis secondary to above Acute COVID-19 infection History of bronchiectasis, has a home percussion vest History of esophageal stricture status post dilatation x 2 History of pulmonary fibrosis Hypothyroidism Gastroesophageal reflux disease Plan: The patient was seen and evaluated Labs and medications reviewed Continue the current treatment plan Titrate the FiO2 as tolerated Increase his activity as tolerated Continue Mucinex and the flutter valve Family to bring in his percussion vest from home We will continue to follow I have personally seen and examined the patient, performed the documentation and the assessment and plan as written. Number of minutes spent on the visit: 10.
--- NOTE | 2023-08-19 13:10 | P.PN ---
Subjective Progress Note Date: 08/19/23 (deleyed charting seen at 1015) Patient is an 83-year-old male with bronchiectasis not requiring home oxygen, COVID positivity 4 weeks ago with presistent positive results, hypertension, GERD, hypothyroidism, and multiple other comorbid conditions who presented to the ER with complaints of weakness and worsening shortness of breath. In the emergency department he underwent extensive evaluation. He was found to be febrile with a temperature of 100.8 and hypoxic with an O2 sat of 87% on room air. Laboratory analysis was remarkable for white blood cell count of 16.4. He did test positive for COVID-19. Chest x-ray demonstrated moderate interval worsening of overall lung inflation pattern. This was followed with CTA of the chest which demonstrated severe multifocal bilateral bronchial pneumonia. Patient was admitted and started on IV fluids and Zosyn along with Decadron. Pulmonary was consulted. Patient seen and examined at bedside. He states he was able to get more sputum help with the CPT machine. He denies any nausea or vomiting. We discussed that his cultures have started to reveal Pseudomonas. He denies any history of pseudomonal infection in the past. Vital signs reviewed General: nontoxic, no distress, appears at stated age Cardiovascular: S1S2 reg, no murmur Lungs: Coarse breath sounds bilateral, no rhonchi, no rales , no accessory muscle use Abdominal: soft, nontender to palpation, no guarding Ext: no gross muscle atrophy, no edema b/l lower extremities, no contractures Neuro: CN II-XI grossly intact, no focal neuro deficits Psych: Alert, oriented, appropriate affect Assessment/Plan: Bilateral pneumonia, pseudomonal Acute hypoxic respiratory failure Suspect persistently positive COVID Pulmonary fibrosis Sepsis Sputum culture Pseudomonas species - unable to furter identify pseudomonas on sputum culture, will re-send new spu britta culture. -Zithromax 3 days completed -Zosyn 3.375 g IV piggyback every 8 hours day #4 -Symbicort 160-4.52 puffs twice daily, albuterol 2 puffs 4 times daily, add albuterol 2 puffs every 2 hours as needed for shortness of breath - Mucinex 600 mg twice daily - family will bring in percussion vest Anemia, stable - due to IV fluids - Repeat CBC in AM Chronic: Hypothyroidism GERD History of esophageal stricture requiring dilatation x 2 Imaging: None new Data Review: Labs reviewed from today include CBC and basic metabolic profile which are rem arkable for hemoglobin of 11 DVT prophylaxis: Lovenox Anticipated discharge date: Pending clinical course Anticipated discharge place: Pending clinical course This dictation was prepared using [employer] voice recognition software. Though every attempt is made to correct errors during dictation some may still exist. Objective - Vital Signs Vital signs: Vital Signs Temp 97.6 F 08/19/23 08:00 Pulse 64 08/19/23 08:00 Resp 16 08/19/23 08:00 BP 128/69 08/19/23 08:00 Pulse Ox 96 08/19/23 08:00 FiO2 Intake & Output 08/18/23 08/19/23 08/19/23 18:59 06:59 18:59 Intake Total 980 990 Balance 980 990 Intake: Intake, IV Titration 980 490 Amount Piperacillin-Tazobactam 3 200 100 .375 gm In Sodium Chloride 0.9% 100 ml @ 25 mls/hr IVPB Q8HR [facility] Rx# :[id number] Sodium Chloride 0.9% 1, 780 390 000 ml @ 130 mls/hr IV . Q7H42M [facility] Rx#:[id number] Oral 500 Other: Voiding Method Toilet Toilet # Voids 3 - Labs CBC & Chem 7: 08/19/23 06:15 08/19/23 06:15 Labs: Abnormal Lab Results - Last 24 Hours (Table) 08/19/23 08/19/23 Range/Units 06:15 06:15 RBC 3.55 L (4.30-5.90) m/uL Hgb 11.0 L (13.0-17.5) gm/dL Hct 33.2 L (39.0-53.0) % Creatinine 0.51 L (0.66-1.25) mg/dL Microbiology - Last 24 Hours (Table) 08/16/23 21:30 Gram Stain - Final Sputum Sputum Culture - Final Pseudomonas spec 08/16/23 21:08 Blood Culture - Preliminary Blood 08/16/23 16:00 Blood Culture - Preliminary Blood
[2023-08-19] MEDS: polyethylene glycoL 3350 17 GM POWD.PACK PO SCH (16:17)
--- NOTE | 2023-08-20 10:40 | P.PN ---
Subjective Progress Note Date: 08/20/23 Patient is an 83-year-old male with bronchiectasis not requiring home oxygen, COVID positivity 4 weeks ago with presistent positive results, hypertension, GERD, hypothyroidism, and multiple other comorbid conditions who presented to the ER with complaints of weakness and worsening shortness of breath. In the emergency department he underwent extensive evaluation. He was found to be febrile with a temperature of 100.8 and hypoxic with an O2 sat of 87% on room air. Laboratory analysis was remarkable for white blood cell count of 16.4. He did test positive for COVID-19. Chest x-ray demonstrated moderate interval worsening of overall lung inflation pattern. This was followed with CTA of the chest which demonstrated severe multifocal bilateral bronchial pneumonia. Patient was admitted and started on IV fluids and Zosyn along with Decadron. Pulmonary was consulted. He was maintained on bronchodilators and steroids. His sputum grew pseudomonas. Patient seen and examined at bedside. He is frustrated as he is not getting up as much sputum as he does at home with his nebulizer and then percussion vest. He did bring his percussion vest and. He feels almost like he is getting worse instead of better being here. He is asking for expedited discharge if he cannot use his nebulizers over the inhalers. He is eating and drinking well. He is going to the bathroom. Vital signs reviewed General: nontoxic, no distress, appears at stated age Cardiovascular: S1S2 reg, no murmur Lungs: Coarse breath sounds bilateral, no rhonchi, no rales , no accessory muscle use Abdominal: soft, nontender to palpation, no guarding Ext: no gross muscle atrophy, no edema b/l lower extremities, no contractures Neuro: CN II-XI grossly intact, no focal neuro deficits Psych: Alert, oriented, appropriate affect Assessment/Plan: Bilateral pneumonia, pseudomonal Acute hypoxic respiratory failure Suspect persistently positive COVID Pulmonary fibrosis Sepsis Sputum culture Pseudomonas species - unable to further identify pseudomonas on sputum culture, Await repeat sputum culture -Repeat chest x-ray in a.m. -Case discussed with Dr. Lowe. He believes we should continue to monitor the patient as he likely has Pseudomonas pneumonia. They were unable to obtain GELA's for sputum sample and the second has been set down and is pending. He will consider bronchoscopy. -Increase guaifenesin to 1200 mg twice daily -Zithromax 3 days completed -Zosyn 3.375 g IV piggyback every 8 hours day #5 -Symbicort 160-4.52 puffs twice daily, albuterol 2 puffs 4 times daily, add a lbuterol 2 puffs every 2 hours as needed for shortness of breath - Continue with percussion vest Anemia, stable - Repeat CBC in AM Chronic: Hypothyroidism GERD History of esophageal stricture requiring dilatation x 2 Imaging: None new Data Review: No new lab work today. Will repeat lab work in AM. DVT prophylaxis: Lovenox Anticipated discharge date: Pending clinical course Anticipated discharge place: Pending clinical course This dictation was prepared using [employer] voice recognition software. Though every attempt is made to correct errors during dictation some may still exist. Objective - Vital Signs Vital signs: Vital Signs Temp 97.6 F 08/20/23 07:08 Pulse 61 08/20/23 07:08 Resp 18 08/20/23 07:08 BP 147/80 08/20/23 07:08 Pulse Ox 98 08/20/23 07:08 FiO2 Intake & Output 08/19/23 08/20/23 08/20/23 18:59 06:59 18:59 Intake Total 700 Balance 700 Intake: Intake, IV Titration 200 Amount Piperacillin-Tazobactam 3 200 .375 gm In Sodium Chloride 0.9% 100 ml @ 25 mls/hr IVPB Q8HR [facility] Rx# :[id number] Oral 500 Other: # Voids 4 3 - Labs CBC & Chem 7: 08/19/23 06:15 08/19/23 06:15 Labs: Microbiology - Last 24 Hours (Table) 08/19/23 16:51 Gram Stain - Preliminary Sputum 08/16/23 21:08 Blood Culture - Preliminary Blood 08/16/23 16:00 Blood Culture - Preliminary Blood 08/16/23 21:30 Gram Stain - Final Sputum Sputum Culture - Final Pseudomonas spec
--- NOTE | 2023-08-20 15:19 | P.PN ---
Subjective Progress Note Date: 08/20/23 This is a very pleasant 83-year-old male patient with a known history of bronchiectasis, chronic obstructive pulmonary disease, former smoker, hearing disorder, hypertension, hypothyroidism, esophageal strictures with previous dilatations. He presented here to the emergency room yesterday with complaints of increasing shortness of breath, cough, congestion and blood tinged sputum. Chest x-ray reveals moderate to marked interval worsening in the overall lung inflation pattern. Previously seen bibasilar right apical dense consolidation redemonstrated. CT angiogram was negative for pulmonary embolism. There is prominent coronary calcifications noted. Severe multifocal broad bilateral bronchopneumonia. White count 16.4. Hemoglobin 12.4. Platelets 266. D-dimer 0.91. Sodium 138. Potassium 4.0. Bicarb 28. BUN 10. Creatinine 0.58. Glucose 113. Influenza screen negative. RSV screen negative. COVID-19 screen positive. He is seen today in consultation on the regular medical floor. He is currently sitting up in bed. Awake and alert in no acute distress. He does have a loose productive cough of some blood-tinged sputum. He has been initiated on Zosyn and azithromycin. Continued on Symbicort and albuterol. Lovenox for DVT prophylaxis. The patient is seen today August 18, 2023 in follow-up the regular medical floor. He is awake and alert in no acute distress. Currently sitting up in bed. He can continues with a loose nonproductive cough. He is working with the flutter valve. He is to have chest physiotherapy. Maintaining good O2 saturations in the 90s on 2 L/min per nasal cannula. No IV fluids. He is continued on Zosyn and azithromycin. Procalcitonin was 2.03. Culture pending. Sputum culture pending. White count 7.0. Hemoglobin 10.5. Platelets 227. Sodium 138. Potassium 3.9. Bicarb 27. BUN 10. Creatinine 0.50. He is continued on albuterol HFA, Symbicort, Decadron. Lovenox for DVT prophylaxis. Remains on Mucinex. The patient is seen today August 19, 2023 in follow-up on the regular medical floor. He is sitting up in bed. Awake and alert in no acute distress. He continues with a loose productive cough. Sputum culture is positive for Pseudomonas species. Blood culture showing no growth. White count 8.3. Hemoglobin 11.0. Platelets 238. Sodium 138. Potassium 3.9. Bicarb 29. BUN 9. Creatinine 0.51. Glucose 80. Procalcitonin 2.03. He remains on Zosyn. Continued on Decadron. Continued on bronchodilators. Lovenox for DVT prophylaxis. On today's evaluation of 08/20/2023, the patient is being seen for a follow- up.The he is known to us from office visits. The patient has extensive bronchiectatic changes in lung base bilaterally and the patient was found to have Pseudomonas species in his sputum Gram stain and culture. Note that he was also infected with COVID-19 in early June. He is unable to bring up much of sputum. He has a vest and is undergoing vest therapy for mobility of his respiratory secretions. He remains on IV Zosyn. No fever or chills.Oxygenation is stable and the patient is on 2 L of oxygen by nasal cannula with a pulse ox of 98%. He was transitioned to room air oxygen. His current pulse ox 96% he is afebrile. He remains on Lovenox for DVT prophylaxis. He is completing also a course of Decadron 6 mg p.o. daily. No chest pain. No pleurisy. No hemoptysis. CAT scan of the chest was reviewed and there is extensive bronchiectatic changes in lung base bilaterally and at the same time the patient has multifocal bilateral pneumonia worse in the lower lobes bilaterally. The plan is to undergo bronchoscopy for therapeutic airway suctioning and a bronchial lavage. Of concern is the Pseudomonas species identified in the sputum. Objective - Vital Signs Vital signs: Vital Signs Temp 97.6 F 08/20/23 07:08 Pulse 61 08/20/23 07:08 Resp 18 08/20/23 07:08 BP 147/80 08/20/23 07:08 Pulse Ox 98 08/20/23 07:08 FiO2 Intake & Output 08/19/23 08/20/23 08/20/23 18:59 06:59 18:59 Intake Total 700 Balance 700 Intake: Intake, IV Titration 200 Amount Piperacillin-Tazobactam 3 200 .375 gm In Sodium Chloride 0.9% 100 ml @ 25 mls/hr IVPB Q8HR [facility] Rx# :[id number] Oral 500 Other: # Voids 4 3 - Exam GENERAL EXAM: Alert, pleasant, 83-year-old male, on 2 L nasal cannula, comfortable in no apparent distress. HEAD: Normocephalic. EYES: Normal reaction of pupils, equal size. NOSE: Clear with pink turbinates. THROAT: No erythema or exudates. NECK: No masses, no JVD. CHEST: No chest wall deformity. LUNGS: Equal air entry with bilateral scattered rhonchi. CVS: S1 and S2 normal with no audible murmur, regular rhythm. ABDOMEN: No hepatosplenomegaly, normal bowel sounds, no guarding or rigidity. SPINE: No scoliosis or deformity SKIN: No rashes CENTRAL NERVOUS SYSTEM: No focal deficits, tone is normal in all 4 extremities. EXTREMITIES: There is no peripheral edema. No clubbing, no cyanosis. Peripheral pulses are intact. - Labs CBC & Chem 7: 08/19/23 06:15 08/19/23 06:15 Labs: Microbiology - Last 24 Hours (Table) 08/19/23 16:51 Gram Stain - Preliminary Sputum 08/16/23 21:08 Blood Culture - Preliminary Blood 08/16/23 16:00 Blood Culture - Preliminary Blood 08/16/23 21:30 Gram Stain - Final Sputum Sputum Culture - Final Pseudomonas spec Assessment and Plan Plan: Acute hypoxemic respiratory failure secondary to acute community-acquired pneumonia, bronchiectasis and COVID-19 infection. Sputum culture showing Pseudomonas species, oxygenation is improved and the patient is currently on room air oxygen Hemoptysis secondary to above, currently inactive and stable Multifocal pneumonia with extensive bronchiectatic change in lung base bilaterally, concern for gram-negative/pseudomonal infection Acute COVID-19 infection History of bronchiectasis, has a home percussion vest History of esophageal stricture status post dilatation x 2 History of pulmonary fibrosis Hypothyroidism Gastroesophageal reflux disease Plan: The patient will continue the vest therapy for pulmonary toileting and clearance of the respiratory secretions Will keep the patient n.p.o. after midnight and do a bronchoscopy for therapeutic airway suctioning in the same time collect a lavage which will give us a better identification of the microbial organism growing in his lungs and do some antibiotic sensitivities. the patient for now has multi open bilateral lower lobe pneumonia Continue the current treatment plan Titrate the FiO2 as tolerated Increase his activity as tolerated Continue Mucinex and the flutter valve Family to bring in his percussion vest from home We will continue to follow
[2023-08-20] MEDS: IPRATROPIUM-ALBUTEROL 3 ML NEB INHALATION SCH (15:45)
[2023-08-20] MEDS: guaiFENesin 600 MG TABLET.ER PO SCH (21:47)
[2023-08-21 08:29] LABS: HCT 32.5 % (39.6-50.0); HGB 10.8 g/dL (13.0-17.0); MCH 29.9 pg (27.0-32.0); MCHC 33.2 g/dL (32.0-37.0); Mean Platelet Volume 9.5 FL (9.5-12.2); NRBC Per 100 WBC 0 X 10*3/uL (0.00-0.01); Platelet Count 243 X 10*3/uL (140-440); RBC 3.61 X 10*6/uL (4.40-5.60); WBC 7.31 X 10*3/uL (4.50-10.00)
[2023-08-21 08:47] LABS: BUN/Creat Ratio 16.83 Ratio (12.00-20.00); Blood Urea Nitrogen 10.1 mg/dL (9.0-27.0); Carbon Dioxide 28.8 mmol/L (21.6-31.8); Chloride 104 mmol/L (96-109); Glucose 83 mg/dL (70-110); Potassium 3.5 mmol/L (3.5-5.5); Sodium 141 mmol/L (135-145)
--- NOTE | 2023-08-21 09:51 | XR ---
EXAMINATION TYPE: XR chest 2V DATE OF EXAM: 08/21/2023 7:36 AM CLINICAL INDICATION:Male, 83 years old with history of pneumonia; COMPARISON: Chest radiographs from 08/17/2023 TECHNIQUE: XR chest 2V Frontal and lateral views of the chest. FINDINGS: Lungs/Pleura: There is no evidence of pleural effusion, focal consolidation, or pneumothorax. Pulmonary vascularity: Unremarkable. Heart/mediastinum: Cardiomediastinal silhouette is unremarkable. Musculoskeletal: No acute osseous pathology. IMPRESSION: Similar bibasilar opacities superimposed on COPD and chronic interstitial change. Correlate for super imposed infection.
[2023-08-21] MEDS ORDERED: LIDOCAINE 1% INJ 10MG/ML (20 ML MDV) ONE (12:56)
[2023-08-21] MEDS ORDERED: PROPOFOL 10 MG/ML 20 ML VIAL IV ONE (12:56)
[2023-08-21] MEDS ORDERED: GLYCOPYRROLATE 0.2 MG/ML 2 ML VIAL ONE (12:56)
[2023-08-21] MEDS ORDERED: KETAMINE HCL IN 0.9 % NACL 50 MG/5 ML SYRINGE ONE (12:56)
[2023-08-21] MEDS: SODIUM CHLORIDE 0.9% 50 ML IV ONE (13:07)
[2023-08-21] MEDS: LIDOCAINE 2% INJ 20 MG/ML INTRATRACH ONE (13:13)
[2023-08-21] MEDS: LIDOCAINE 2% GLYDO JELLY 6 ML APPL TOPICAL ONE (13:13)
[2023-08-21] MEDS: SODIUM CHLORIDE 0.9% 500 ML 500 ML IV ONE (13:21)
--- NOTE | 2023-08-21 13:26 | P.PN ---
Subjective Progress Note Date: 08/21/23 83-year-old male with bronchiectasis not requiring home oxygen, COVID positivity 4 weeks ago with presistent positive results, hypertension, GERD, hypothyroidism, and multiple other comorbid conditions who presented to the ER with complaints of weakness and worsening shortness of breath. In the emergency department he underwent extensive evaluation. He was found to be febrile with a temperature of 100.8F and hypoxic with an O2 sat of 87% on room air. Laboratory analysis was remarkable for white blood cell count of 16.4. He did test positive for COVID-19. CXR demonstrated moderate interval worsening of overall lung inflation pattern. This was followed with CTA of the chest which demonstrated severe multifocal bilateral bronchial pneumonia. Patient was admitted and started on IV fluids and Zosyn along with Decadron. Pulmonary was consulted. He was maintained on bronchodilators and steroids. His sputum grew pseudomonas. 08/21 Patient seen and examined at bedside. He reports feeling 80% better. Plans for bronchoscopy today. CBC Hg 10.8 Hct 32.5. BMP unremarkable. Vital signs reviewed General: nontoxic, no distress, appears at stated age Cardiovascular: S1S2 reg, no murmur Lungs: Coarse breath sounds bilateral, no rhonchi, no rales , no accessory muscle use Abdominal: soft, nontender to palpation, no guarding Ext: no gross muscle atrophy, no edema b/l lower extremities, no contractures Neuro: no focal neuro deficits Psych: Alert, oriented, appropriate affect Based on my assessment of this patient, this patient meets a moderate complexity level of care. Patient has an acute diagnosis of acute hypoxic respiratory failure due to bilateral PNA and pseudomonal sputum Cx that poses a threat to life or bodily function. Sepsis due to Pseudomonal pneumonia: Unable to further identify pseudomonas on sputum culture. Repeat sputum Cx ordered. Pulmonary considering bronchoscopy. Robitussin 1200 mg PO BID. Zosyn 3.375 g IV TID (D6). Symbicort 160-4.5 2 puffs BID, Albuterol 2 puffs QID. Albuterol 2 puffs Q2H PRN for SOB. Continue with percussion vest. Plans for bronchoscopy today. Pulmonary on board. Acute hypoxic respiratory failure Suspect persistently positive COVID: Decadron 6 mg PO QD. Pulmonary fibrosis Normocytic Anemia Chronic: Hypothyroidism, GERD, History of esophageal stricture requiring dilatation x 2 CODE STATUS: FULL CODE DVT Prophylaxis: Lovenox GI Prophylaxis: Protonix Designated medical POA if patient is not able to make medical decisions for themselves: I have reviewed the following senior microsoft consultant notes: Pulmonary. I have reviewed the results of the following tests: Sputum Cx. CBC, BMP. I have ordered the following tests: I have discussed the care of this patient with the following independent historian: Discussed with RN regarding plan for the day. I have independently interpreted the following test below: I have discussed the management of this patient with the following physician: Objective - Vital Signs Vital signs: Vital Signs Temp 97.4 F L 08/21/23 07:02 Pulse 82 08/21/23 09:25 Resp 16 08/21/23 07:02 BP 149/72 08/21/23 07:02 Pulse Ox 98 08/21/23 09:26 FiO2 Intake & Output 08/20/23 08/21/23 08/21/23 18:59 06:59 18:59 Other: Voiding Method Toilet # Voids 3 2 # Bowel Movements 1 - Labs CBC & Chem 7: 08/21/23 06:10 08/21/23 06:10 Labs: Abnormal Lab Results - Last 24 Hours (Table) 08/21/23 Range/Units 06:10 RBC 3.61 L (4.40-5.60) X 10*6/uL Hgb 10.8 L (13.0-17.0) g/dL Hct 32.5 L (39.6-50.0) % Microbiology - Last 24 Hours (Table) 08/16/23 21:30 Legionella Culture - Preliminary Sputum 08/19/23 16:51 Gram Stain - Preliminary Sputum 08/16/23 21:08 Blood Culture - Preliminary Blood 08/16/23 16:00 Blood Culture - Preliminary Blood
--- NOTE | 2023-08-21 14:17 | P.PN ---
Subjective Progress Note Date: 08/21/23 This is a very pleasant 83-year-old male patient with a known history of bronchiectasis, chronic obstructive pulmonary disease, former smoker, hearing disorder, hypertension, hypothyroidism, esophageal strictures with previous dilatations. He presented here to the emergency room yesterday with complaints of increasing shortness of breath, cough, congestion and blood tinged sputum. Chest x-ray reveals moderate to marked interval worsening in the overall lung inflation pattern. Previously seen bibasilar right apical dense consolidation redemonstrated. CT angiogram was negative for pulmonary embolism. There is prominent coronary calcifications noted. Severe multifocal broad bilateral bronchopneumonia. White count 16.4. Hemoglobin 12.4. Platelets 266. D-dimer 0.91. Sodium 138. Potassium 4.0. Bicarb 28. BUN 10. Creatinine 0.58. Glucose 113. Influenza screen negative. RSV screen negative. COVID-19 screen positive. He is seen today in consultation on the regular medical floor. He is currently sitting up in bed. Awake and alert in no acute distress. He does have a loose productive cough of some blood-tinged sputum. He has been initiated on Zosyn and azithromycin. Continued on Symbicort and albuterol. Lovenox for DVT prophylaxis. The patient is seen today August 18, 2023 in follow-up the regular medical floor. He is awake and alert in no acute distress. Currently sitting up in bed. He can continues with a loose nonproductive cough. He is working with the flutter valve. He is to have chest physiotherapy. Maintaining good O2 saturations in the 90s on 2 L/min per nasal cannula. No IV fluids. He is continued on Zosyn and azithromycin. Procalcitonin was 2.03. Culture pending. Sputum culture pending. White count 7.0. Hemoglobin 10.5. Platelets 227. Sodium 138. Potassium 3.9. Bicarb 27. BUN 10. Creatinine 0.50. He is continued on albuterol HFA, Symbicort, Decadron. Lovenox for DVT prophylaxis. Remains on Mucinex. The patient is seen today August 19, 2023 in follow-up on the regular medical floor. He is sitting up in bed. Awake and alert in no acute distress. He continues with a loose productive cough. Sputum culture is positive for Pseudomonas species. Blood culture showing no growth. White count 8.3. Hemoglobin 11.0. Platelets 238. Sodium 138. Potassium 3.9. Bicarb 29. BUN 9. Creatinine 0.51. Glucose 80. Procalcitonin 2.03. He remains on Zosyn. Continued on Decadron. Continued on bronchodilators. Lovenox for DVT prophylaxis. On today's evaluation of 08/20/2023, the patient is being seen for a follow- up.The he is known to us from office visits. The patient has extensive bronchiectatic changes in lung base bilaterally and the patient was found to have Pseudomonas species in his sputum Gram stain and culture. Note that he was also infected with COVID-19 in early June. He is unable to bring up much of sputum. He has a vest and is undergoing vest therapy for mobility of his respiratory secretions. He remains on IV Zosyn. No fever or chills.Oxygenation is stable and the patient is on 2 L of oxygen by nasal cannula with a pulse ox of 98%. He was transitioned to room air oxygen. His current pulse ox 96% he is afebrile. He remains on Lovenox for DVT prophylaxis. He is completing also a course of Decadron 6 mg p.o. daily. No chest pain. No pleurisy. No hemoptysis. CAT scan of the chest was reviewed and there is extensive bronchiectatic changes in lung base bilaterally and at the same time the patient has multifocal bilateral pneumonia worse in the lower lobes bilaterally. The plan is to undergo bronchoscopy for therapeutic airway suctioning and a bronchial lavage. Of concern is the Pseudomonas species identified in the sputum. On 08/21/2023, the patient is doing well. No specific complaints. He is having a congested cough and bringing up some loose respiratory secretions. I performed a bronchoscopy on this patient and I was able to suction approximately 40 cc of dark yellowish respiratory secretion that seems to be quite purulent. Note that the concern is a pseudomonal infection/pseudomonal pneumonia. The patient remains on IV Zosyn for now. He remains on DuoNeb nebulized treatments [id number]. The bronchial lavage will be sent for cultures and analysis and we will make further adjustments on antibiotics if needed. No nausea. No vomiting. No diarrhea. Oxygenation stable on room air oxygen and patient's pulse ox in the order of 98%. Repeat chest x-ray From today still showing bibasilar pulmonary opacities consistent with COPD and lower lobe pneumonia. Objective - Vital Signs Vital signs: Vital Signs Temp 97.4 F L 08/21/23 07:02 Pulse 79 08/21/23 09:35 Resp 16 08/21/23 07:02 BP 149/72 08/21/23 07:02 Pulse Ox 98 08/21/23 09:26 FiO2 Intake & Output 08/20/23 08/21/23 08/21/23 18:59 06:59 18:59 Other: Voiding Method Toilet # Voids 3 2 # Bowel Movements 1 - Exam GENERAL EXAM: Alert, pleasant, 83-year-old male, on 2 L nasal cannula, comfortable in no apparent distress. HEAD: Normocephalic. EYES: Normal reaction of pupils, equal size. NOSE: Clear with pink turbinates. THROAT: No erythema or exudates. NECK: No masses, no JVD. CHEST: No chest wall deformity. LUNGS: Equal air entry with bilateral scattered rhonchi. CVS: S1 and S2 normal with no audible murmur, regular rhythm. ABDOMEN: No hepatosplenomegaly, normal bowel sounds, no guarding or rigidity. SPINE: No scoliosis or deformity SKIN: No rashes CENTRAL NERVOUS SYSTEM: No focal deficits, tone is normal in all 4 extremities. EXTREMITIES: There is no peripheral edema. No clubbing, no cyanosis. Peripheral pulses are intact. - Labs CBC & Chem 7: 08/21/23 06:10 08/21/23 06:10 Labs: Abnormal Lab Results - Last 24 Hours (Table) 08/21/23 Range/Units 06:10 RBC 3.61 L (4.40-5.60) X 10*6/uL Hgb 10.8 L (13.0-17.0) g/dL Hct 32.5 L (39.6-50.0) % Microbiology - Last 24 Hours (Table) 08/19/23 16:51 Gram Stain - Final Sputum Sputum Culture - Final 08/16/23 21:30 Legionella Culture - Preliminary Sputum Assessment and Plan Plan: Acute hypoxemic respiratory failure secondary to acute community-acquired pneumonia, bronchiectasis and COVID-19 infection. Sputum culture showing Pseudomonas species, oxygenation is improved and the patient is currently on room air oxygen. The patient is post bronchoscopy endobronchial lavage of the lower lobes were obtained and the microbial cultures are still pending. A total of 40 cc of purulent respiratory secretions were suctioned out from his lungs at the time of the bronchoscopy. Hemoptysis secondary to above, currently inactive and stable Multifocal pneumonia with extensive bronchiectatic change in lung base bilaterally, concern for gram-negative/pseudomonal infection Acute COVID-19 infection History of bronchiectasis, has a home percussion vest History of esophageal stricture status post dilatation x 2 History of pulmonary fibrosis Hypothyroidism Gastroesophageal reflux disease Plan: The patient will continue the vest therapy for pulmonary toileting and clearance of the respiratory secretions Bronchoscopy was completed with therapeutic airway suctioning of approximately 40 cc of purulent respiratory secretions. This will be sent for micro blood cultures and analysis Follow-up chest x-ray still showing lower lobe pulmonary opacities and pulm infiltration pneumonia Continue the current treatment plan Titrate the FiO2 as tolerated Increase his activity as tolerated Continue IV Zosyn will make further antibiotic adjustments based on the microbial cultures and analysis Patient is currently on room air oxygen Continue Mucinex and the flutter valve Family to bring in his percussion vest from home We will continue to follow
--- NOTE | 2023-08-21 14:21 | P.PCN ---
Date of Procedure: 08/21/23 Preoperative Diagnosis: Bronchiectasis, bilateral lower lobe pneumonia Postoperative Diagnosis: Same rule out pseudomonal pneumonia Procedure(s) Performed: Bronchoscopy and bronchial lavage of the right lower lobe Anesthesia: MAC Surgeon: Bertha Lowe Estimated Blood Loss (ml): 0 Condition: stable Disposition: floor Operative Findings: This procedure was done in the endoscopy suite. A consent was already signed. A timeout was done. Anesthetic agent was administered by the BUILDING INSULATION INSTALLER at the bedside. After achieving adequate sedation, the flexor bronchoscope was introduced through the right nostril. The patient was already on a simple facemask at 10 L. No issues with oxygenation and during the entire procedure was encountered. The flexible bronchoscope was introduced through the right nostril and was advanced into the upper airways and examination of the posterior pharynx, larynx, epiglottis, arytenoids and vocal cords in the vallecula was done. All of those upper airway structures were within normal limits. A total of 2 cc of 1% lidocaine was applied to the vocal cords and following that the flexible bronchoscope was introduced into the upper trachea. Examination of the tracheobronchial tree was done. 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 Therapeutic airway suctioning was done and a total of 40 cc of respiratory secretions were s uctioned out without any major difficulties and this was suctioned from the entire airways including the trachea, bilateral mainstem bronchi and the various segments of the lower lobes bilaterally. Airway inspection included the entire trachea that showed tracheomalacia, bilateral mainstem bronchi, right upper lobe bronchus, bronchus intermedius, right middle lobe bronchus and right lower lobe bronchus and the base 10 segments on the right and left mainstem bronchus and the left upper lobe bronchus and the left lower lobe bronchus and the various 8 segments on the left. At the completion of the procedure, I bronchoalveolar lavage of the right lower lobe was done. A total of 60 cc of saline was infused and 40 cc was aspirated without any major difficulties. All of the samples will be sent for cultures. The bronchoscope was removed and the procedure was terminated and the patient was sent to recovery in stable condition. He did encounter some cough and following the procedure. No other complications.
[2023-08-22 05:24] LABS: Appearance,BF Turbid (Clear); RBC, Body Fluid 3000 /UL (0-2000)
[2023-08-22 07:41] VITALS: RESP 20; TEMP 97.7
[2023-08-22] MEDS: PIPERACILLIN-TAZOBACTAM 3.375 GM in SODIUM CHLORIDE 0.9% 100 ML IVPB SCH (10:09)
[2023-08-22 10:44] LABS: Nucleated Cells, Body Fluid 6500 /UL
[2023-08-22 13:46] VITALS: BP 94/50; PULSE 95
--- NOTE | 2023-08-22 13:47 | P.DS ---
Providers Date of admission: 08/16/23 20:36 Expected date of discharge: 08/22/23 Attending physician: Bruno Sandoval MD Consults: 08/16/23 20:35 Consult Physician Routine Consulting Provider: Gildardo Padilla Consult Reason/Comments: hypoxic resp failure, bronchopneumonia Do you want consulting provider notified?: Yes Primary care physician: [facility] Course: 83-year-old male with bronchiectasis not requiring home oxygen, COVID positivity 4 weeks ago with presistent positive results, hypertension, GERD, hypothyroidism, and multiple other comorbid conditions who presented to the ER with complaints of weakness and worsening shortness of breath. In the emergency department he underwent extensive evaluation. He was found to be febrile with a temperature of 100.8F and hypoxic with an O2 sat of 87% on room air. Laboratory analysis was remarkable for white blood cell count of 16.4. He did test positive for COVID-19. CXR demonstrated moderate interval worsening of overall lung inflation pattern. This was followed with CTA of the chest which demonstrated severe multifocal bilateral bronchial pneumonia. Patient was admitted and started on IV fluids and Zosyn along with Decadron. Pulmonary was consulted. He was maintained on bronchodilators and steroids. His sputum grew pseudomonas. 08/21 Patient seen and examined at bedside. He reports feeling 80% better. Plans for bronchoscopy today. CBC Hg 10.8 Hct 32.5. BMP unremarkable. 08/22 Patient was seen and examined. Feeling well. No complaints. Not on any supplemental oxygen. Underwent bronchoscopy, 40 cc of mucopurulent sputum drained. Discussed with Dr. Lowe, cleared for discharge on PO antibiotics, follow up with Dr. Vela for results of sputum Cx, may need antibiotic adjustme nt. We will discharge the patient home to complete 10 total days of Decadron and 14 days of Ciprofloxacin for treatment of pseudomonal pneumonia. Vital signs reviewed General: nontoxic, no distress, appears at stated age Cardiovascular: S1S2 reg, no murmur Lungs: Coarse breath sounds bilateral, no rhonchi, no rales , no accessory muscle use Abdominal: soft, nontender to palpation, no guarding Ext: no gross muscle atrophy, no edema b/l lower extremities, no contractures Neuro: no focal neuro deficits Psych: Alert, oriented, appropriate affect Discharge Diagnosis: Sepsis due to Pseudomonal pneumonia Acute hypoxic respiratory failure Suspect persistently positive COVID Pulmonary fibrosis Normocytic Anemia Chronic: Hypothyroidism, GERD, History of esophageal stricture requiring dilatation x 2 This complex discharge took 35 minutes to complete. Patient Condition at Discharge: Stable Plan - Discharge Summary Discharge Rx Participant: Yes New Discharge Prescriptions: New Ciprofloxacin HCl [Cipro] 500 mg PO Q12HR 14 Days #28 tab dexAMETHasone ORAL [Hexadrol] 6 mg PO DAILY #12 tab Continue Levothyroxine Sodium [Synthroid] 100 mcg PO DAILY Omeprazole [PriLOSEC] 20 mg PO DAILY Terazosin [Hytrin] 4 mg PO HS Cholecalciferol (Vitamin D3) [Vitamin D3 (50 Mcg = 2000 Iu)] 50 mcg PO DAILY Albuterol Inhaler [Ventolin Hfa Inhaler] 1 - 2 puff INHALATION RT-Q6H PRN PRN Reason: Shortness Of Breath Fluticasone Propion/Salmeterol [Fluticasone-Salmeterol 250-50] 1 puff INHALATION RT-BID guaiFENesin [Mucinex] 600 mg PO Q12H polyethylene glycoL 3350 [Miralax] 17 gm PO DAILY PRN PRN Reason: Constipation Vitamin E (Dl,Tocopheryl Acet) [Vitamin E (400 Iu = 180 mg)] 400 unit PO DAILY Acetylcysteine [Nac] 500 mg PO BID Discharge Medication List Levothyroxine Sodium [Synthroid] 100 mcg PO DAILY 11/15/16 [History] Omeprazole [PriLOSEC] 20 mg PO DAILY 11/15/16 [History] Terazosin [Hytrin] 4 mg PO HS 08/05/17 [History] Acetylcysteine [Nac] 500 mg PO BID 08/16/23 [History] Albuterol Inhaler [Ventolin Hfa Inhaler] 1 - 2 puff INHALATION RT-Q6H PRN 08/16/23 [History] Cholecalciferol (Vitamin D3) [Vitamin D3 (50 Mcg = 2000 Iu)] 50 mcg PO DAILY 08/16/23 [History] Fluticasone Propion/Salmeterol [Fluticasone-Salmeterol 250-50] 1 puff INHALATION RT-BID 08/16/23 [History] Vitamin E (Dl,Tocopheryl Acet) [Vitamin E (400 Iu = 180 mg)] 400 unit PO DAILY 08/16/23 [History] guaiFENesin [Mucinex] 600 mg PO Q12H 08/16/23 [History] polyethylene glycoL 3350 [Miralax] 17 gm PO DAILY PRN 08/16/23 [History] Ciprofloxacin HCl [Cipro] 500 mg PO Q12HR 14 Days #28 tab 08/22/23 [Rx] dexAMETHasone ORAL [Hexadrol] 6 mg PO DAILY #12 tab 08/22/23 [Rx] Follow up Appointment(s)/Referral(s): Vangie Vela MD [STAFF PHYSICIAN] - 09/03/23 1:30 pm Reggie Reyes MD [REFERRING] - 08/24/23 1:30 pm (Please bring the disharge packet at time of discharge.) Patient Instructions/Handouts: Hypoxia (GEN), Flexible Bronchoscopy (DC) Activity/Diet/Wound Care/Special Instructions: Follow up with Dr. Vela within 1 week of discharge. Follow up the sputum culture that was collected during the bronchoscopy with Dr. Vela, you might need antibiotic adjustment. Discharge Disposition: HOME SELF-CARE
--- NOTE | 2023-08-22 19:08 | P.PN ---
Subjective Progress Note Date: 08/22/23 This is a very pleasant 83-year-old male patient with a known history of bronchiectasis, chronic obstructive pulmonary disease, former smoker, hearing disorder, hypertension, hypothyroidism, esophageal strictures with previous dilatations. He presented here to the emergency room yesterday with complaints of increasing shortness of breath, cough, congestion and blood tinged sputum. Chest x-ray reveals moderate to marked interval worsening in the overall lung inflation pattern. Previously seen bibasilar right apical dense consolidation redemonstrated. CT angiogram was negative for pulmonary embolism. There is prominent coronary calcifications noted. Severe multifocal broad bilateral bronchopneumonia. White count 16.4. Hemoglobin 12.4. Platelets 266. D-dimer 0.91. Sodium 138. Potassium 4.0. Bicarb 28. BUN 10. Creatinine 0.58. Glucose 113. Influenza screen negative. RSV screen negative. COVID-19 screen positive. He is seen today in consultation on the regular medical floor. He is currently sitting up in bed. Awake and alert in no acute distress. He does have a loose productive cough of some blood-tinged sputum. He has been initiated on Zosyn and azithromycin. Continued on Symbicort and albuterol. Lovenox for DVT prophylaxis. The patient is seen today August 18, 2023 in follow-up the regular medical floor. He is awake and alert in no acute distress. Currently sitting up in bed. He can continues with a loose nonproductive cough. He is working with the flutter valve. He is to have chest physiotherapy. Maintaining good O2 saturations in the 90s on 2 L/min per nasal cannula. No IV fluids. He is continued on Zosyn and azithromycin. Procalcitonin was 2.03. Culture pending. Sputum culture pending. White count 7.0. Hemoglobin 10.5. Platelets 227. Sodium 138. Potassium 3.9. Bicarb 27. BUN 10. Creatinine 0.50. He is continued on albuterol HFA, Symbicort, Decadron. Lovenox for DVT prophylaxis. Remains on Mucinex. The patient is seen today August 19, 2023 in follow-up on the regular medical floor. He is sitting up in bed. Awake and alert in no acute distress. He continues with a loose productive cough. Sputum culture is positive for Pseudomonas species. Blood culture showing no growth. White count 8.3. Hemoglobin 11.0. Platelets 238. Sodium 138. Potassium 3.9. Bicarb 29. BUN 9. Creatinine 0.51. Glucose 80. Procalcitonin 2.03. He remains on Zosyn. Continued on Decadron. Continued on bronchodilators. Lovenox for DVT prophylaxis. On today's evaluation of 08/20/2023, the patient is being seen for a follow- up.The he is known to us from office visits. The patient has extensive bronchiectatic changes in lung base bilaterally and the patient was found to have Pseudomonas species in his sputum Gram stain and culture. Note that he was also infected with COVID-19 in early June. He is unable to bring up much of sputum. He has a vest and is undergoing vest therapy for mobility of his respiratory secretions. He remains on IV Zosyn. No fever or chills.Oxygenation is stable and the patient is on 2 L of oxygen by nasal cannula with a pulse ox of 98%. He was transitioned to room air oxygen. His current pulse ox 96% he is afebrile. He remains on Lovenox for DVT prophylaxis. He is completing also a course of Decadron 6 mg p.o. daily. No chest pain. No pleurisy. No hemoptysis. CAT scan of the chest was reviewed and there is extensive bronchiectatic changes in lung base bilaterally and at the same time the patient has multifocal bilateral pneumonia worse in the lower lobes bilaterally. The plan is to undergo bronchoscopy for therapeutic airway suctioning and a bronchial lavage. Of concern is the Pseudomonas species identified in the sputum. On 08/21/2023, the patient is doing well. No specific complaints. He is having a congested cough and bringing up some loose respiratory secretions. I performed a bronchoscopy on this patient and I was able to suction approximately 40 cc of dark yellowish respiratory secretion that seems to be quite purulent. Note that the concern is a pseudomonal infection/pseudomonal pneumonia. The patient remains on IV Zosyn for now. He remains on DuoNeb nebulized treatments [id number]. The bronchial lavage will be sent for cultures and analysis and we will make further adjustments on antibiotics if needed. No nausea. No vomiting. No diarrhea. Oxygenation stable on room air oxygen and patient's pulse ox in the order of 98%. Repeat chest x-ray From today still showing bibasilar pulmonary opacities consistent with COPD and lower lobe pneumonia. On today's evaluation of 08/22/2023, the patient is being seen for a follow-up. He is doing well. No specific complaints. Bronchoscopy endobronchial lavage was done and the results are still pending for now. The patient has no other new complaints. He has had previous episodes of pseudomonal infection of the lungs. He had a pseudomonal infection back in 2018 and another pseudomonal infections being considered for now. For that reason, a bronchoscopy endobronchial lavage was done. He is currently on room air oxygen. He does have some chronic bronchiectasis and lower lobe pulmonary consolidation infiltrates. [facility] be followed up on outpatient basis to follow-up on the results of the bronchial lavage and decide on further antibiotic treatment accordingly. He is doing well otherwise for now. Objective - Vital Signs Vital signs: Vital Signs Temp 97.7 F 08/22/23 07:28 Pulse 75 08/22/23 08:26 Resp 20 08/22/23 07:28 BP 151/73 08/22/23 07:28 Pulse Ox 97 08/22/23 08:18 FiO2 Intake & Output 08/21/23 08/22/23 08/22/23 18:59 06:59 18:59 Intake Total 150 240 Balance 150 240 Intake: IV 150 Oral 240 Other: Voiding Method Toilet # Voids 2 2 - Exam GENERAL EXAM: Alert, pleasant, 83-year-old male, on 2 L nasal cannula, comfortable in no apparent distress. HEAD: Normocephalic. EYES: Normal reaction of pupils, equal size. NOSE: Clear with pink turbinates. THROAT: No erythema or exudates. NECK: No masses, no JVD. CHEST: No chest wall deformity. LUNGS: Equal air entry with bilateral scattered rhonchi. CVS: S1 and S2 normal with no audible murmur, regular rhythm. ABDOMEN: No hepatosplenomegaly, normal bowel sounds, no guarding or rigidity. SPINE: No scoliosis or deformity SKIN: No rashes CENTRAL NERVOUS SYSTEM: No focal deficits, tone is normal in all 4 extremities. EXTREMITIES: There is no peripheral edema. No clubbing, no cyanosis. Periphe ral pulses are intact. - Labs CBC & Chem 7: 08/21/23 06:10 08/21/23 06:10 Labs: Abnormal Lab Results - Last 24 Hours (Table) 08/21/23 Range/Units 13:20 Fluid Appearance Turbid A (Clear) Microbiology - Last 24 Hours (Table) 08/16/23 21:08 Blood Culture - Final Blood 08/16/23 16:00 Blood Culture - Final Blood 08/19/23 16:51 Gram Stain - Final Sputum Sputum Culture - Final Assessment and Plan Plan: Acute hypoxemic respiratory failure secondary to acute community-acquired pneumonia, bronchiectasis and COVID-19 infection. Sputum culture showing Pseudomonas species, oxygenation is improved and the patient is currently on room air oxygen. The patient is post bronchoscopy endobronchial lavage of the lower lobes were obtained and the microbial cultures are still pending. A total of 40 cc of purulent respiratory secretions were suctioned out from his lungs at the time of the bronchoscopy. Hemoptysis secondary to above, currently inactive and stable Multifocal pneumonia with extensive bronchiectatic change in lung base bilaterally, concern for gram-negative/pseudomonal infection Acute COVID-19 infection History of bronchiectasis, has a home percussion vest History of esophageal stricture status post dilatation x 2 History of pulmonary fibrosis Hypothyroidism Gastroesophageal reflux disease Plan: The patient is post bronchoscopy with therapeutic airway suctioning, awaiting results of the BAL. The patient can be discharged home on ciprofloxacin and further antibiotic adjustments will be done as an outpatient basis Patient is currently on room air oxygen Continue Mucinex and the flutter valve percussion vest therapy at home Resume home medications in addition to oral antibiotics and the patient is to be followed up by Dr. Peraza on outpatient basis. Crucial to follow-up on the results of the bronchoalveolar lavage and make further antibiotic adjustments if needed.
== END 2023-08-22 15:18 | disposition home or self-care (01) | DRG 871 ==
LOC: EC 15:47 → 4SSUR 20:36
PROVIDERS: ADMIT Internal Medicine; ATTEND Internal Medicine
PROC: 8E0ZXY6 Isolation (ICD-10-PCS; 2023-08-16)
PROC: 0B9F7ZX Drainage of Right Lower Lung Lobe, Via Natural or Artificial Opening, Diagnostic (ICD-10-PCS; principal; 2023-08-21 07:30)
PROC: 0BJ08ZZ Inspection of Tracheobronchial Tree, Via Natural or Artificial Opening Endoscopic (ICD-10-PCS; principal; 2023-08-21 07:30)
DX: A41.52 Sepsis due to Pseudomonas (principal); J15.1 Pneumonia due to Pseudomonas; U07.1 COVID-19; J96.01 Acute respiratory failure with hypoxia; J44.0 Chronic obstructive pulmonary disease with (acute) lower respiratory infection; J47.0 Bronchiectasis with acute lower respiratory infection; E89.0 Postprocedural hypothyroidism; H91.90 Unspecified hearing loss, unspecified ear; I10 Essential (primary) hypertension; J98.09 Other diseases of bronchus, not elsewhere classified; N42.9 Disorder of prostate, unspecified; I25.10 Atherosclerotic heart disease of native coronary artery without angina pectoris; K22.2 Esophageal obstruction; Z97.4 Presence of external hearing-aid; K21.9 Gastro-esophageal reflux disease without esophagitis; Z87.891 Personal history of nicotine dependence; Z87.01 Personal history of pneumonia (recurrent); Z79.890 Hormone replacement therapy; Z79.899 Other long term (current) drug therapy; Z78.9 Other specified health status
CPT/HCPCS: 31624; 36415; 71045; 71046; 71275; 80048; 80053; 81001; 83605; 83735; 84145; 84484; 85025; 85027; 85379; 85610; 85730; 87040; 87070; 87102; 87116; 87205; 87206; 87449; 87636; 89050; 93005; 94640; 94664; 94667; 94668; 94760; 96361; 96374; 96375; 99285

== ENCOUNTER → 2024-01-16 | Day surgery (SDC) | payer MEDICARE, OTHER | LOC: ORWHC2ENDO 12:02 | PROVIDERS: ATTEND Internal Medicine Gastroenterology | DX: Z53.8 Procedure and treatment not carried out for other reasons (principal); R13.10 Dysphagia, unspecified ==

== ENCOUNTER → 2024-01-18 | Day surgery (SDC) | payer MEDICARE, OTHER ==
[2024-01-17 11:29] VITALS: BMI 20.9
[~2024-01-18] MED LIST changes: -LACTATED RINGERS 1,000 ML IV SCH; +LIDOCAINE 1% INJ 10MG/ML (20 ML MDV) ONE; +PROPOFOL 10 MG/ML 20 ML VIAL IV ONE
[2024-01-18] MEDS: IV FLUID CONTINUATION 1,000 ML IV ONE (11:48)
[2024-01-18 12:13] VITALS: TEMP 98.4
--- NOTE | 2024-01-18 13:50 | P.PCN ---
Date of Procedure: 01/18/24 Procedure(s) Performed: BRIEF HISTORY: Patient is a 83-year-old, pleasant, white male scheduled for an upper endoscopy as a part of evaluation of progressive dysphagia to solids for the last 3 to 4 months duration. He has history of prior esophageal stricture that was dilated in March 2022.. PROCEDURE PERFORMED: Esophagogastroduodenoscopy with dilation. PREOPERATIVE DIAGNOSIS: Progressive dysphagia to solids. IV sedation per anesthesia. PROCEDURE: After informed consent was obtained, the patient was brought into the endoscopy unit. IV sedation was administered by Anesthesia under continuous monitoring. Initially the Olympus GIF-140 video endoscope was inserted into the mouth. Esophagus intubated without any difficulty. It was gradually advanced into the stomach and duodenum and carefully examined. The bulb and the second part of the duodenum appeared normal. The scope at this time was withdrawn to the stomach, adequately insufflated with air, and upon careful examination, mucosa of the antrum, body, cardia and the fundus appeared normal. The scope was then withdrawn into the esophagus. Small hiatal hernia noted. The GE junction was located at 39 cm from the incisors. The distal esophageal stricture identified that was dilated with 2015 mm TTS balloon in a sequential fashion for 60 seconds. There was some mucosal oozing noted following the dilation. The rest of the esophagus appeared normal. There were no erosions or ulcerations seen and the patient tolerated the procedure well. IMPRESSION: 1. Distal esophageal stricture s/p balloon dilation using 12 to 15 mm TTS balloon as described above. 2. Small hiatal hernia. RECOMMENDATIONS: The findings of this examination were discussed with the patient as well as his family. He was advised to be on a clear liquid diet for 2 hours. Continue with omeprazole 20 mg daily. Follow-up in the office as needed if he has worsening dysphagia.
[2024-01-18 13:57] VITALS: RESP 16
[2024-01-18 14:07] VITALS: BP 144/75; PULSE 97
== END ==
LOC: ORWHC2ENDO 11:16
PROVIDERS: ATTEND Internal Medicine Gastroenterology
DX: K22.2 Esophageal obstruction (principal); K44.9 Diaphragmatic hernia without obstruction or gangrene; K21.9 Gastro-esophageal reflux disease without esophagitis; I10 Essential (primary) hypertension; J44.9 Chronic obstructive pulmonary disease, unspecified; E07.9 Disorder of thyroid, unspecified; R04.2 Hemoptysis; U07.1 COVID-19; Z86.16 Personal history of COVID-19; Z87.891 Personal history of nicotine dependence; Z79.890 Hormone replacement therapy; Z79.899 Other long term (current) drug therapy; Z79.51 Long term (current) use of inhaled steroids
CPT/HCPCS: 43249; J2001; J2704; C1726

== ENCOUNTER 2024-03-23 15:36 | Inpatient (IN) | payer MEDICARE, OTHER ==
--- NOTE | 2024-03-23 15:58 | ED ---
General Adult HPI - General Chief complaint: Shortness of Breath Stated complaint: Weakness,SOB Time Seen by Provider: 03/23/24 15:43 Source: patient, RN notes reviewed Mode of arrival: EMS Limitations: no limitations - History of Present Illness Initial comments: Patient is an 83-year-old male present to the emergency department with concerns with cough and weakness and dyspnea. Symptoms have been present for the past few days. Patient does have chronic cough, worse recently. Patient has thick white sputum. Unclear if he has had fevers at home. Patient feels somewhat weak all over. Patient has history of COPD and bronchiectasis. - Related Data Home Medications Medication Instructions Recorded Confirmed Levothyroxine Sodium [Synthroid] 100 mcg PO QAM 11/15/16 01/18/24 Omeprazole [PriLOSEC] 20 mg PO QAM 11/15/16 01/17/24 Terazosin [Hytrin] 2 mg PO HS 08/05/17 01/17/24 Albuterol Inhaler [Ventolin Hfa 1 - 2 puff INHALATION RT-Q6H PRN 08/16/23 01/18/24 Inhaler] Cholecalciferol (Vitamin D3) 50 mcg PO DAILY 08/16/23 01/17/24 [Vitamin D3 (50 Mcg = 2000 Iu)] Fluticasone Propion/Salmeterol 1 puff INHALATION RT-BID 08/16/23 01/17/24 [Fluticasone-Salmeterol 250-50] Cephalexin [Keflex] 500 mg PO TID 01/17/24 01/17/24 Ibuprofen 600 mg PO Q8H PRN 01/17/24 01/18/24 guaiFENesin [Mucinex] 600 mg PO BID 01/17/24 01/17/24 Allergies Allergy/AdvReac Type Severity Reaction Status Date / Time No Known Allergies Allergy Verified 01/18/24 11:53 Review of Systems ROS Statement: Those systems with pertinent positive or pertinent negative responses have been documented in the HPI. ROS Other: All systems not noted in ROS Statement are negative. Constitutional: Reports: as per HPI ENT: Denies: ear pain Respiratory: Reports: as per HPI, cough, dyspnea Cardiovascular: Denies: chest pain Endocrine: Reports: fatigue Neurological: Reports: as per HPI Past Medical History Past Medical History: COPD, GERD/Reflux, Hearing Disorder / Deafness, Hypertension, Pneumonia, Prostate Disorder, Respiratory Disorder, Thyroid Disorder Additional Past Medical History / Comment(s): Current right elbow infection on Keflex, per patient Dr Pino aware. Bronchiectasis. Difficulty swallowing/narrowing of esophagus. Hx sepsis secondary to Pneumonia 07/2017. Bilateral hearing aid use. Wears compression stocking right leg due to varicose veins. History of Any Multi-Drug Resistant Organisms: None Reported Past Surgical History: Orthopedic Surgery, Tonsillectomy Additional Past Surgical History / Comment(s): Thyroidectomy, right knee arthroscopy, EGD with dilation X2, bronchoscopy, colonoscopy, bilateral cataracts removed. Past Anesthesia/Blood Transfusion Reactions: No Reported Reaction Additional Past Anesthesia/Blood Transfusion Reaction / Comment(s): Aspirated food in lung after EGD 11/2017. Past Psychological History: No Psychological Hx Reported Smoking Status: Former smoker Past Alcohol Use History: Rare Past Drug Use History: None Reported - Past Family History Mother Family Medical History: No Reported History Father History Unknown: Yes General Exam Limitations: no limitations General appearance: alert, in no apparent distress Head exam: Present: normocephalic Eye exam: Present: normal appearance Neck exam: Present: normal inspection Respiratory exam: Present: rales (Mostly right lower) Cardiovascular Exam: Present: tachycardia GI/Abdominal exam: Present: soft. Absent: tenderness Extremities exam: Present: normal inspection. Absent: pedal edema, calf tenderness Neurological exam: Present: alert. Absent: motor sensory deficit Psychiatric exam: Present: normal affect, normal mood Skin exam: Present: normal color Course Vital Signs 03/23/24 03/23/24 15:40 15:56 Temperature 99.5 F Pulse Rate 111 H Respiratory 18 18 Rate Blood Pressure 121/70 O2 Sat by Pulse 94 L Oximetry EKG Findings - EKG Results: EKG: interpreted by ERMD (Left axis. Patient), sinus rhythm, normal QRS, normal ST/T EKG shows: tachycardia Medical Decision Making - Medical Decision Making Was pt. sent in by a medical professional or institution (, PA, BEVELING AND EDGING MACHINE OPERATOR, urgent care, hospital, or assisted...) When possible be specific @ -No Did you speak to anyone other than the patient for history (EMS, parent, family, police, friend...)? What history was obtained from this source @ -No Did you review nursing and triage notes (agree or disagree)? Why? @ -I reviewed and agree with nursing and triage notes Were old charts reviewed (outside hosp., previous admission, EMS record, old EKG, old radiological studies, urgent care reports/EKG's, assisted records)? Report findings @ -Previous x-ray reviewed however today's appears worse Differential Diagnosis (chest pain, altered mental status, abdominal pain women, abdominal pain men, vaginal bleeding, weakness, fever, dyspnea, syncope, headache, dizziness, GI bleed, back pain, seizure, CVA, palpatations, mental health, musculoskeletal)? @ -Differential Dyspnea: Coronary syndrome, arrhythmia, tamponade, asthma, COPD, pulmonary embolism, pneumonia, pneumothorax, pulmonary effusion, anaphylaxis, diabetic ketoacidosis, flailed chest, pulmonary contusion, diaphragmatic rupture, anemia, neuromuscular, this is not meant to be an all-inclusive list. EKG interpreted by me (3pts min.). @ -As above X-rays interpreted by me (1pt min.). @ -Chest x-ray shows interstitial changes with additional markings left upper lobe CT interpreted by me (1pt min.). @ -None done U/S interpreted by me (1pt. min.). @ -None done What testing was considered but not performed or refused? (CT, X-rays, U/S, labs)? Why? @ -None What meds were considered but not given or refused? Why? @ -None Did you discuss the management of the patient with other professionals (professionals i.e. , PA, BEVELING AND EDGING MACHINE OPERATOR, lab, RT, psych nurse, executive secretary social welfare, patient care representative, teacher, gifts officer, case investigator)? Give summary @ -Case was discussed with Dr. Acharya who will admit covering Dr. Reyes Was smoking cessation discussed for >3mins.? @ -No Was critical care preformed (if so, how long)? @ -31 minutes critical care time Were there social determinants of health that impacted care today? How? (Homele ssness, low income, unemployed, alcoholism, drug addiction, transportation, low edu. Level, literacy, decrease access to med. care, longterm, rehab)? @ -No Was there de-escalation of care discussed even if they declined (Discuss DNR or withdrawal of care, Hospice)? DNR status @ -No What co-morbidities impacted this encounter? (DM, HTN, Smoking, COPD, CAD, Cancer, CVA, ARF, Chemo, Hep., AIDS, mental health diagnosis, sleep apnea, morbid obesity)? @ -Underlying COPD Was patient admitted / discharged? Hospital course, mention meds given and route, prescriptions, significant lab abnormalities, going to OR and other pertinent info. @ -Patient presents with cough and difficulty breathing. Chest x-ray concerning for pneumonia. Patient will be admitted. Orders written. There is concern for sepsis diagnosed at 1840. Blood cultures and lactic acid and IV antibiotics will be added. Undiagnosed new problem with uncertain prognosis? @ -No Drug Therapy requiring intensive monitoring for toxicity (Heparin, Nitro, Insulin, Cardizem)? @ -No Were any procedures done? @ -No Diagnosis/symptom? @ -Pneumonia, COPD Acute, or Chronic, or Acute on Chronic? @ -Acute, acute on chronic Uncomplicated (without systemic symptoms) or Complicated (systemic symptoms)? @ -Default Side effects of treatment? @ -No Exacerbation, Progression, or Severe Exacerbation? @ -No Poses a threat to life or bodily function? How? (Chest pain, USA, IA, pneumonia, PE, COPD, DKA, ARF, appy, cholecystitis, CVA, Diverticulitis, Homicidal, Suicidal, threat to staff... and all critical care pts) @ -Threat to pulmonary function - Lab Data Result diagrams: 03/23/24 15:56 03/23/24 15:56 Lab Results 03/23/24 03/23/24 03/23/24 Range/Units 15:56 15:56 15:56 WBC 12.0 H (3.8-10.6) k/uL RBC 4.06 L (4.30-5.90) m/uL Hgb 12.1 L (13.0-17.5) gm/dL Hct 36.6 L (39.0-53.0) % MCV 90.3 (80.0-100.0) fL MCH 29.8 (25.0-35.0) pg MCHC 33.0 (31.0-37.0) g/dL RDW 12.9 (11.5-15.5) % Plt Count 213 (150-450) k/uL MPV 6.9 Neutrophils % 89 % Lymphocytes % 6 % Monocytes % 3 % Eosinophils % 0 % Basophils % 0 % Neutrophils # 10.8 H (1.3-7.7) k/uL Lymphocytes # 0.7 L (1.0-4.8) k/uL Monocytes # 0.4 (0-1.0) k/uL Eosinophils # 0.1 (0-0.7) k/uL Basophils # 0.0 (0-0.2) k/uL PT 11.9 (10.0-12.5) sec INR 1.1 (<1.2) APTT 26.5 (22.0-30.0) sec Sodium 135 L (137-145) mmol/L Potassium 4.0 (3.5-5.1) mmol/L Chloride 98 (98-107) mmol/L Carbon Dioxide 27 (22-30) mmol/L Anion Gap 10 mmol/L BUN 8 L (9-20) mg/dL Creatinine 0.59 L (0.66-1.25) mg/dL Est GFR (CKD-EPI)AfAm >90 (>60 ml/min/1.73 sqM) Est GFR (CKD-EPI)NonAf >90 (>60 ml/min/1.73 sqM) Glucose 85 (74-99) mg/dL Plasma Lactic Acid Tereso (0.7-2.0) mmol/L Calcium 9.0 (8.4-10.2) mg/dL Magnesium 1.5 L (1.6-2.3) mg/dL Total Bilirubin 0.9 (0.2-1.3) mg/dL AST 26 (17-59) U/L ALT 8 (4-49) U/L Alkaline Phosphatase 71 (38-126) U/L Total Protein 7.5 (6.3-8.2) g/dL Albumin 3.7 (3.5-5.0) g/dL Influenza Type A (PCR) (Not Detectd) Influenza Type B (PCR) (Not Detectd) RSV (PCR) (Not Detectd) SARS-CoV-2 (PCR) (Not Detectd) 03/23/24 03/23/24 Range/Units 15:56 15:56 WBC (3.8-10.6) k/uL RBC (4.30-5.90) m/uL Hgb (13.0-17.5) gm/dL Hct (39.0-53.0) % MCV (80.0-100.0) fL MCH (25.0-35.0) pg MCHC (31.0-37.0) g/dL RDW (11.5-15.5) % Plt Count (150-450) k/uL MPV Neutrophils % % Lymphocytes % % Monocytes % % Eosinophils % % Basophils % % Neutrophils # (1.3-7.7) k/uL Lymphocytes # (1.0-4.8) k/uL Monocytes # (0-1.0) k/uL Eosinophils # (0-0.7) k/uL Basophils # (0-0.2) k/uL PT (10.0-12.5) sec INR (<1.2) APTT (22.0-30.0) sec Sodium (137-145) mmol/L Potassium (3.5-5.1) mmol/L Chloride (98-107) mmol/L Carbon Dioxide (22-30) mmol/L Anion Gap mmol/L BUN (9-20) mg/dL Creatinine (0.66-1.25) mg/dL Est GFR (CKD-EPI)AfAm (>60 ml/min/1.73 sqM) Est GFR (CKD-EPI)NonAf (>60 ml/min/1.73 sqM) Glucose (74-99) mg/dL Plasma Lactic Acid Tereso 1.3 (0.7-2.0) mmol/L Calcium (8.4-10.2) mg/dL Magnesium (1.6-2.3) mg/dL Total Bilirubin (0.2-1.3) mg/dL AST (17-59) U/L ALT (4-49) U/L Alkaline Phosphatase (38-126) U/L Total Protein (6.3-8.2) g/dL Albumin (3.5-5.0) g/dL Influenza Type A (PCR) Not Detected (Not Detectd) Influenza Type B (PCR) Not Detected (Not Detectd) RSV (PCR) Not Detected (Not Detectd) SARS-CoV-2 (PCR) Not Detected (Not Detectd) Disposition Clinical Impression: Pneumonia, Sepsis Disposition: ADMITTED IP TO THIS HOSP Is patient prescribed a controlled substance at d/c from ED?: No Referrals: Reggie Reyes MD [Primary Care Provider] - 1-2 days Time of Disposition: 18:49
[2024-03-23 16:29] LABS: Basophils % (A) 0 %; Eosinophils # (A) 0.1 k/uL (0-0.7); Eosinophils % (A) 0 %; HCT 36.6 % (39.0-53.0); HGB 12.1 gm/dL (13.0-17.5); Lymphocytes # (A) 0.7 k/uL (1.0-4.8); Lymphocytes % (A) 6 %; MCH 29.8 pg (25.0-35.0); MCV 90.3 fL (80.0-100.0); Mean Platelet Volume 6.9; Monocytes # (A) 0.4 k/uL (0-1.0); Monocytes % (A) 3 %; Neutrophils # (A) 10.8 k/uL (1.3-7.7); Neutrophils % (A) 89 %; Platelet Count 213 k/uL (150-450); RBC 4.06 m/uL (4.30-5.90); RDW 12.9 % (11.5-15.5)
[2024-03-23 16:38] LABS: INR 1.1 (<1.2); Partial Thromboplastin Time 26.5 sec (22.0-30.0); Prothrombin Time 11.9 sec (10.0-12.5)
[2024-03-23 16:40] LABS: ALT 8 U/L (4-49); African American GFR (CKD) >90 (>60 ml/min/1.73 sqM); Albumin 3.7 g/dL (3.5-5.0); Anion Gap 10 mmol/L; Blood Urea Nitrogen 8 mg/dL (9-20); Carbon Dioxide 27 mmol/L (22-30); Chloride 98 mmol/L (98-107); Glucose 85 mg/dL (74-99); Non-African American GFR(CKD) >90 (>60 ml/min/1.73 sqM); Sodium 135 mmol/L (137-145); Total Bilirubin 0.9 mg/dL (0.2-1.3); Total Protein 7.5 g/dL (6.3-8.2)
[2024-03-23 16:46] LABS: AST 26 U/L (17-59); Alkaline Phosphatase 71 U/L (38-126); Magnesium 1.5 mg/dL (1.6-2.3)
--- NOTE | 2024-03-23 18:39 | XR ---
EXAMINATION TYPE: XR chest 2V DATE OF EXAM: 03/23/2024 4:43 PM CLINICAL INDICATION:Male, 83 years old with history of difficulty breathing; [facility] COMPARISON: 11/28/2023 TECHNIQUE: XR chest 2V. Frontal and lateral views of the chest.. FINDINGS: Redemonstration of background chronic fibrotic changes, greatest in the right more than left lung bas e and right lung apex. There are relatively diffuse interstitial and airspace opacities seen superimp osed on this background bilaterally. Suspicion for apical pleural thickening versus fluid capping on the right. No pneumothorax is visualized. Mediastinal silhouette is essentially unchanged. Heart is not grossly enlarged. Partially calcified a humberto. There is mild tenting with tracheal bowing towards the right again noted in the upper chest whi ch may be sequelae of fibrosis. Osseous structures show no clearly acute abnormalities. IMPRESSION: Bilateral interstitial and airspace opacities, superimposed on chronic fibrotic changes. This could r epresent acute infectious/inflammatory pulmonary process, with underlying malignancy/metastasis also in the differential. Recommend clinical correlation and follow-up to resolution after chosen therapy is completed. [facility], , 03/23/2024 6:36 PM
[2024-03-23] MEDS ORDERED: PNEUMONIA PROTOCOL UTILIZED 1 EACH MISC PO PRN (18:49)
[2024-03-23] MEDS: SODIUM CHLORIDE 0.9% 1,000 ML IV SCH (19:37)
[2024-03-23] MEDS: AZITHROMYCIN 500 MG in SODIUM CHLORIDE 0.9% 250 ML IVPB STA (21:00)
[2024-03-23] MEDS ORDERED: ALPRAZolam 0.25 MG TAB PO PRN (22:05)
[2024-03-23] MEDS ORDERED: LACTULOSE 20 GM/30 ML CUP PO PRN (22:05)
[2024-03-23] MEDS ORDERED: ONDANSETRON 4 MG/2 ML VIAL IVP PRN (22:05)
[2024-03-23] MEDS ORDERED: MELATONIN 3 MG TABLET PO PRN (22:05)
[2024-03-23] MEDS ORDERED: NALOXONE 0.4 MG/ML 1 ML VIAL IV PRN (22:05)
[2024-03-23] MEDS: IPRATROPIUM-ALBUTEROL 3 ML NEB INHALATION PRN (22:08)
[2024-03-23] MEDS: LEVOTHYROXINE 100 MCG TAB PO SCH (22:09)
[2024-03-23] MEDS: ACETAMINOPHEN TAB 500 MG TAB PO SCH (22:09)
[2024-03-23] MEDS: diphenhydrAMINE 25 MG CAP PO SCH (22:09)
[2024-03-23] MEDS: DOXAZOSIN 2 MG TAB PO SCH (22:09)
--- NOTE | 2024-03-23 22:09 | P.HPIM ---
History of Present Illness H&P Date: 03/23/24 Chief Complaint: Short of breath This is a pleasant 83-year-old patient who follows with Dr. Reggie Reyes. Chronic medical conditions include GERD, COPD, decreased hearing, hypertension, hypothyroid, bronchiectasis, esophageal narrowing. Bilateral hearing aids. Varicose veins. He follows with printing roller handler Dr. Vela. Patient chronically has got sputum expectoration. It often changes color. For about a week patient is being feeling unwell. Last went in to see his family doctor and got a flu shot. Later started feeling more unwell. He directed developed some fever and chills. Was tested for COVID that he was came back negative. Bringing up some thick sputum. Came in. Decreased appetite. Review of systems: GEN.: Tired fever and chills EYES: None HEENT: Decreased hearing NECK: None RESPIRATORY: As above CARDIOVASCULAR: [No edema GASTROINTESTINAL: None GENITOURINARY: None MUSCULOSKELETAL: None LYMPHATICS: None HEMATOLOGICAL: None PSYCHIATRY: None NEUROLOGICAL: None Social history: . Retired. Stopped smoking in 1983 Physical examination: VITAL SIGNS: 99.5, 111, 18, 121 x 70, 94% on 3.5 L upon presentation GENERAL: BMI 19.9, propped up in bed awake but short of breath. EYES: Pupils equal. Conjunctiva luz l. HEENT: External appearance of nose and ears normal, oral cavity grossly normal. Decreased hearing NECK: JVD not raised; masses not palpable. HEART: First and second heart sounds are normal; no edema. LUNGS: Respiratory rate increased, some wheezing, coarse crackles especially right base. ABDOMEN: Soft, nontender, liver spleen not palpable, no masses palpable. PSYCH: Alert and oriented x3; mood and affect luz l. MUSCULOSKELETAL:No Clubbing/cyanosis;muscles-grossly intact NEUROLOGICAL: Cranial nerves grossly intact; no facial asymmetry, power and sensation grossly intact. LYMPHATICS: No lymph nodes palpable in the axilla and neck INVESTIGATIONS, reviewed in the clinical context: March 23, 2024: White count 12 hemoglobin 12.1 platelets 213 sodium 135 potassium 4 BUN 8 creatinine 0.59 Influenza type A, type B, RSV, COVID-19: Not detected EKG tracing personally reviewed by me-sinus tachycardia. P pulmonale Chest x-ray film personally reviewed by me-scattered infiltrate. Unable to distinguish from chronic changes. Assessment plan: -Pneumonia suspect gram-negative organism. Patient had fever and chills. Bringing up significant sputum. Ceftriaxone. Mucinex. Sputum for Gram stain and culture. -Chronic bronchiectasis -Acute COPD exacerbation in a prior smoker DuoNeb every 4 -Chronic hard of hearing, uses bilateral hearing aids -BPH Hytrin 4 mg nightly -Hypothyroid Synthroid 100 mcg nightly -GERD Prilosec -Full code Care was discussed with the patient. Questions answered. Pulmonary consulted. Past Medical History Past Medical History: COPD, GERD/Reflux, Hearing Disorder / Deafness, Hypertension, Pneumonia, Prostate Disorder, Respiratory Disorder, Thyroid Disorder Additional Past Medical History / Comment(s): Current right elbow infection on Keflex, per patient Dr Pino aware. Bronchiectasis. Difficulty swallowing/narrowing of esophagus. Hx sepsis secondary to Pneumonia 07/2017. Bilateral hearing aid use. Wears compression stocking right leg due to varicose veins. History of Any Multi-Drug Resistant Organisms: None Reported Past Surgical History: Orthopedic Surgery, Tonsillectomy Additional Past Surgical History / Comment(s): Thyroidectomy, right knee arthroscopy, EGD with dilation X2, bronchoscopy, colonoscopy, bilateral cataracts removed. Past Anesthesia/Blood Transfusion Reactions: No Reported Reaction Additional Past Anesthesia/Blood Transfusion Reaction / Comment(s): Aspirated food in lung after EGD 11/2017. Past Psychological History: No Psychological Hx Reported Smoking Status: Former smoker Past Alcohol Use History: Rare Past Drug Use History: None Reported - Past Family History Mother Family Medical History: No Reported History Father History Unknown: Yes Medications and Allergies Home Medications Medication Instructions Recorded Confirmed Type Levothyroxine Sodium [Synthroid] 100 mcg PO HS 11/15/16 03/23/24 History Omeprazole [PriLOSEC] 20 mg PO DAILY 11/15/16 03/23/24 History guaiFENesin [Mucinex] 600 mg PO BID 01/17/24 03/23/24 History Acetaminophen/Diphenhydramine 1 tab PO HS 03/23/24 03/23/24 History [Tylenol PM 500-25mg] Albuterol Inhaler [Ventolin Hfa 2 puff INHALATION RT-QID PRN 03/23/24 03/23/24 History Inhaler] Calcium Carbonate/Vitamin D3 1 tab PO DAILY 03/23/24 03/23/24 History [Calcium 600-Vit D3 10 mcg (400 Iu)] Cholecalciferol (Vitamin D3) 50 mcg PO DAILY 03/23/24 03/23/24 History [Vitamin D3 (50 Mcg = 2000 Iu)] Ciprofloxacin HCl [Cipro] 500 mg PO Q12HR 03/23/24 03/23/24 History Fluticasone Propion/Salmeterol 1 puff INHALATION RT-BID 03/23/24 03/23/24 History [Advair 250-50 Diskus] Nac 650mg 650 mg PO TID 03/23/24 03/23/24 History Terazosin [Hytrin] 4 mg PO HS 03/23/24 03/23/24 History polyethylene glycoL 3350 [Miralax] 17 gm PO HS 03/23/24 03/23/24 History Allergies Allergy/AdvReac Type Severity Reaction Status Date / Time No Known Allergies Allergy Verified 01/18/24 11:53 Physical Exam Vitals: Vital Signs Temp Pulse Resp BP Pulse Ox 03/23/24 19:46 98.9 F 89 18 118/71 96 03/23/24 15:56 18 03/23/24 15:40 99.5 F 111 H 18 121/70 94 L Intake and Output 03/23/24 03/23/24 03/23/24 06:59 14:59 22:59 Other: Weight 63.049 kg Results CBC & Chem 7: 03/23/24 15:56 03/23/24 15:56 Labs: Abnormal Lab Results - Last 24 Hours (Table) 03/23/24 03/23/24 Range/Units 15:56 15:56 WBC 12.0 H (3.8-10.6) k/uL RBC 4.06 L (4.30-5.90) m/uL Hgb 12.1 L (13.0-17.5) gm/dL Hct 36.6 L (39.0-53.0) % Neutrophils # 10.8 H (1.3-7.7) k/uL Lymphocytes # 0.7 L (1.0-4.8) k/uL Sodium 135 L (137-145) mmol/L BUN 8 L (9-20) mg/dL Creatinine 0.59 L (0.66-1.25) mg/dL Magnesium 1.5 L (1.6-2.3) mg/dL
[2024-03-23] MEDS: ENOXAPARIN 40 MG/0.4 ML SYRINGE SQ SCH (22:10)
[2024-03-23] MEDS: polyethylene glycoL 3350 17 GM POWD.PACK PO SCH (22:10)
[2024-03-23] MEDS: IPRATROPIUM-ALBUTEROL 3 ML NEB INHALATION SCH (23:04)
--- NOTE | 2024-03-24 04:32 | P.CNPUL ---
History of Present Illness Consult date: 03/24/24 Requesting physician: Osbaldo Willard Reason for consult: pneumonia Chief complaint: Shortness of breath, cough History of present illness: Patient is an 83-year-old male with past medical history significant for bronchiectasis, COPD, former smoker, hypothyroidism, esophageal strictures with previous dilations, and hearing disorder. Patient does follow in the pulmonary office with Dr. Vela. He has history of acquired bronchiectasis, and frequent pulmonary infections. History of Pseudomonas infection, and is currently on oral fluoroquinolone treatment outpatient. Of note, recent bronchoscopy with BAL done July,. BAL cultures taken at that time did not show any growth. Patient returns to the emergency department yesterday afternoon complaining of worsening shortness of breath. He does have a productive cough which is chronic, however, there is a significant amount of brown sputum at bedside in sputum container. Currently, no hemoptysis. Denies chest pain. States he may have had a low-grade temperature at home. He has had reduced appetite and nausea. No actual emesis production. No other GI symptoms. Denies sick contacts. That he did test himself for COVID outpatient, and it was negative. He was again negative at our facility for COVID, influenza, and RSV. Chest x-ray taken on arrival demonstrates bilateral interstitial and airspace opacities, superimposed on chronic fibrotic changes. Which could represent an acute infectious process. CBC: WBC count 12, hemoglobin 12, hematocrit 36.6, platelets 213. CMP unremarkable. Normal saline infusing at 100 mL/h. Patient has been started on empiric antibiotics in the form of azithromycin and Rocephin. Currently afebrile. Currently resting fairly comfortably on 3 L/min nasal cannula. He is not in respiratory distress. Does not routinely use oxygen while at home. States that he has a percussion vest that he uses often. Review of Systems Constitutional: Reports fatigue, Reports fever, Reports poor appetite, Denies chills, Denies night sweats, Denies weight gain, Denies weight loss Ears, nose, mouth and throat: Denies dysphagia, Denies headache, Denies nasal congestion, Denies nasal discharge, Denies sinus pain, Denies sinus pressure, Denies sore throat Cardiovascular: Denies chest pain, Denies leg edema, Denies orthopnea, Denies palpitations, Denies paroxysmal nocturnal dyspnea Respiratory: Reports as per HPI Gastrointestinal: Reports nausea, Denies change in bowel habits, Denies constipation, Denies diarrhea, Denies vomiting Genitourinary: Denies dysuria, Denies hematuria, Denies urinary frequency, Denies urinary retention Musculoskeletal: Denies arm numbness/tingling, Denies leg numbness/tingling, Denies limitation of motion Integumentary: Denies rash Neurological: Denies headaches, Denies seizures, Denies visual changes Psychiatric: Denies anxiety, Denies depression Past Medical History Past Medical History: COPD, GERD/Reflux, Hearing Disorder / Deafness, Hypertension, Pneumonia, Prostate Disorder, Respiratory Disorder, Thyroid Disorder Additional Past Medical History / Comment(s): Current right elbow infection on Keflex, per patient Dr Pino aware. Bronchiectasis. Difficulty swallowing/narrowing of esophagus. Hx sepsis secondary to Pneumonia 07/2017. Bilateral hearing aid use. Wears compression stocking right leg due to varicose veins. History of Any Multi-Drug Resistant Organisms: None Reported Past Surgical History: Orthopedic Surgery, Tonsillectomy Additional Past Surgical History / Comment(s): Thyroidectomy, right knee arthroscopy, EGD with dilation X2, bronchoscopy, colonoscopy, bilateral cataracts removed. Past Anesthesia/Blood Transfusion Reactions: No Reported Reaction Additional Past Anesthesia/Blood Transfusion Reaction / Comment(s): Aspirated food in lung after EGD 11/2017. Past Psychological History: No Psychological Hx Reported Smoking Status: Former smoker Past Alcohol Use History: Rare Additional Past Alcohol Use History / Comment(s): Quit smoking in 1983, smoked for 20 yrs, 1 PPD. Past Drug Use History: None Reported - Past Family History Mother Family Medical History: No Reported History Father History Unknown: Yes Medications and Allergies Home Medications Medication Instructions Recorded Confirmed Type Levothyroxine Sodium [Synthroid] 100 mcg PO HS 11/15/16 03/23/24 History Omeprazole [PriLOSEC] 20 mg PO DAILY 11/15/16 03/23/24 History guaiFENesin [Mucinex] 600 mg PO BID 01/17/24 03/23/24 History Acetaminophen/Diphenhydramine 1 tab PO HS 03/23/24 03/23/24 History [Tylenol PM 500-25mg] Albuterol Inhaler [Ventolin Hfa 2 puff INHALATION RT-QID PRN 03/23/24 03/23/24 History Inhaler] Calcium Carbonate/Vitamin D3 1 tab PO DAILY 03/23/24 03/23/24 History [Calcium 600-Vit D3 10 mcg (400 Iu)] Cholecalciferol (Vitamin D3) 50 mcg PO DAILY 03/23/24 03/23/24 History [Vitamin D3 (50 Mcg = 2000 Iu)] Ciprofloxacin HCl [Cipro] 500 mg PO Q12HR 03/23/24 03/23/24 History Fluticasone Propion/Salmeterol 1 puff INHALATION RT-BID 03/23/24 03/23/24 History [Advair 250-50 Diskus] Nac 650mg 650 mg PO TID 03/23/24 03/23/24 History Terazosin [Hytrin] 4 mg PO HS 03/23/24 03/23/24 History polyethylene glycoL 3350 [Miralax] 17 gm PO HS 03/23/24 03/23/24 History Allergies Allergy/AdvReac Type Severity Reaction Status Date / Time No Known Allergies Allergy Verified 01/18/24 11:53 Physical Exam Vitals: Vital Signs Temp Pulse Pulse Resp BP BP Pulse Ox 03/24/24 03:31 97 03/24/24 02:29 97.8 F 75 16 100/53 97 03/23/24 23:59 81 03/23/24 23:48 80 03/23/24 22:20 85 03/23/24 22:09 83 03/23/24 19:46 98.9 F 89 18 118/71 96 03/23/24 15:56 18 03/23/24 15:40 99.5 F 111 H 18 121/70 94 L Intake and Output 03/23/24 03/23/24 03/24/24 14:59 22:59 06:59 Other: Weight 63.049 kg 63.049 kg GENERAL EXAM: Alert, 83-year-old white male, comfortable in no apparent dis tress. HEAD: Normocephalic and atraumatic EYES: Normal reaction of pupils, equal size. NOSE: Clear with pink turbinates. THROAT: No erythema or exudates. NECK: No masses, no JVD. CHEST: No chest wall deformity. LUNGS: Equal air entry with scattered rhonchi bilaterally. No wheezes, crackles, focal dullness. On 3 L/min nasal cannula. No conversational dyspnea or accessory muscle use.. CVS: S1 and S2 normal with no audible murmur, regular rhythm. No extra heart sounds ABDOMEN: No hepatosplenomegaly, active bowel sounds, no guarding or rigidity. SPINE: No scoliosis or deformity SKIN: No rashes CENTRAL NERVOUS SYSTEM: No focal deficits, tone is normal in all 4 extremities. EXTREMITIES: There is no peripheral edema, clubbing, or cyanosis. Peripheral pulses are intact. Results - Laboratory Findings CBC and BMP: 03/23/24 15:56 03/23/24 15:56 PT/INR, D-dimer PT 11.9 sec (10.0-12.5) 03/23/24 15:56 INR 1.1 (<1.2) 03/23/24 15:56 Abnormal lab findings: Abnormal Labs 03/23/24 03/23/24 15:56 15:56 WBC 12.0 H RBC 4.06 L Hgb 12.1 L Hct 36.6 L Neutrophils # 10.8 H Lymphocytes # 0.7 L Sodium 135 L BUN 8 L Creatinine 0.59 L Magnesium 1.5 L - Diagnostic Findings Chest x-ray: image reviewed Assessment and Plan Assessment: Acute hypoxemic respiratory failure, secondary to suspected multifocal community-acquired pneumonia and bronchiectasis; Chest x-ray taken on arrival demonstrates bilateral interstitial and airspace opacities, superimposed on chronic fibrotic changes. Which could represent an acute infectious process. Acute leukocytosis Chronic obstructive pulmonary disease History of bronchiectasis History of pulmonary fibrosis History of COVID-19 infection; negative for influenza, RSV, COVID on this admission History of esophageal stricture status post dilation History of GERD History of hypothyroidism Plan: Patient's medications, labs, chest x-ray reviewed. Patient started on empiric antibiotics in the emergency department. Check procalcitonin level Continue supplemental oxygen, to maintain oxygen saturation of 92% or greater. Continue brochodilators and add Symbicort inhaler. Encourage pulmonary toileting and mucolytic. Patient may be candidate for repeat bronchoscopy and BAL; this will be discussed with Dr. Vela later today. Patient previously hesitant. We will continue to follow, additional recommendations forthcoming. I have personally seen and examined the patient, performed the documentation and the assessment and plan as written. Number of minutes spent on the visit:20. Time with Patient: Greater than 30
--- NOTE | 2024-03-24 08:17 | XR ---
EXAMINATION TYPE: XR chest 1V portable DATE OF EXAM: 03/24/2024 5:17 AM CLINICAL INDICATION: Male, 83 years old with history of pneumonia; [facility] COMPARISON: 03/23/2024 TECHNIQUE: XR chest 1V portable Frontal view of the chest. FINDINGS: Lungs/Pleura: Similar multifocal airspace opacities streaky interstitial opacities. Increased lucency in the lung apices.. No evidence of pneumothorax or pleural effusion. Pulmonary vascularity: Unremarkable. Heart/mediastinum: Cardiomediastinal silhouette is unremarkable. Musculoskeletal: No acute osseous pathology. Other findings: None Lines/Tubes: IMPRESSION: Similar multifocal airspace opacities. Superimposed fibrotic changes not excluded. [facility], , 03/24/2024 8:15 AM
[2024-03-24] MEDS: CALCIUM CARB-VIT D 500 MG-5 MCG TAB PO SCH (08:50)
[2024-03-24] MEDS: guaiFENesin 600 MG TABLET.ER PO SCH ×2 (08:50→11:09)
[2024-03-24] MEDS: PANTOPRAZOLE 40 MG TABLET PO SCH (08:50)
[2024-03-24] MEDS: AZITHROMYCIN 500 MG TAB PO SCH (09:05)
[2024-03-24] MEDS: SYMBICORT 160-4.5 MCG INHALER INHALATION SCH (09:05)
[2024-03-24] MEDS: CHOLECALCIFEROL 25 MCG (1000 IU) TABLET PO SCH (09:05)
[2024-03-24] MEDS: methylPREDNISolone SOD SUCCI 125 MG/2 ML VIAL IV SCH (12:56)
--- NOTE | 2024-03-24 16:54 | P.PN ---
Progress Note - Text Progress Note Date: 03/24/24 Chief Complaint: Short of breath This is a pleasant 83-year-old patient who follows with Dr. Reggie Reyes. Chronic medical conditions include GERD, COPD, decreased hearing, hypertension, hypothyroid, bronchiectasis, esophageal narrowing. Bilateral hearing aids. Varicose veins. He follows with edm operator Dr. Vela. Patient chronically has got sputum expectoration. It often changes color. For about a week patient is being feeling unwell. Last went in to see his family doctor and got a flu shot. Later started feeling more unwell. He directed developed some fever and chills. Was tested for COVID that he was came back negative. Bringing up some thick sputum. Came in. Decreased appetite. March 24: Patient getting IV ceftriaxone. Coughing up sputum. Eating fair. IV Solu-Medrol added. And Symbicort. Still short of breath. Sputum culture sent. Patient told to sit up on a chair. Flutter valve ordered. Active Medications Acetaminophen (Acetaminophen Tab 500 Mg Tab) 500 mg PO HS [facility] Last Admin: 03/23/24 22:09 Dose: 500 mg Albuterol/Ipratropium (Ipratropium-Albuterol 3 Ml Neb) 3 ml INHALATION RT-Q4H PRN PRN Reason: shortness of breath Last Admin: 03/23/24 22:08 Dose: 3 ml Albuterol/Ipratropium (Ipratropium-Albuterol 3 Ml Neb) 3 ml INHALATION RT-Q4H [facility] Last Admin: 03/24/24 16:13 Dose: 3 ml Alprazolam (Alprazolam 0.25 Mg Tab) 0.25 mg PO Q6HR PRN PRN Reason: Anxiety Azithromycin (Azithromycin 500 Mg Tab) 500 mg PO DAILY [facility]; Protocol Stop: 03/25/24 09:01 Last Admin: 03/24/24 09:05 Dose: 500 mg Budesonide/Formoterol Fumarate (Symbicort 160-4.5 Mcg Inhaler) 2 puff INHALATION RT-BID [facility] Last Admin: 03/24/24 09:05 Dose: 2 puff Calcium Carbonate (Calcium Carb-Vit D 500 Mg-5 Mcg Tab) 1 each PO DAILY [facility] Last Admin: 03/24/24 08:50 Dose: 1 each Calcium Carbonate/Glycine (Calcium Carbonate 500 Mg Chewable) 1,000 mg PO Q4HR PRN PRN Reason: Dyspepsia Cholecalciferol (Cholecalciferol 25 Mcg (1000 Iu) Tablet) 50 mcg PO DAILY [facility] Last Admin: 03/24/24 09:05 Dose: 50 mcg Diphenhydramine HCl (Diphenhydramine 25 Mg Cap) 25 mg PO HS [facility] Last Admin: 03/23/24 22:09 Dose: 25 mg Doxazosin Mesylate (Doxazosin 2 Mg Tab) 2 mg PO HS [facility] Last Admin: 03/23/24 22:09 Dose: 2 mg Enoxaparin Sodium (Enoxaparin 40 Mg/0.4 Ml Syringe) 40 mg SQ DAILY [facility] Last Admin: 03/24/24 08:51 Dose: 40 mg Guaifenesin (Guaifenesin 600 Mg Tablet.Er) 600 mg PO QID [facility] Last Admin: 03/24/24 14:46 Dose: 600 mg Sodium Chloride (Saline 0.9%) 1,000 mls @ 100 mls/hr IV .Q10H [facility] Last Admin: 03/24/24 06:17 Dose: 100 mls/hr Ceftriaxone Sodium 2 gm/ (Sodium Chloride) 50 mls @ 100 mls/hr IVPB Q24HR [facility]; Protocol Stop: 03/27/24 09:29 Last Admin: 03/24/24 09:38 Dose: 100 mls/hr Lactulose (Lactulose 20 Gm/30 Ml Cup) 20 gm PO DAILY PRN PRN Reason: Constipation Levothyroxine Sodium (Levothyroxine 100 Mcg Tab) 100 mcg PO HS [facility] Last Admin: 03/23/24 22:09 Dose: 100 mcg Melatonin (Melatonin 3 Mg Tablet) 3 mg PO HS PRN PRN Reason: Insomnia Methylprednisolone Sodium Succinate (Methylprednisolone Sod Succi 125 Mg/2 Ml Vial) 60 mg IV Q6HR [facility] Last Admin: 03/24/24 12:56 Dose: 60 mg Miscellaneous Information (Pneumonia Protocol Utilized 1 Each Misc) 1 each PO ONCE PRN PRN Reason: Per Protocol Naloxone HCl (Naloxone 0.4 Mg/Ml 1 Ml Vial) 0.2 mg IV Q2M PRN PRN Reason: Opioid Reversal Ondansetron HCl (Ondansetron 4 Mg/2 Ml Vial) 4 mg IVP Q8HR PRN PRN Reason: Nausea And Vomiting Pantoprazole Sodium (Pantoprazole 40 Mg Tablet) 40 mg PO DAILY [facility] Last Admin: 03/24/24 08:50 Dose: 40 mg Polyethylene Glycol (Polyethylene Glycol 3350 17 Gm Powd.Pack) 17 gm PO HS [facility] Last Admin: 03/23/24 22:10 Dose: 17 gm Social history: . Retired. Stopped smoking in 1983 Physical examination: VITAL SIGNS: 97.9, 78, 18, 142 x 65, 97% 2 L GENERAL: BMI 19.9, propped up in bed awake, short of breath. EYES: Pupils equal. Conjunctiva luz l. HEENT: External appearance of nose and ears normal, oral cavity grossly normal. Decreased hearing NECK: JVD not raised; masses not palpable. HEART: First and second heart sounds are normal; no edema. LUNGS: Respiratory rate increased, some wheezing, coarse crackles especially r ight base. ABDOMEN: Soft, nontender, liver spleen not palpable, no masses palpable. PSYCH: Alert and oriented x3; mood and affect luz l. MUSCULOSKELETAL:No Clubbing/cyanosis;muscles-grossly intact INVESTIGATIONS, reviewed in the clinical context: March 24: Procalcitonin 0.52 March 23, 2024: White count 12 hemoglobin 12.1 platelets 213 sodium 135 potassium 4 BUN 8 creatinine 0.59 Influenza type A, type B, RSV, COVID-19: Not detected EKG tracing personally reviewed by me-sinus tachycardia. P pulmonale Chest x-ray film personally reviewed by me-scattered infiltrate. Unable to distinguish from chronic changes. Assessment plan: -Pneumonia suspect gram-negative organism. Patient had fever and chills. Bringing up significant sputum.: Slow to respond Ceftriaxone. Mucinex. Sputum for Gram stain and culture. -Chronic bronchiectasis Pulmonary following. Follows with Dr. Vela outpatient -Acute COPD exacerbation in a prior smoker DuoNeb every 4. IV Solu-Medrol. Symbicort. -Chronic hard of hearing, uses bilateral hearing aids -BPH Hytrin 4 mg nightly -Hypothyroid Synthroid 100 mcg nightly -GERD Prilosec -Full code Past Medical History Past Medical History: COPD, GERD/Reflux, Hearing Disorder / Deafness, Hypertension, Pneumonia, Prostate Disorder, Respiratory Disorder, Thyroid Disorder Additional Past Medical History / Comment(s): Current right elbow infection on Keflex, per patient Dr Pino aware. Bronchiectasis. Difficulty swallowing/narrowing of esophagus. Hx sepsis secondary to Pneumonia 07/2017. Bilateral hearing aid use. Wears compression stocking right leg due to varicose veins. History of Any Multi-Drug Resistant Organisms: None Reported Past Surgical History: Orthopedic Surgery, Tonsillectomy Additional Past Surgical History / Comment(s): Thyroidectomy, right knee arthroscopy, EGD with dilation X2, bronchoscopy, colonoscopy, bilateral cataracts removed. Past Anesthesia/Blood Transfusion Reactions: No Reported Reaction Additional Past Anesthesia/Blood Transfusion Reaction / Comment(s): Aspirated food in lung after EGD 11/2017. Past Psychological History: No Psychological Hx Reported Smoking Status: Former smoker Past Alcohol Use History: Rare Past Drug Use History: None Reported
--- NOTE | 2024-03-25 13:12 | P.PN ---
Subjective Progress Note Date: 03/25/24 Principal diagnosis: Acute hypoxic respiratory failure secondary to multifocal community-acquired pneumonia and bronchiectasis. Patient is an 83-year-old male with past medical history significant for bronchiectasis, COPD, former smoker, hypothyroidism, esophageal strictures with previous dilations, and hearing disorder. Patient does follow in the pulmonary office with Dr. Vela. He has history of acquired bronchiectasis, and frequent pulmonary infections. History of Pseudomonas infection, and is currently on oral fluoroquinolone treatment outpatient. Of note, recent bronchoscopy with BAL done July,. BAL cultures taken at that time did not show any growth. Patient returns to the emergency department yesterday afternoon complaining of worsening shortness of breath. He does have a productive cough which is chronic, however, there is a significant amount of brown sputum at bedside in sputum container. Currently, no hemoptysis. Denies chest pain. St ates he may have had a low-grade temperature at home. He has had reduced appetite and nausea. No actual emesis production. No other GI symptoms. Denies sick contacts. That he did test himself for COVID outpatient, and it was negative. He was again negative at our facility for COVID, influenza, and RSV. Chest x-ray taken on arrival demonstrates bilateral interstitial and airspace opacities, superimposed on chronic fibrotic changes. Which could represent an acute infectious process. CBC: WBC count 12, hemoglobin 12, hematocrit 36.6, platelets 213. CMP unremarkable. Normal saline infusing at 100 mL/h. Patient has been started on empiric antibiotics in the form of azithromycin and Ro cephin. Currently afebrile. Currently resting fairly comfortably on 3 L/min nasal cannula. He is not in respiratory distress. Does not routinely use oxygen while at home. States that he has a percussion vest that he uses often. Patient was evaluated today on 03/25/2024, patient is doing well, feeling better breathing easier compared to yesterday.On 2 L nasal cannula, does not seem to be in any distress, Gram stain of the sputum was reviewed, showing multiple PMNs and showing gram-negative bacilli, final culture is pending patient is on antibiotics/Rocephin. Procalcitonin today is 0.52, a bit elevated. Objective - Vital Signs Vital signs: Vital Signs Temp 98.2 F 03/25/24 08:00 Pulse 76 03/25/24 12:11 Resp 16 03/25/24 08:00 BP 114/62 03/25/24 08:00 Pulse Ox 94 L 03/25/24 08:00 FiO2 Intake & Output 03/24/24 03/25/24 03/25/24 18:59 06:59 18:59 Other: Voiding Method Toilet Toilet # Voids 4 2 - Exam GENERAL EXAM: Pleasant 83-year-old white male in no distress HEAD: Normocephalic and atraumatic EYES: Normal reaction of pupils, equal size. NOSE: Clear with pink turbinates. THROAT: No erythema or exudates. NECK: No masses, no JVD. CHEST: No chest wall deformity. LUNGS: Crackles and rhonchi noted bilaterally CVS: S1 and S2 normal with no audible murmur, regular rhythm. No extra heart sounds ABDOMEN: No hepatosplenomegaly, active bowel sounds, no guarding or rigidity. SKIN: No rashes CENTRAL NERVOUS SYSTEM: Alert oriented x 3 no gross deficit EXTREMITIES: no clubbing edema or cyanosis. - Labs CBC & Chem 7: 03/23/24 15:56 03/23/24 15:56 Labs: Microbiology - Last 24 Hours (Table) 03/23/24 19:13 Blood Culture - Preliminary Blood 03/24/24 02:50 Gram Stain - Preliminary Sputum Assessment and Plan Assessment: Impression: Acute hypoxemic respiratory failure, secondary to suspected multifocal co mmunity-acquired pneumonia and bronchiectasis; Acute leukocytosis Chronic obstructive pulmonary disease History of bronchiectasis History of pulmonary fibrosis History of COVID-19 infection; negative for influenza, RSV, COVID on this admission History of esophageal stricture status post dilation History of GERD History of hypothyroidism Recommendation: Continue antibiotics Continue bronchodilators Continue Solu-Medrol Adjust antibiotics based on the final culture from the sputum Continue present supportive care measures Patient was advised to bring his own vest because of his bronchiectasis from home and to use it in the hospital. Continue mucolytics Awaiting the final culture from the sputum and will address accordingly. Time with Patient: Less than 30
--- NOTE | 2024-03-25 14:39 | P.PN ---
Progress Note - Text Progress Note Date: 03/25/24 Chief Complaint: Short of breath This is a pleasant 83-year-old patient who follows with Dr. Reggie Reyes. Chronic medical conditions include GERD, COPD, decreased hearing, hypertension, hypothyroid, bronchiectasis, esophageal narrowing. Bilateral hearing aids. Varicose veins. He follows with registered vascular technologist (rvt) Dr. Vela. Patient chronically has got sputum expectoration. It often changes color. For about a week patient is being feeling unwell. Last went in to see his family doctor and got a flu shot. Later started feeling more unwell. He directed developed some fever and chills. Was tested for COVID that he was came back negative. Bringing up some thick sputum. Came in. Decreased appetite. March 24: Patient getting IV ceftriaxone. Coughing up sputum. Eating fair. IV Solu-Medrol added. And Symbicort. Still short of breath. Sputum culture sent. Patient told to sit up on a chair. Flutter valve ordered. March 25: Patient still coughing up sputum to decrease amount. Some improvement in breathing. Eating fair. Told the patient again to be up in a chair. Will also order incentive spirometry. Increase activity. Patient has a percussion vest at home. Pulm is asked him to bring it here. Cultures pending Active Medications Acetaminophen (Acetaminophen Tab 500 Mg Tab) 500 mg PO HS JULISSA Last Admin: 03/24/24 20:33 Dose: 500 mg Albuterol/Ipratropium (Ipratropium-Albuterol 3 Ml Neb) 3 ml INHALATION RT-Q4H PRN PRN Reason: shortness of breath Last Admin: 03/23/24 22:08 Dose: 3 ml Albuterol/Ipratropium (Ipratropium-Albuterol 3 Ml Neb) 3 ml INHALATION RT-Q4H JULISSA Last Admin: 03/25/24 11:59 Dose: 3 ml Alprazolam (Alprazolam 0.25 Mg Tab) 0.25 mg PO Q6HR PRN PRN Reason: Anxiety Budesonide/Formoterol Fumarate (Symbicort 160-4.5 Mcg Inhaler) 2 puff INHALATION RT-BID JULISSA Last Admin: 03/25/24 08:19 Dose: 2 puff Calcium Carbonate (Calcium Carb-Vit D 500 Mg-5 Mcg Tab) 1 each PO DAILY JULISSA Last Admin: 03/25/24 08:40 Dose: 1 each Calcium Carbonate/Glycine (Calcium Carbonate 500 Mg Chewable) 1,000 mg PO Q4HR PRN PRN Reason: Dyspepsia Cholecalciferol (Cholecalciferol 25 Mcg (1000 Iu) Tablet) 50 mcg PO DAILY [facility] Last Admin: 03/25/24 08:40 Dose: 50 mcg Diphenhydramine HCl (Diphenhydramine 25 Mg Cap) 25 mg PO HS [facility] Last Admin: 03/24/24 20:33 Dose: 25 mg Doxazosin Mesylate (Doxazosin 2 Mg Tab) 2 mg PO HS [facility] Last Admin: 03/24/24 21:11 Dose: 2 mg Enoxaparin Sodium (Enoxaparin 40 Mg/0.4 Ml Syringe) 40 mg SQ DAILY [facility] Last Admin: 03/25/24 08:40 Dose: 40 mg Guaifenesin (Guaifenesin 600 Mg Tablet.Er) 600 mg PO QID [facility] Last Admin: 03/25/24 12:54 Dose: 600 mg Sodium Chloride (Saline 0.9%) 1,000 mls @ 100 mls/hr IV .Q10H [facility] Last Admin: 03/25/24 04:12 Dose: 100 mls/hr Ceftriaxone Sodium 2 gm/ (Sodium Chloride) 50 mls @ 100 mls/hr IVPB Q24HR [facility]; Protocol Stop: 03/27/24 09:29 Last Admin: 03/25/24 08:40 Dose: 100 mls/hr Lactulose (Lactulose 20 Gm/30 Ml Cup) 20 gm PO DAILY PRN PRN Reason: Constipation Levothyroxine Sodium (Levothyroxine 100 Mcg Tab) 100 mcg PO HS [facility] Last Admin: 03/24/24 20:33 Dose: 100 mcg Melatonin (Melatonin 3 Mg Tablet) 3 mg PO HS PRN PRN Reason: Insomnia Methylprednisolone Sodium Succinate (Methylprednisolone Sod Succi 125 Mg/2 Ml Vial) 60 mg IV Q6HR [facility] Last Admin: 03/25/24 11:58 Dose: 60 mg Miscellaneous Information (Pneumonia Protocol Utilized 1 Each Misc) 1 each PO ONCE PRN PRN Reason: Per Protocol Naloxone HCl (Naloxone 0.4 Mg/Ml 1 Ml Vial) 0.2 mg IV Q2M PRN PRN Reason: Opioid Reversal Ondansetron HCl (Ondansetron 4 Mg/2 Ml Vial) 4 mg IVP Q8HR PRN PRN Reason: Nausea And Vomiting Pantoprazole Sodium (Pantoprazole 40 Mg Tablet) 40 mg PO DAILY [facility] Last Admin: 03/24/24 08:50 Dose: 40 mg Polyethylene Glycol (Polyethylene Glycol 3350 17 Gm Powd.Pack) 17 gm PO HS [facility] Last Admin: 03/24/24 20:34 Dose: 17 gm Social history: . Retired. Stopped smoking in 1983 Physical examination: VITAL SIGNS: 97.9, 62, 18, 121 x 60, 95% on 2 L GENERAL: BMI 19.9, propped up in bed awake, short of breath. EYES: Pupils equal. Conjunctiva luz l. HEENT: External appearance of nose and ears normal, oral cavity grossly normal. Decreased hearing NECK: JVD not raised; masses not palpable. HEART: First and second heart sounds are normal; no edema. LUNGS: Respiratory rate increased, some wheezing, coarse crackles at the bases ABDOMEN: Soft, nontender, liver spleen not palpable, no masses palpable. PSYCH: Alert and oriented x3; mood and affect luz l. MUSCULOSKELETAL:No Clubbing/cyanosis;muscles-grossly intact INVESTIGATIONS, reviewed in the clinical context: March 24: Procalcitonin 0.52 March 23, 2024: White count 12 hemoglobin 12.1 platelets 213 sodium 135 potassium 4 BUN 8 creatinine 0.59 Influenza type A, type B, RSV, COVID-19: Not detected EKG tracing personally reviewed by me-sinus tachycardia. P pulmonale Chest x-ray film personally reviewed by me-scattered infiltrate. Unable to distinguish from chronic changes. Assessment plan: -Pneumonia suspect gram-negative organism. Patient had fever and chills. Bringing up significant sputum.: Slow to respond Ceftriaxone. Mucinex. Sputum for Gram stain and culture. -Chronic bronchiectasis Pulmonary following. Follows with Dr. Vela outpatient Patient asked to bring from home as percussion vest -Acute COPD exacerbation in a prior smoker DuoNeb every 4. IV Solu-Medrol. Symbicort. -Chronic hard of hearing, uses bilateral hearing aids -BPH Hytrin 4 mg nightly -Hypothyroid Synthroid 100 mcg nightly -GERD Prilosec -Full code Add incentive spirometry. Get percussion vest from home. Increase activity. Past Medical History Past Medical History: COPD, GERD/Reflux, Hearing Disorder / Deafness, Hypertension, Pneumonia, Prostate Disorder, Respiratory Disorder, Thyroid Disorder Additional Past Medical History / Comment(s): Current right elbow infection on Keflex, per patient Dr Pino aware. Bronchiectasis. Difficulty swallowing/narrowing of esophagus. Hx sepsis secondary to Pneumonia 07/2017. Bilateral hearing aid use. Wears compression stocking right leg due to varicose veins. History of Any Multi-Drug Resistant Organisms: None Reported Past Surgical History: Orthopedic Surgery, Tonsillectomy Additional Past Surgical History / Comment(s): Thyroidectomy, right knee arthroscopy, EGD with dilation X2, bronchoscopy, colonoscopy, bilateral cataracts removed. Past Anesthesia/Blood Transfusion Reactions: No Reported Reaction Additional Past Anesthesia/Blood Transfusion Reaction / Comment(s): Aspirated food in lung after EGD 11/2017. Past Psychological History: No Psychological Hx Reported Smoking Status: Former smoker Past Alcohol Use History: Rare Past Drug Use History: None Reported
[2024-03-25] MEDS ORDERED: ONDANSETRON 4 MG/2 ML VIAL IVP PRN (15:30)
[2024-03-25] MEDS: CALCIUM CARBONATE 500 MG CHEWABLE PO PRN (22:11)
[2024-03-26 08:28] VITALS: BP 142/74; RESP 17; TEMP 98.1
--- NOTE | 2024-03-26 08:38 | XR ---
EXAMINATION TYPE: XR chest 1V portable DATE OF EXAM: 03/26/2024 8:29 AM CLINICAL INDICATION: Male, 83 years old with history of pneumonia/bronchiectasis; [facility] COMPARISON: Chest radiographs from 03/24/2024 TECHNIQUE: XR chest 1V portable Frontal view of the chest. FINDINGS: Lungs/Pleura: Airspace opacities in lung bases with interstitial thickening likely on the basis of CO PD/fibrotic lung disease. There is no evidence of pleural effusion, focal consolidation, or pneumotho rax. Pulmonary vascularity: Unremarkable. Heart/mediastinum: Cardiomediastinal silhouette is unremarkable. Musculoskeletal: No acute osseous pathology. Other findings: None IMPRESSION: Basilar fibrotic change bilaterally not significantly changed from couple days prior correlate for leyva perimposed infection. [facility], , 03/26/2024 8:36 AM
[2024-03-26] MEDS: LEVOFLOXACIN 750 MG TAB PO SCH (12:47)
[2024-03-26 13:17] VITALS: PULSE 80
--- NOTE | 2024-03-26 15:12 | P.PN ---
Subjective Progress Note Date: 03/26/24 Principal diagnosis: Acute hypoxic respiratory failure secondary to multifocal community-acquired pneumonia and bronchiectasis. Patient is an 83-year-old male with past medical history significant for bronchiectasis, COPD, former smoker, hypothyroidism, esophageal strictures with previous dilations, and hearing disorder. Patient does follow in the pulmonary office with Dr. Vela. He has history of acquired bronchiectasis, and frequent pulmonary infections. History of Pseudomonas infection, and is currently on oral fluoroquinolone treatment outpatient. Of note, recent bronchoscopy with BAL done July,. BAL cultures taken at that time did not show any growth. Patient returns to the emergency department yesterday afternoon complaining of worsening shortness of breath. He does have a productive cough which is chronic, however, there is a significant amount of brown sputum at bedside in sputum container. Currently, no hemoptysis. Denies chest pain. St ates he may have had a low-grade temperature at home. He has had reduced appetite and nausea. No actual emesis production. No other GI symptoms. Denies sick contacts. That he did test himself for COVID outpatient, and it was negative. He was again negative at our facility for COVID, influenza, and RSV. Chest x-ray taken on arrival demonstrates bilateral interstitial and airspace opacities, superimposed on chronic fibrotic changes. Which could represent an acute infectious process. CBC: WBC count 12, hemoglobin 12, hematocrit 36.6, platelets 213. CMP unremarkable. Normal saline infusing at 100 mL/h. Patient has been started on empiric antibiotics in the form of azithromycin and Ro cephin. Currently afebrile. Currently resting fairly comfortably on 3 L/min nasal cannula. He is not in respiratory distress. Does not routinely use oxygen while at home. States that he has a percussion vest that he uses often. Patient was evaluated today on 03/25/2024, patient is doing well, feeling better breathing easier compared to yesterday.On 2 L nasal cannula, does not seem to be in any distress, Gram stain of the sputum was reviewed, showing multiple PMNs and showing gram-negative bacilli, final culture is pending patient is on antibiotics/Rocephin. Procalcitonin today is 0.52, a bit elevated. Patient was evaluated today on 03/26/24, patient continues to feel better clinically, breathing easier., Remains on antibiotics, however we changed the antibiotics to Levaquin since the patient allowed to have Pseudomonas in the sputum. Final sensitivity is pending, if the Pseudomonas is sensitive to Levaquin we will likely send the patient home on Levaquin. 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 And in addition to his bronchiectasis he came in with superimposed pneumonia. New findings noted on the left lower lobe that were not present before. Again the findings are improving based on the chest x-ray today, clinically the patient is improving, I will consider discharge planning hopefully we could get the final sensitivity on the pseudomonal infection sometime today. Otherwise will discharge the patient home in a.m. on proper antibiotics Objective - Vital Signs Vital signs: Vital Signs Temp 98.1 F 03/26/24 08:00 Pulse 80 03/26/24 13:17 Resp 17 03/26/24 08:00 BP 142/74 03/26/24 08:00 Pulse Ox 97 03/26/24 08:00 FiO2 Intake & Output 03/25/24 03/26/24 03/26/24 18:59 06:59 18:59 Other: # Voids 1 3 # Bowel Movements 1 - Exam GENERAL EXAM: Pleasant 83-year-old white male in no distress HEAD: Normocephalic and atraumatic EYES: Normal reaction of pupils, equal size. NOSE: Clear with pink turbinates. THROAT: No erythema or exudates. NECK: No masses, no JVD. CHEST: No chest wall deformity. LUNGS: Minimal crackles at the bases no rhonchi no wheezes CVS: S1 and S2 normal with no audible murmur, regular rhythm. No extra heart sounds ABDOMEN: No hepatosplenomegaly, active bowel sounds, no guarding or rigidity. SKIN: No rashes CENTRAL NERVOUS SYSTEM: Alert oriented x 3 no gross deficit EXTREMITIES: no clubbing edema or cyanosis. - Labs CBC & Chem 7: 03/23/24 15:56 03/23/24 15:56 Labs: Microbiology - Last 24 Hours (Table) 03/24/24 02:50 Gram Stain - Final Sputum Sputum Culture - Final Pseudomonas spec 03/23/24 19:13 Blood Culture - Preliminary Blood Assessment and Plan Assessment: Impression: Acute hypoxemic respiratory failure, secondary to suspected multifocal pneumonia secondary to Pseudomonas aeruginosa with underlying bronchiectasis hence it is considered a complicated pneumonia Acute leukocytosis Chronic obstructive pulmonary disease History of bronchiectasis History of pulmonary fibrosis History of COVID-19 infection; negative for influenza, RSV, COVID on this admission History of esophageal stricture status post dilation History of GERD History of hypothyroidism Recommendation: Continue antibiotics Continue bronchodilators Change Solu-Medrol to prednisone Change antibiotics to Levaquin Continue present supportive care measures Could consider discharge planning either later today or in a.m. l. Continue mucolytics Will continue to follow Time with Patient: Less than 30
--- NOTE | 2024-03-26 22:13 | P.DS ---
Providers Date of admission: 03/23/24 18:50 Expected date of discharge: 03/26/24 Attending physician: Fabien Acharya Consults: 03/23/24 18:49 Consult Physician Routine Consulting Provider: Bertha Lowe Consult Reason/Comments: pneumonia Do you want consulting provider notified?: Yes Primary care physician: Reggie Reyes [facility] Course: Chief Complaint: Short of breath This is a pleasant 83-year-old patient who follows with Dr. Reggie Reyes. Chronic medical conditions include GERD, COPD, decreased hearing, hypertension, hypothyroid, bronchiectasis, esophageal narrowing. Bilateral hearing aids. Varicose veins. He follows with drapery estimator Dr. Vela. Patient chronically has got sputum expectoration. It often changes color. For about a week patient is being feeling unwell. Last went in to see his family doctor and got a flu shot. Later started feeling more unwell. He directed developed some fever and chills. Was tested for COVID that he was came back negative. Bringing up some thick sputum. Came in. Decreased appetite. March 24: Patient getting IV ceftriaxone. Coughing up sputum. Eating fair. IV Solu-Medrol added. And Symbicort. Still short of breath. Sputum culture sent. Patient told to sit up on a chair. Flutter valve ordered. March 25: Patient still coughing up sputum to decrease amount. Some improvement in breathing. Eating fair. Told the patient again to be up in a chair. Will also order incentive spirometry. Increase activity. Patient has a percussion vest at home. Pulm is asked him to bring it here. Cultures pending March 26: Up in a chair. Breathing better. Decreased sputum production. Patient cleared by Dr. Vela for discharge on Levaquin and prednisone taper. Questions answered. Sputum culture positive for Pseudomonas. Social history: . Retired. Stopped smoking in 1983 Physical examination: VITAL SIGNS: 98.1, 80, 17, 142 x 74, 97% 2 L GENERAL: BMI 19.9, in a chair, breathing better EYES: Pupils equal. Conjunctiva luz l. HEENT: External appearance of nose and ears normal, oral cavity grossly normal. Decreased hearing NECK: JVD not raised; masses not palpable. HEART: First and second heart sounds are normal; no edema. LUNGS: Respiratory rate increased, some wheezing, coarse crackles at the bases ABDOMEN: Soft, nontender, liver spleen not palpable, no masses palpable. PSYCH: Alert and oriented x3; mood and affect luz l. MUSCULOSKELETAL:No Clubbing/cyanosis;muscles-grossly intact INVESTIGATIONS, reviewed in the clinical context: March 24: Procalcitonin 0.52 March 23, 2024: White count 12 hemoglobin 12.1 platelets 213 sodium 135 potassium 4 BUN 8 creatinine 0.59 Influenza type A, type B, RSV, COVID-19: Not detected EKG tracing personally reviewed by me-sinus tachycardia. P pulmonale Chest x-ray film personally reviewed by me-scattered infiltrate. Unable to distinguish from chronic changes. Assessment plan: -Pneumonia secondary to Pseudomonas. Patient had fever and chills. Bringing up significant sputum.: Ceftriaxone. Mucinex. Sputum for Gram stain and culture. Discharged on Levaquin-7 days -Chronic bronchiectasis Pulmonary following. Follows with Dr. Vela outpatient Flutter valve, percussion vest -Acute COPD exacerbation in a prior smoker DuoNeb every 4. IV Solu-Medrol. Symbicort. Discharged on prednisone taper -Chronic hard of hearing, uses bilateral hearing aids -BPH Hytrin 4 mg nightly -Hypothyroid Synthroid 100 mcg nightly -GERD Prilosec -Full code Disposition Home Past Medical History Past Medical History: COPD, GERD/Reflux, Hearing Disorder / Deafness, Hypertension, Pneumonia, Prostate Disorder, Respiratory Disorder, Thyroid Disorder Additional Past Medical History / Comment(s): Current right elbow infection on Keflex, per patient Dr Alvarez salvador. Bronchiectasis. Difficulty swallowing/narrowing of esophagus. Hx sepsis secondary to Pneumonia 07/2017. Bilateral hearing aid use. Wears compression stocking right leg due to varicose veins. History of Any Multi-Drug Resistant Organisms: None Reported Past Surgical History: Orthopedic Surgery, Tonsillectomy Additional Past Surgical History / Comment(s): Thyroidectomy, right knee arthroscopy, EGD with dilation X2, bronchoscopy, colonoscopy, bilateral cataracts removed. Past Anesthesia/Blood Transfusion Reactions: No Reported Reaction Additional Past Anesthesia/Blood Transfusion Reaction / Comment(s): Aspirated food in lung after EGD 11/2017. Past Psychological History: No Psychological Hx Reported Smoking Status: Former smoker Past Alcohol Use History: Rare Past Drug Use History: None Reported Plan - Discharge Summary Discharge Rx Participant: No New Discharge Prescriptions: New Levofloxacin [Levaquin] 750 mg PO DAILY #7 tab predniSONE 10 mg PO DAILY #30 tab Continue Levothyroxine Sodium [Synthroid] 100 mcg PO HS Omeprazole [PriLOSEC] 20 mg PO DAILY guaiFENesin [Mucinex] 600 mg PO BID polyethylene glycoL 3350 [Miralax] 17 gm PO HS Calcium Carbonate/Vitamin D3 [Calcium 600-Vit D3 10 mcg (400 Iu)] 1 tab PO DAILY Acetaminophen/Diphenhydramine [Tylenol PM 500-25mg] 1 tab PO HS Fluticasone Propion/Salmeterol [Advair 250-50 Diskus] 1 puff INHALATION RT- BID Nac 650mg 650 mg PO TID Albuterol Inhaler [Ventolin Hfa Inhaler] 2 puff INHALATION RT-QID PRN PRN Reason: Shortness Of Breath Cholecalciferol (Vitamin D3) [Vitamin D3 (50 Mcg = 2000 Iu)] 50 mcg PO DAILY Terazosin [Hytrin] 4 mg PO HS Discontinued Ciprofloxacin HCl [Cipro] 500 mg PO Q12HR Discharge Medication List Levothyroxine Sodium [Synthroid] 100 mcg PO HS 11/15/16 [History] Omeprazole [PriLOSEC] 20 mg PO DAILY 11/15/16 [History] guaiFENesin [Mucinex] 600 mg PO BID 01/17/24 [History] Acetaminophen/Diphenhydramine [Tylenol PM 500-25mg] 1 tab PO HS 03/23/24 [History] Albuterol Inhaler [Ventolin Hfa Inhaler] 2 puff INHALATION RT-QID PRN 03/23/24 [History] Calcium Carbonate/Vitamin D3 [Calcium 600-Vit D3 10 mcg (400 Iu)] 1 tab PO DAILY 03/23/24 [History] Cholecalciferol (Vitamin D3) [Vitamin D3 (50 Mcg = 2000 Iu)] 50 mcg PO DAILY 03/23/24 [History] Fluticasone Propion/Salmeterol [Advair 250-50 Diskus] 1 puff INHALATION RT-BID 03/23/24 [History] Nac 650mg 650 mg PO TID 03/23/24 [History] Terazosin [Hytrin] 4 mg PO HS 03/23/24 [History] polyethylene glycoL 3350 [Miralax] 17 gm PO HS 03/23/24 [History] Levofloxacin [Levaquin] 750 mg PO DAILY #7 tab 03/26/24 [Rx] predniSONE 10 mg PO DAILY #30 tab 03/26/24 [Rx] Follow up Appointment(s)/Referral(s): Vangie Vela MD [STAFF PHYSICIAN] - 1 Week Reggie Reyes MD [Primary Care Provider] - 1-2 days Patient Instructions/Handouts: Pneumonia (DC)
[2024-03-27] MEDS ORDERED: predniSONE 20 MG TAB PO SCH (09:00)
== END 2024-03-26 16:54 | disposition still patient (30) | DRG 177 ==
LOC: EC 15:36 → 4SSUR 18:50 → 1SOBS 03-24 10:23
PROVIDERS: ADMIT Hospitalist; ATTEND Hospitalist
DX: J15.1 Pneumonia due to Pseudomonas (principal); J96.01 Acute respiratory failure with hypoxia; J44.0 Chronic obstructive pulmonary disease with (acute) lower respiratory infection; J47.0 Bronchiectasis with acute lower respiratory infection; J44.1 Chronic obstructive pulmonary disease with (acute) exacerbation; J84.10 Pulmonary fibrosis, unspecified; I10 Essential (primary) hypertension; E89.0 Postprocedural hypothyroidism; H91.93 Unspecified hearing loss, bilateral; I83.91 Asymptomatic varicose veins of right lower extremity; K21.9 Gastro-esophageal reflux disease without esophagitis; N40.0 Benign prostatic hyperplasia without lower urinary tract symptoms; Z86.16 Personal history of COVID-19; Z79.890 Hormone replacement therapy; Z79.52 Long term (current) use of systemic steroids; Z79.899 Other long term (current) drug therapy; Z87.891 Personal history of nicotine dependence; Z97.4 Presence of external hearing-aid
CPT/HCPCS: 36415; 71045; 71046; 80053; 83605; 83735; 84145; 85025; 85610; 85730; 87040; 87070; 87205; 87449; 87636; 93005; 94640; 94668; 94760; 96361; 96365; 96366; 96367; 96372; 99291